=== PATIENT | male | born 1945 | race Caucasian/White ===

== ENCOUNTER 2020-05-21 20:26 | Emergency (ER) | payer MEDICARE, OTHER ==
[2020-05-21 20:35] VITALS: RESP 18; TEMP 98.1
[2020-05-21 20:46] LABS: Basophils # (A) 0.1 k/uL (0-0.2); Basophils % (A) 1 %; Eosinophils # (A) 0.2 k/uL (0-0.7); Eosinophils % (A) 2 %; HGB 15.8 gm/dL (13.0-17.5); Lymphocytes # (A) 2.4 k/uL (1.0-4.8); Lymphocytes % (A) 27 %; MCHC 34.3 g/dL (31.0-37.0); MCV 93.5 fL (80.0-100.0); Mean Platelet Volume 7.6; Monocytes % (A) 11 %; Neutrophils # (A) 5.2 k/uL (1.3-7.7); Neutrophils % (A) 57 %; Platelet Count 228 k/uL (150-450); RBC 4.92 m/uL (4.30-5.90); RDW 12.4 % (11.5-15.5); WBC 9.1 k/uL (3.8-10.6)
[2020-05-21 20:55] LABS: Albumin 4.3 g/dL (3.5-5.0); Calcium 9.4 mg/dL (8.4-10.2); Partial Thromboplastin Time 23.2 sec (22.0-30.0); Potassium 4.6 mmol/L (3.5-5.1); Prothrombin Time 9.9 sec (9.0-12.0); Total Bilirubin 0.8 mg/dL (0.2-1.3); Total Protein 6.7 g/dL (6.3-8.2)
--- NOTE | 2020-05-21 20:58 | ED ---
General Adult HPI - General Chief complaint: Neuro Symptoms/Deficit Stated complaint: Possible Stroke Source: patient Mode of arrival: EMS Limitations: no limitations - History of Present Illness Initial comments: Patient is a 74-year-old male with past medical history of TIA on Plavix presents emergency Department with reported strokelike symptoms. Patient states that his symptoms started around 11:00 AM this morning. He was having difficulty finding his words. States that his symptoms were persistent all day to the point where he finally called EMS. EMS arrived and stated that he was having some expressive aphasia and some facial droop however this did entirely resolve by the time the patient got into the emergency department. He arrives with no visual complaints. Denies headaches or neck stiffness. No recent fevers or chills. Denies any unilateral numbness or weakness. No appreciable speech deficits from the patient at this time. Patient denies any chest pain or shortness of breath. No difficulties with ambulation. Patient does report to recent head trauma 12 days ago for which she fell and hit his head on a plastic garbage can. Denies that his symptoms are present at that time. No other alleviating, precipitating or modifying factors - Related Data Home Medications Medication Instructions Recorded Confirmed Citalopram Hydrobromide [CeleXA] 10 mg PO DAILY 04/05/15 04/05/15 Meloxicam [Mobic] 15 mg PO HS 04/05/15 04/05/15 Previous Rx's Medication Instructions Recorded HYDROcodone/APAP 5-325MG [[place] 5] 1 each PO Q6HR #30 tab 04/05/15 Naproxen [Naprosyn] 500 mg PO Q12HR #60 tab 04/05/15 Ondansetron Odt [Zofran Odt] 4 mg PO Q8HR #30 tab 04/05/15 Tamsulosin HCl [Flomax] 0.4 mg PO DAILY #30 cap 04/05/15 Allergies Allergy/AdvReac Type Severity Reaction Status Date / Time nitroglycerin AdvReac Unknown Verified 04/05/15 04:25 [From Nitro-Bid] Sulfa (Sulfonamide AdvReac Unknown Verified 04/05/15 04:25 Antibiotics) Review of Systems ROS Statement: Those systems with pertinent positive or pertinent negative responses have been documented in the HPI. ROS Other: All systems not noted in ROS Statement are negative. Past Medical History Past Medical History: No Reported History, CVA/TIA History of Any Multi-Drug Resistant Organisms: None Reported Past Surgical History: Appendectomy, Orthopedic Surgery Additional Past Surgical History / Comment(s): hand sx Past Psychological History: Anxiety Smoking Status: Never smoker Past Alcohol Use History: Occasional Past Drug Use History: None Reported General Exam Limitations: no limitations General appearance: alert, in no apparent distress Head exam: Present: atraumatic, normocephalic, normal inspection Eye exam: Present: normal appearance, PERRL, EOMI. Absent: scleral icterus, conjunctival injection, periorbital swelling ENT exam: Present: normal exam, mucous membranes moist Neck exam: Present: normal inspection. Absent: tenderness, meningismus, lymphadenopathy Respiratory exam: Present: normal lung sounds bilaterally. Absent: respiratory distress, wheezes, rales, rhonchi, stridor Cardiovascular Exam: Present: regular rate, normal rhythm, normal heart sounds. Absent: systolic murmur, diastolic murmur, rubs, gallop, clicks GI/Abdominal exam: Present: soft, normal bowel sounds. Absent: distended, tenderness, guarding, rebound, rigid Extremities exam: Present: normal inspection, full ROM, normal capillary refill. Absent: tenderness, pedal edema, joint swelling, calf tenderness Back exam: Present: normal inspection Neurological exam: Present: alert, oriented X3, CN II-XII intact Psychiatric exam: Present: normal affect, normal mood Skin exam: Present: warm, dry, intact, normal color. Absent: rash Course Vital Signs 05/21/20 05/21/20 20:29 21:18 Temperature 98.1 F Pulse Rate 88 77 Respiratory 18 18 Rate Blood Pressure 169/88 157/69 O2 Sat by Pulse 100 100 Oximetry - Reevaluation(s) Reevaluation #1: This case with Dr. Trevino called stated that the patient was positive for an acute on chronic subdural 05/21/20 21:00 EKG Findings - EKG Comments: EKG Findings:: EKG demonstrates normal sinus rhythm with a ventricular rate of 79. [place] interval 200. QRS 154. QTC of 465. There is a right bundle branch b lock present. No acute ST segment elevations or depressions Medical Decision Making - Medical Decision Making Upon arrival the patient is placed into room 1. A thorough history and physical exam was performed. NIH stroke scale is performed and the patient has a score of 0. Speech is intact. No facial droop. Patient has intact strength rosy aterally. Code stroke is not activated due to a negative NIH. Patient is immediately sent over for CT as well as CT angios of the head and neck without laboratory studies as the patient has no history of kidney disease. Laboratory studies returned and are negative. CT of the patient's brain is evaluated by Dr. Galvan any does call me to note that there is a large left-sided acute and chronic subdural. The patient is reevaluated and continues to have a negative NIH. He remains alert and oriented. I did discuss the diagnosis and treatment options. I recommended immediate transfer to a facility with neurosurgical capabilities. Patient agreed to this. I discussed the case with a [facility]. Accepting physician is Dr. Reid. Patient will be transported lights and sirens to [facility]. - Lab Data Result diagrams: 05/21/20 20:39 05/21/20 20:39 Lab Results 05/21/20 05/21/20 05/21/20 Range/Units 20:39 20:39 20:39 WBC 9.1 (3.8-10.6) k/uL RBC 4.92 (4.30-5.90) m/uL Hgb 15.8 (13.0-17.5) gm/dL Hct 46.0 (39.0-53.0) % MCV 93.5 (80.0-100.0) fL MCH 32.0 (25.0-35.0) pg MCHC 34.3 (31.0-37.0) g/dL RDW 12.4 (11.5-15.5) % Plt Count 228 (150-450) k/uL Neutrophils % 57 % Lymphocytes % 27 % Monocytes % 11 % Eosinophils % 2 % Basophils % 1 % Neutrophils # 5.2 (1.3-7.7) k/uL Lymphocytes # 2.4 (1.0-4.8) k/uL Monocytes # 1.0 (0-1.0) k/uL Eosinophils # 0.2 (0-0.7) k/uL Basophils # 0.1 (0-0.2) k/uL PT 9.9 (9.0-12.0) sec INR 1.0 (<1.2) APTT 23.2 (22.0-30.0) sec Sodium 137 (137-145) mmol/L Potassium 4.6 (3.5-5.1) mmol/L Chloride 106 (98-107) mmol/L Carbon Dioxide 23 (22-30) mmol/L Anion Gap 8 mmol/L BUN 30 H (9-20) mg/dL Creatinine 1.25 (0.66-1.25) mg/dL Est GFR (CKD-EPI)AfAm 65 (>60 ml/min/1.73 sqM) Est GFR (CKD-EPI)NonAf 56 (>60 ml/min/1.73 sqM) Glucose 179 H (74-99) mg/dL Calcium 9.4 (8.4-10.2) mg/dL Total Bilirubin 0.8 (0.2-1.3) mg/dL AST 34 (17-59) U/L ALT 27 (4-49) U/L Alkaline Phosphatase 75 (38-126) U/L Troponin I (0.000-0.034) ng/mL Total Protein 6.7 (6.3-8.2) g/dL Albumin 4.3 (3.5-5.0) g/dL 05/21/20 Range/Units 20:39 WBC (3.8-10.6) k/uL RBC (4.30-5.90) m/uL Hgb (13.0-17.5) gm/dL Hct (39.0-53.0) % MCV (80.0-100.0) fL MCH (25.0-35.0) pg MCHC (31.0-37.0) g/dL RDW (11.5-15.5) % Plt Count (150-450) k/uL Neutrophils % % Lymphocytes % % Monocytes % % Eosinophils % % Basophils % % Neutrophils # (1.3-7.7) k/uL Lymphocytes # (1.0-4.8) k/uL Monocytes # (0-1.0) k/uL Eosinophils # (0-0.7) k/uL Basophils # (0-0.2) k/uL PT (9.0-12.0) sec INR (<1.2) APTT (22.0-30.0) sec Sodium (137-145) mmol/L Potassium (3.5-5.1) mmol/L Chloride (98-107) mmol/L Carbon Dioxide (22-30) mmol/L Anion Gap mmol/L BUN (9-20) mg/dL Creatinine (0.66-1.25) mg/dL Est GFR (CKD-EPI)AfAm (>60 ml/min/1.73 sqM) Est GFR (CKD-EPI)NonAf (>60 ml/min/1.73 sqM) Glucose (74-99) mg/dL Calcium (8.4-10.2) mg/dL Total Bilirubin (0.2-1.3) mg/dL AST (17-59) U/L ALT (4-49) U/L Alkaline Phosphatase (38-126) U/L Troponin I <0.012 (0.000-0.034) ng/mL Total Protein (6.3-8.2) g/dL Albumin (3.5-5.0) g/dL Disposition Clinical Impression: Acute on chronic intracranial subdural hematoma Disposition: OTHER INSTITUTION NOT DEFINED Condition: Serious Is patient prescribed a controlled substance at d/c from ED?: No Referrals: Aurora Nichols MD [Primary Care Provider] - 1-2 days Time of Disposition: 21:21 - Out of Hospital Transfer - Req. Specs Out of Hospital Transfer - Requested Specifics: Other Emergency Center ([facility])
--- NOTE | 2020-05-21 20:58 | CT ---
EXAMINATION TYPE: CT brain wo con DATE OF EXAM: 05/21/2020 COMPARISON: None HISTORY: cva CT DLP: 1102.8 mGycm Automated exposure control for dose reduction was used. Images were obtained of the brain without contrast. There is widening of the subdural space over the left cerebral hemisphere convexity up to 1.6 cm in t hickness. There is mixed attenuation consistent with acute and chronic subdural hematoma. There is so me shift of the midline to the right side. The ventricles have normal size. I see no sign of cerebral edema. I see no evidence of cerebral parenchymal hemorrhage. The calvarium is intact. Cerebellum hyacinth ears normal. IMPRESSION: Large left side acute and chronic subdural hematoma.
--- NOTE | 2020-05-21 21:01 | XR ---
EXAMINATION TYPE: XR chest 2V DATE OF EXAM: 05/21/2020 COMPARISON: NONE HISTORY: Altered mental status TECHNIQUE: 2 views FINDINGS: There is some mild linear density at the left lung base. Heart is normal. There are no zo r masses. Costophrenic angles are clear. Bony thorax is intact. IMPRESSION: Mild subsegmental atelectasis. Normal heart.
[2020-05-21 21:19] VITALS: BP 157/69; PULSE 77
--- NOTE | 2020-05-21 21:38 | CT ---
EXAMINATION TYPE: CT angio head neck DATE OF EXAM: 05/21/2020 COMPARISON: None HISTORY: suspected cva CT DLP: 657.6 mGycm Automated exposure control for dose reduction was used. CONTRAST: Performed with IV Contrast, patient injected with 65cc mL of Isovue 370. Images obtained from the aortic arch to the vertex of the brain with IV contrast and 3-D post process ed images. There is normal branching pattern of the great vessels on the aortic arch. There is bilateral arteria l flow in the subclavian arteries. There is arterial flow in the common internal and external carotid arteries bilaterally. There is plaque formation and calcification at the posterior wall of the left carotid artery bifurcation. Similar change is seen also on the right side with some plaque formation. Lumen narrowing is less than 20%. There is arterial flow in both vertebral arteries. There is no surjit dence of carotid or vertebral artery aneurysm or dissection. There is large subdural fluid collection measuring up to 1.9 cm in thickness over the left hemisphere convexity consistent with subdural hemorrhage. There is some shift of the midline to the right side. There is arterial flow in the anterior middle and posterior cerebral arteries. There is arterial flow in the vertebrobasilar artery system. I see no evidence of intracranial arterial stenosis. There is no contrast extravasation. I see no pathologic enhancement. There is normal contrast opacification of the venous sinuses. IMPRESSION: Mild plaque at the carotid artery bifurcations and less than 20% stenosis at the origins of the inter nal carotid arteries. Large left cerebral hemisphere subdural hematoma with mass effect. No CT angiographic abnormality of the brain identified.
== END 2020-05-21 21:47 | disposition other institution (70) ==
LOC: EC 20:26
DX: I62.01 Nontraumatic acute subdural hemorrhage (principal); I62.03 Nontraumatic chronic subdural hemorrhage; R29.810 Facial weakness; R47.01 Aphasia; R29.700 NIHSS score 0; F41.9 Anxiety disorder, unspecified; Z79.899 Other long term (current) drug therapy; Z88.8 Allergy status to other drugs, medicaments and biological substances; Z88.2 Allergy status to sulfonamides; Z86.73 Personal history of transient ischemic attack (TIA), and cerebral infarction without residual deficits
CPT/HCPCS: 36415; 93005; 80053; 84484; 85025; 85610; 85730; 71046; 70496; 70450; 70498; 99285; Q9967

== ENCOUNTER → 2021-07-04 | Outpatient (CLI) | payer MEDICARE, OTHER ==
--- NOTE | 2021-07-04 14:25 | P.CONS ---
History of Present Illness - Reason for Consult Consult date: 07/04/21 - Chief Complaint Lower back pain - History of Present Illness This is a 75-year-old gentleman with history of lower back pain which started after intracranial subdural hematoma couple of years ago. The patient started having this pain after the surgery was also loss of balance. The pain is mostly axial with no radiation to the lower extremities. The pain starts after a few minutes of standing or walking. The patient denies any weakness in the lower extremities or any bowel or bladder problems. The lumbar spine MRI showed degenerative disease and facet arthropathy. He has diet-controlled diabetes and denies using any anticoagulants. Past Medical History Past Medical History: Seizure Disorder Additional Past Medical History / Comment(s): hx subdural hematoma History of Any Multi-Drug Resistant Organisms: None Reported Past Surgical History: Appendectomy, Orthopedic Surgery Additional Past Surgical History / Comment(s): hand sx rosy trigger x4 each hand, rosy knee surgery. brain bleed 06/03/21 with surgery and titanium plate Past Anesthesia/Blood Transfusion Reactions: No Reported Reaction Smoking Status: Never smoker - Past Family History Brother(s) Family Medical History: Cancer Additional Family Medical History / Comment(s): esophageal cancer Medications and Allergies Home Medications Medication Instructions Recorded Confirmed Type Citalopram Hydrobromide [CeleXA] 10 mg PO DAILY 04/05/15 04/05/15 History HYDROcodone/APAP 5-325MG [[place] 5] 1 each PO Q6HR #30 tab 04/05/15 Rx Meloxicam [Mobic] 15 mg PO HS 04/05/15 04/05/15 History Naproxen [Naprosyn] 500 mg PO Q12HR #60 tab 04/05/15 Rx Ondansetron Odt [Zofran Odt] 4 mg PO Q8HR #30 tab 04/05/15 Rx Tamsulosin HCl [Flomax] 0.4 mg PO DAILY #30 cap 04/05/15 Rx Allergies Allergy/AdvReac Type Severity Reaction Status Date / Time nitroglycerin AdvReac Unknown Verified 07/01/21 14:48 [From Nitro-Bid] Sulfa (Sulfonamide AdvReac Unknown Verified 07/01/21 14:48 Antibiotics) Physical Exam - EENT Eyes: PERRLA - Neurologic Neuro exam of the lower extremities showed normal and symmetrical deep tendon reflexes and normal muscle strength. The patient's ambulation is not steady due to imbalance. Positive tenderness in the lumbar paravertebral musculature Positive facet loading test in the lumbar area Neurologic: CNII-XII intact - Psychiatric Psychiatric: A&O x's 3, appropriate affect, intact judgment & insight Assessment and Plan Plan: This is a 75-year-old gentleman status post subdural hematoma evacuation around the left cerebral hemisphere. The patient has axial lower back pain and gait imbalance. The patient has lumbar DDD, lumbar spondylosis without myelopathy. He will benefit from a diagnostic lumbar medial branch block for levels L3 4, L4-L5, and L5-S1 under fluoroscopic guidance bilaterally. I thank you for the referral
[2021-07-04 14:31] VITALS: BP 109/70; PULSE 83; RESP 18; TEMP 97.9
== END ==
LOC: PNWHC3 13:40
PROVIDERS: ATTEND Anesthesiology
DX: M51.36 Other intervertebral disc degeneration, lumbar region (principal); M47.816 Spondylosis without myelopathy or radiculopathy, lumbar region; R26.89 Other abnormalities of gait and mobility; Z86.79 Personal history of other diseases of the circulatory system; Z98.890 Other specified postprocedural states; G40.909 Epilepsy, unspecified, not intractable, without status epilepticus; Z88.2 Allergy status to sulfonamides; E11.9 Type 2 diabetes mellitus without complications; Z88.8 Allergy status to other drugs, medicaments and biological substances
CPT/HCPCS: 99211

== ENCOUNTER 2021-07-15 05:47 | Day surgery (SDC) | payer MEDICARE, OTHER ==
[2021-07-14 10:05] VITALS: BMI 30.1
[2021-07-15] MEDS ORDERED: LACTATED RINGERS 1,000 ML IV SCH (06:01)
[2021-07-15] MEDS ORDERED: LIDOCAINE 1% (10MG/ML) FOR IV START INTRADERMA ONE (06:43)
[2021-07-15 06:50] LABS: Glucose,Whole Blood 164 mg/dL (75-99)
[2021-07-15 06:51] VITALS: RESP 16; TEMP 97.1
[2021-07-15] MEDS ORDERED: TRIAMCINOLONE ACETONIDE 40 MG/ML 1 ML VIAL ONE (07:06)
[2021-07-15] MEDS ORDERED: MIDAZOLAM 2 MG/2 ML VIAL ONE (07:06)
[2021-07-15] MEDS ORDERED: ROPIVACAINE 5MG/ML 20ML VIAL ONE (07:06)
[2021-07-15] MEDS ORDERED: fentaNYL (PF) 50 MCG/ML 2 ML AMP ONE (07:06)
[2021-07-15] MEDS ORDERED: IV FLUID CONTINUATION 1,000 ML IV ONE (07:29)
--- NOTE | 2021-07-15 07:30 | P.PCN ---
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 2- Lumber degenerative disc disease POSTOPERATIVE DIAGNOSIS: 1- Lumbar spondylosis with Facet Arthropathy without myelopathy . 2- Lumber degenerative disc disease PROCEDURE: Diagnostic bilateral L3 , L4 , and L5 medial branch block under fluoroscopy guidance(fluoroscopy images available in the radiology Department ) ( To target the facet joint between L4-5 , and L5-S1 ) ANESTHESIA:,Monitered anesthesia care ,as per anesthesia Department.. EBL: Minimal COMPLICATION: None PROCEDURE INDICATION: Chronic low back pain secondary to Facet arthropathy unresponsive to conservative treatment. PROCEDURE DESCRIPTION: the patient was seen and identified in the preop holding area , risks and benefits and possible complications of the procedure and alternative were discussed with the patient, and the patient agreed to proceed with the procedure and signed the consent and vital signs monitored during the procedure and fluoroscopy was used to maximize the benefit and accuracy of the needle placement, and sedation was given to decrease patient anxiety, patient was taken to the procedure room and placed in prone position vital signs monitored in the back prepped with chlorhexidine X3 then under strict sterile technique using a right oblique fluoroscopy ,the junction of the transverse process and the superior articulating process of the right L3 , L4 , and L5 vertebra which corresponding to the fluoroscopy image of the eye of the Fausto dog on the block side for the medial branches and subsequently , after local infiltration of skin and subcu tissuies with Ropivacaine 0.5 % , one mL at each level ,then 22-gauge Quincke-type needles , 3 needle was used , each one of them placed at the junction of the base of the transverse process and the superior articular process at the appropriate level, and the needle was advanced until the periosteum contacted, needle placement confirmed with AP oblique and lateral view and after appropriate needle placement confirmed, and after negative aspiration for heme and CSF and there was no paresthesia 1-1/2 mL of Ropivacaine 0.5% mixed with 20 mg Kenalog , then half mL injected at each level after negative aspiration the needle subsequently removed and the same procedure repeated for the left side at left side at L3 , L4 and L5 levels. At the end of the procedure and the needles removed and a bandage applied after the skin was cleaned the cleaning solution patient taken to recovery room in stable condition and monitors in the recovery room for 20-30 minutes and discharged home in stable condition after discharge criteria met and patient will follow up with the pain clinic in 2-4 weeks
--- NOTE | 2021-07-15 07:36 | FL ---
EXAMINATION TYPE: FL guided pain mgmt statistic DATE OF EXAM: 07/15/2021 CLINICAL HISTORY: Low back pain. TECHNIQUE: Fluoroscopy. COMPARISON: None. FINDINGS: Fluoroscopic guidance was provided during pain relief procedure performed by Dr. Merino . A total of 10 seconds of fluoroscopic time was utilized during the procedure and 4 spot images are acquired. Images acquired shows needle localization at multiple levels in the lumbar spine. IMPRESSION: As Above.
[2021-07-15 07:47] VITALS: BP 115/73; PULSE 66
== END 2021-07-15 08:06 | disposition home or self-care (01) ==
LOC: ORPAIN 05:47
PROVIDERS: ATTEND Specialist
DX: G89.29 Other chronic pain (principal); M47.816 Spondylosis without myelopathy or radiculopathy, lumbar region
CPT/HCPCS: 64493; 64494; J2250; J3301; J3010; J2795

== ENCOUNTER 2021-08-26 08:36 | Day surgery (SDC) | payer MEDICARE, OTHER ==
[2021-08-24 16:14] VITALS: BMI 31.1
[~2021-08-26 08:36] MED LIST: LACTATED RINGERS 1,000 ML IV SCH
[2021-08-26 09:37] VITALS: TEMP 98.2
[2021-08-26 09:37] LABS: Glucose,Whole Blood 207 mg/dL (75-99)
[2021-08-26] MEDS ORDERED: methylPREDNISolone ACETATE 40 MG/ML 1 ML VIAL ONE (09:49)
[2021-08-26] MEDS ORDERED: ROPIVACAINE 5MG/ML 20ML VIAL ONE (09:49)
[2021-08-26] MEDS ORDERED: fentaNYL (PF) 50 MCG/ML 2 ML AMP ONE (09:50)
[2021-08-26] MEDS ORDERED: MIDAZOLAM 2 MG/2 ML VIAL ONE (09:50)
--- NOTE | 2021-08-26 10:10 | P.PCN ---
Date of Procedure: 08/26/21 Procedure(s) Performed: PREOPERATIVE DIAGNOSIS : 1- Lumbar spondylosis with Facet Arthropathy without myelopathy . 2- Lumber degenerative disc disease POSTOPERATIVE DIAGNOSIS: 1- Lumbar spondylosis with Facet Arthropathy without myelopathy . 2- Lumber degenerative disc disease PROCEDURE: Diagnostic bilateral L3 , L4 , and L5 medial branch block under fluoroscopy guidance(fluoroscopy images available in the radiology Department ) ( To target the facet joint between L4-5 , and L5-S1 )# 2nd ANESTHESIA:,Monitered anesthesia care ,as per anesthesia Department.. EBL: Minimal COMPLICATION: None PROCEDURE INDICATION: Chronic low back pain secondary to Facet arthropathy unresponsive to conservative treatment. PROCEDURE DESCRIPTION: the patient was seen and identified in the preop holding area , risks and benefits and possible complications of the procedure and alternative were discussed with the patient, and the patient agreed to proceed with the procedure and signed the consent and vital signs monitored dur ing the procedure and fluoroscopy was used to maximize the benefit and accuracy of the needle placement, and sedation was given to decrease patient anxiety, patient was taken to the procedure room and placed in prone position vital signs monitored in the back prepped with chlorhexidine X3 then under strict sterile technique using a right oblique fluoroscopy ,the junction of the transverse process and the superior articulating process of the right L3 , L4 , and L5 vertebra which corresponding to the fluoroscopy image of the eye of the Fausto dog on the block side for the medial branches and subsequently , after local infiltration of skin and subcu tissuies with Ropivacaine 0.5 % , one mL at each level ,then 22-gauge Quincke-type needles , 3 needle was used , each one of them placed at the junction of the base of the transverse process and the superior articular process at the appropriate level, and the needle was advanced until the periosteum contacted, needle placement confirmed with AP oblique and lateral view and after appropriate needle placement confirmed, and after negative aspiration for heme and CSF and there was no paresthesia 1-1/2 mL of Ropivacaine 0.5% mixed with 20 mg Depo-Medrol , then half mL injected at each level after negative aspiration the needle subsequently removed and the same procedure repeated for the left side at left side at L3 , L4 and L5 levels. At the end of the procedure and the needles removed and a bandage applied after the skin was cleaned the cleaning solution patient taken to recovery room in stable condition and monitors in the recovery room for 20-30 minutes and discharged home in stable condition after discharge criteria met and patient will follow up with the pain clinic in 2-4 weeks
[2021-08-26] MEDS ORDERED: IV FLUID CONTINUATION 1,000 ML IV ONE (10:15)
[2021-08-26 10:27] LABS: Glucose,Whole Blood 234 mg/dL (75-99)
[2021-08-26] MEDS ORDERED: INSULIN ASPART (NovoLOG) 100 UNIT/ML VIAL SQ ONE (10:46)
[2021-08-26 11:03] VITALS: BP 122/70; PULSE 71; RESP 16
[2021-08-26 11:08] LABS: Glucose,Whole Blood 190 mg/dL (75-99)
--- NOTE | 2021-08-26 11:23 | FL ---
EXAMINATION TYPE: FL guided pain mgmt statistic DATE OF EXAM: 08/26/2021 FLUOROSCOPY Fluoroscopy time of 30 seconds was used during bilateral facet block. Intervention procedure, needle placement. 4 image/s document/s the procedure.
== END 2021-08-26 11:18 | disposition home or self-care (01) ==
LOC: ORPAIN 08:36
PROVIDERS: ATTEND Specialist
DX: M47.816 Spondylosis without myelopathy or radiculopathy, lumbar region (principal); G89.29 Other chronic pain
CPT/HCPCS: 64493; 64494; J2250; J1030; J3010; J2795

== ENCOUNTER → 2021-09-14 | Outpatient (CLI) | payer MEDICARE, OTHER ==
[2021-09-14 11:07] VITALS: BP 115/71; PULSE 80; RESP 18; TEMP 98.7
--- NOTE | 2021-09-14 11:14 | P.PN ---
Subjective Progress Note Date: 09/14/21 This is follow up visits for this 75 years old male with a chronic history of lower back pain which started after intracranial subdural hematoma couple of years ago. The patient started having this pain after the surgery was also loss of balance. The pain is mostly axial with no radiation to the lower e xtremities. The pain starts after a few minutes of standing or walking. The patient denies any weakness in the lower extremities or any bowel or bladder problems. The lumbar spine MRI showed degenerative disease and facet arthropathy. He has diet-controlled diabetes and denies using any anticoagulants. Recently we had done diagnostic medial branch block lumbar area at L4 5 and L5-S1, and get more than 80% improvement of his low back pain after each block, and the pain relief lasted for short term - EENT Eyes: PERRLA - Neurologic Neuro exam of the lower extremities showed normal and symmetrical deep tendon reflexes and normal muscle strength. The patient's ambulation is not steady due to imbalance. Positive tenderness in the lumbar paravertebral musculature Positive facet loading test in the lumbar area Neurologic: CNII-XII intact - Psychiatric Psychiatric: A&O x's 3, appropriate affect, intact judgment & insight Assessment and Plan Plan: This is a 75-year-old gentleman status post subdural hematoma evacuation around the left cerebral hemisphere. The patient has axial lower back pain and gait imbalance. The patient has lumbar DDD, lumbar spondylosis without myelopathy. He will benefit fromRFA lumbar medial branch block for levels L4-L5, and L5-S1 under fluoroscopic guidance bilaterally. Objective - Vital Signs Vital signs: Vital Signs Temp 98.7 F 09/14/21 10:56 Pulse 80 09/14/21 10:56 Resp 18 09/14/21 10:56 BP 115/71 09/14/21 10:56 Pulse Ox 96 09/14/21 10:56
== END ==
LOC: PNWHC3 10:26
PROVIDERS: ATTEND Specialist
DX: M51.36 Other intervertebral disc degeneration, lumbar region (principal); M47.816 Spondylosis without myelopathy or radiculopathy, lumbar region; R26.9 Unspecified abnormalities of gait and mobility; Z98.890 Other specified postprocedural states; Z88.2 Allergy status to sulfonamides; Z88.8 Allergy status to other drugs, medicaments and biological substances
CPT/HCPCS: 99211

== ENCOUNTER 2021-10-13 12:26 | Day surgery (SDC) | payer MEDICARE, OTHER ==
[2021-10-11 09:28] VITALS: BMI 30.1
[2021-10-13 13:08] VITALS: TEMP 98
[2021-10-13] MEDS: LACTATED RINGERS 1,000 ML IV SCH ×2 (13:20→13:23)
[2021-10-13 13:21] LABS: Glucose,Whole Blood 161 mg/dL (75-99)
[2021-10-13] MEDS ORDERED: MIDAZOLAM 2 MG/2 ML VIAL ONE (13:31)
[2021-10-13] MEDS ORDERED: fentaNYL (PF) 50 MCG/ML 2 ML AMP ONE (13:31)
[2021-10-13] MEDS ORDERED: TRIAMCINOLONE ACETONIDE 40 MG/ML 1 ML VIAL ONE (13:31)
[2021-10-13] MEDS ORDERED: ROPIVACAINE 5MG/ML 20ML VIAL ONE (13:31)
--- NOTE | 2021-10-13 14:03 | P.PCN ---
Date of Procedure: 10/13/21 Description of Procedure: Pre- and Post-operative Diagnosis: Lumbar facet arthropathy, and lumbar spondylosis without myelopathy. Procedure: Bilateral L4-5 radiofrequency thermocoagulation of medial branch under fluoroscopic guidance Bilateral L5-S1 dorsal ramus radiofrequency thermocoagulation under fluoroscopic guidance Surgeon: Anjelica Rosado Anesthesia: Local: 1% Lidocaine, IV sedation : Midazolam 2 mg, and fentanyl 50 micrograms. Complications: None Estimated blood loss: None. Specimen removed: None Fluoroscopic image: Saved to patient electronic medical records. Indications for Procedure: The patient is well known to pain clinic for his chronic low back pain management. The lumbar facet loading test was positive with a clinical diagnosis of lumbar facet arthropathy. Patient had marked decrease in pain after the diagnostic medial branch procedure. Came here for radiofrequency ablation for longer pain relief. PROCEDURE DESCRIPTION: The patient was seen and identified in the preoperative area. Risks, benefits, complications, and alternatives were discussed with the patient. The patient agreed to proceed with the procedure and signed the consent. IV was started. Vital signs were stable. Patient was taken to the procedure room and timeout was completed. The patient was placed in the prone position on procedure table and a pillow was placed under the abdomen to reduce lumbar lordosis. The lumbosacral area was prepped and draped in the usual sterile fashion. Critical pause was taken. Vital signs were closely monitored during the procedure. The fluoroscopic camera was placed in the anteroposterior position to identify the junction of superior articular process and its corresponding injection with its transverse process of Right side L4, L5, S1, which were anesthetized with 3 ml of 1% lidocaine. We used 18-gauge 100-mm curved, sharp radiofrequency cannula with 10-mm active tip for the procedure. The first cannula was guided by fluoroscopy to the S1 superior articular process and its corresponding junction with its ala. The second cannula was guided by fluoroscopy into the L5 superior articular process and its corresponding junction with its transverse process and pedicle. The third cannula was guided by fluoroscopy into the L4 SAP and its corresponding junction with its transverse process and its pedicle. After confirmation of needle tip position on oblique view, each site underwent motor testing at 2 Hz and 0 to 2.5 volts, and there was good motor stimulation in the back and no radicular symptoms or paresthesias. After confirmation of motor testing, each site was infiltrated with 0.5 mL at each level of block solution. Block solution contained 4 mL of 0.5% ropivacaine preservative free mixed with 40 MG of Kenalog. At this time, each site was ablated using continuous radiofrequency mode at 80 degrees Celsius for 90 seconds at each level. At the end of the procedure, each needle was retracted approximately 1 cm and the skin was infiltrated with 0.5% ropivacaine preservative free 1 ml at each site. Entire procedure repeated on the left side. Skin was cleansed and bandages were applied. Disposition : The patient tolerated the procedure very well. The patient was transferred to the recovery room and remained stable until discharged home. The patient was given detailed discharge instructions for infection, bleeding, and increased pain at the injection site, and was advised to seek immediate medical attention should significant side effects develop. The patient will be scheduled with Pain Clinic within 4 -8 weeks.
[2021-10-13] MEDS ORDERED: IV FLUID CONTINUATION 1,000 ML IV ONE (14:07)
[2021-10-13 14:09] VITALS: RESP 18
[2021-10-13 14:23] VITALS: BP 116/80; PULSE 77
--- NOTE | 2021-10-13 15:33 | FL ---
EXAMINATION TYPE: FL guided pain mgmt statistic DATE OF EXAM: 10/13/2021 HISTORY: Fluoroscopy time 12 seconds of fluoroscopy provided. IMPRESSION: 1. Fluoroscopy time.
== END 2021-10-13 14:39 | disposition home or self-care (01) ==
LOC: ORPAIN 12:26
DX: G89.29 Other chronic pain (principal); M47.816 Spondylosis without myelopathy or radiculopathy, lumbar region; E11.9 Type 2 diabetes mellitus without complications; M19.90 Unspecified osteoarthritis, unspecified site; R56.9 Unspecified convulsions; Z86.79 Personal history of other diseases of the circulatory system; Z98.49 Cataract extraction status, unspecified eye; Z98.890 Other specified postprocedural states; Z90.49 Acquired absence of other specified parts of digestive tract; Z88.2 Allergy status to sulfonamides; Z88.8 Allergy status to other drugs, medicaments and biological substances
CPT/HCPCS: 64635; 64636; J2250; J3301; J3010; J2795; 99152; 99153

== ENCOUNTER → 2021-11-17 | Outpatient (CLI) | payer MEDICARE, OTHER ==
[2021-11-17 13:57] VITALS: BP 116/70; PULSE 78; RESP 18; TEMP 98.7
--- NOTE | 2021-11-17 13:58 | P.PN ---
Subjective Progress Note Date: 11/17/21 Principal diagnosis: A 75 yr old male with a history of severe and chronic low back pain secondary to lumbar degenerative disc diseases and lumbar spondylosis with facet arthropathy presents today for evaluation for bilateral L4-L5 L5-S1 RFA. Patient completed this procedure in September 2021 and experienced only 5% pain relief. Pain level is 10/10 in intensity, sharp shooting in the lower lumbar spine where it meets the pelvis. Pain is provoked by sitting for prolonged p eriods of time. Pain is alleviated with medications and injections physical therapy stretching and rest. Patient is wheelchair-bound and presents with a female quantitative developer at side. Interventional pain procedures completed include bilateral L4-L5, L5-S1 RFA Patient is currently on OTC Motrin Patient denies any side effects of the medication(s), denies excessive drowsiness or sleepiness, denies suicidal ideation and reports that the current pain medication is helping to control the pain and improve activities of daily living. Patient denies any motor or sensory deficits. Patient denies any fever or night sweats, denies any change in the bowel movements or urination. Physical Examination: -Constitutional: Cooperative. Not in acute distress . -HEENT: Neck is supple. No lymphadenopathy. No thyromegaly. Normal thyroid size. Eyes: No ptosis , no icterus, no photophobia. ENT: No auditory deficits. Normal oropharynx. No Thrush. - Respiratory: Chest clear to auscultations bilaterally. No wheezing. No rhonchi. - Cardiovascular: Regular rate and rhythm. S1 / S2 , no S3 , no S4. - Gastrointestinal: Abdomen soft no tenderness. Bowel sounds positive in all four quadrants. No organomegaly. - Genitourinary: Deferred. - Neurologic: Cranial nerve II to XII intact. No focal neurological deficits. - Psychatric: Alert & oriented x 3. Matching mood & appropriate affect. Judgment and insight intact. - Lymphatic: No Lymphadenopathy. - Musculoskeletal: Cervical spine: Muscle bulk/ tone/ strength in the bilateral upper extremities normal. Facet loading test cervical area positive. Lumbar spine: Motor bulk/ tone/ strength lower extremities , thigh and legs : 5/5 Deep tendon reflexes : Normal Knee Jerk. Normal Ankle Jerk . Vertebral body tenderness to palpation over the L5 Lumbar Facet Loading Test positive below the L5 transverse bilaterally Straight Leg Raise: positive at 30 degree right side/ left side Rigo test: positive right side / left side Range of motion: Range of motion in flexion of the lumbar spine <60 degrees Range of motion: Extension of the lumbar spine <20 degrees Severe tenderness over the Sacroiliac joint: right side / left side Assessment and plan: Chronic low back pain secondary to lumbar degenerative disc disease , lumbar spondylosis with facet arthropathy without myelopathy Recommendation of bilateral L5 iliolumbar ligament injection May need an additional injection based on response to treatment Will contact Dr Elfego Stone, Neurology, for procedure as pt has a history of seizure disorder Denies use of aspirin or anticoagulants Risks benefits of procedure discussed and patient verbalized understanding All patient questions answered MAPS reviewed and it was appropriate. I have spent 31 minutes on patient care today. Dr Merino was available by phone for the evaluation of this patient. The time was used to review the medical records including relevant urine studies and Prescription history (MAPs), review of the available imaging, evaluation and examination of the patient, coordination of care with the medical staff and if applicable referring physicians, as well as creation of the medical record PQRS Measure Charge Sheet Mode of Arrival: Wheelchair - Pain Location Lower Back Non-Pharmacological Interventions: Home Exercise, Inactivity, Physical Therapy, Stretching Pharmacological Interventions: Block, PRN Medication PQRS Narrative: Smoking Status Never smoker Blood Pressure 116/70 Pain Intensity [Lower Back] 10 Scale Used Numeric (1 - 10) Hx Alcohol Use (MH) Yes Home Medications: Ambulatory Orders Atorvastatin [Lipitor] 40 mg PO HS 07/05/21 Cholecalciferol [Vitamin D3 (25 Mcg = 1000 Iu)] 50 mcg PO DAILY 07/05/21 Cyanocobalamin (Vitamin B-12) [Vitamin B-12] 500 mcg PO DAILY 07/05/21 Melatonin 5 mg PO HS 07/05/21 Ubidecarenone [Co Q-10] 100 mg PO HS 07/05/21 Valproic Acid [Depakene] 250 mg PO DAILY@1500 07/05/21 Venlafaxine HCl ER [Effexor Xr] 150 mg PO 0900 07/05/21 hydrALAZINE HCL [Apresoline] 100 mg PO 0900,1500,209907/05/21 levETIRAcetam 1,000 mg PO DAILY@0900,209907/05/21 Cetirizine HCl 10 mg PO HS 07/14/21 Ibuprofen 200 mg PO DIRECTED PRN 07/14/21 Valproic Acid [Depakene] 500 mg PO DAILY@0900,2100 07/14/21 Vit C/E/Zn/Coppr/Lutein/Zeaxan [Preservision Areds 2 Softgel] 1 each PO DAILY 07/14/21 metFORMIN HCL 500 mg PO PC-BID 09/12/21
== END ==
LOC: PNWHC3 12:57
PROVIDERS: ATTEND Physician Assistant Medical
DX: G89.29 Other chronic pain (principal); M51.36 Other intervertebral disc degeneration, lumbar region; M47.816 Spondylosis without myelopathy or radiculopathy, lumbar region; Z88.2 Allergy status to sulfonamides; Z88.8 Allergy status to other drugs, medicaments and biological substances
CPT/HCPCS: 99211

== ENCOUNTER 2021-12-06 13:10 | Day surgery (SDC) | payer MEDICARE, OTHER ==
[2021-12-02 15:50] VITALS: BMI 30.1
[2021-12-06 13:57] VITALS: TEMP 98
[2021-12-06 14:01] LABS: Glucose,Whole Blood 204 mg/dL (75-99)
[2021-12-06] MEDS ORDERED: LACTATED RINGERS 1,000 ML IV ONE (14:01)
[2021-12-06] MEDS ORDERED: LACTATED RINGERS 1,000 ML IV SCH (14:11)
[2021-12-06] MEDS ORDERED: INSULIN ASPART (NovoLOG) 100 UNIT/ML VIAL SQ ONE (14:17)
[2021-12-06] MEDS ORDERED: methylPREDNISolone ACETATE 40 MG/ML 1 ML VIAL ONE (14:25)
[2021-12-06] MEDS ORDERED: MIDAZOLAM 2 MG/2 ML VIAL ONE (14:25)
[2021-12-06] MEDS ORDERED: fentaNYL (PF) 50 MCG/ML 2 ML AMP ONE (14:25)
[2021-12-06] MEDS ORDERED: ROPIVACAINE 5MG/ML 20ML VIAL ONE (14:25)
--- NOTE | 2021-12-06 14:44 | P.PCN ---
Date of Procedure: 12/06/21 Procedure(s) Performed: Procedure= bilateral iliolumbar ligament steroid injection under fluoroscopy guidance (fluoroscopy image stored on file in the radiology Department ). Preoperative diagnosis= 1-bilateral iliolumbar ligament and neuralgia. 2- lumbar spondylosis with facet arthropathy . Postoperative diagnosis=Same as preop Diagnosis . Complication = none Condition= stable Anesthesia= moderate sedation with intravenous Versed 2 mg , and fentanyl 100 micrograms . Indication for the procedure= patient complaining of low back pain , examination was positive for severe tenderness over the iliolumbar ligament bilaterally and patient diagnosed with a bilateral iliolumbar ligaments nausea and he seems to have injection. Description of the procedure= procedure risk and benefits discussed with the patient, including but not limited, risk of infection and bleeding, and ALLERGIC reaction to the medication and not complete pain relief and patient agreed with the preceding patient taken to the operating room, placed in prone position or standard monitors applied to the patient then after induction of anesthesia back prepped with chlorhexidine 3 times , Then under strict sterile technique, first I did the right iliolumbar ligament the which was identified under fluoroscopy guidance been local infiltration of the skin and subcu interstitial with lidocaine 1% then 22-gauge Quincke Needle advanced slowly under fluoroscopy and placed at the location of the right iliolumbar ligament which is between the transverse process of right , and the sacral alae on the right side, after negative aspiration, after appropriate needle placement confirmed under fluoroscopy, ropivacaine 5 ml 0.5% mixed with 20 mg of Depo-Medrol, injected intermittently after negative aspiration, patient tolerated the procedure well without any complications ,and the same exact procedure was repeated for the left side iliolumbar ligament, patient tolerated the procedure well, without any completion ,and he will follow up in the pain clinic in a few weeks
[2021-12-06] MEDS ORDERED: IV FLUID CONTINUATION 600 ML IV ONE (14:48)
[2021-12-06 15:06] VITALS: RESP 16
[2021-12-06 15:28] VITALS: BP 121/74; PULSE 71
--- NOTE | 2021-12-06 16:32 | FL ---
Fluoroscopy HISTORY: Pain 6 seconds fluoroscopy time supplied to the referring clinician. 2 intraoperative C-arm images docume nt the procedure. See dictated report from anesthesia.
== END 2021-12-06 15:35 | disposition home or self-care (01) ==
LOC: ORPAIN 13:10
PROVIDERS: ATTEND Specialist
DX: G58.8 Other specified mononeuropathies (principal); M47.816 Spondylosis without myelopathy or radiculopathy, lumbar region; Z88.2 Allergy status to sulfonamides; Z88.8 Allergy status to other drugs, medicaments and biological substances; E11.9 Type 2 diabetes mellitus without complications
CPT/HCPCS: 77002; 20550; J2250; J1030; J3010; J2795; 99152

== ENCOUNTER → 2021-12-26 | Outpatient (CLI) | payer MEDICARE, OTHER ==
[2021-12-26 11:42] VITALS: BP 124/65; PULSE 82; RESP 18; TEMP 98.6
--- NOTE | 2021-12-26 12:34 | P.PN ---
Subjective Progress Note Date: 12/26/21 Principal diagnosis: A 76 yr old male with at side with a history of severe and chronic low back pain secondary to lumbar degenerative disc diseases and lumbar spondylosis with facet arthropathy presents today for evaluation status post bilateral iliolumbar ligament injection #1. Patient states he experienced 80-85% pain relief for 4 days status post procedure. Admits he was able to sit on the toilet, stand to bend over to lift pants up with ease. Pain level is currently at 0 out of 10 in intensity when sitting but escalates as high as 9 out of 10 in intensity when walking, standing or lifting. Pain is dull/ achy in the lumbar spine without radiation of pain. Pain is alleviated with medications, topicals, injections, ice and heat which has been ineffective, physical therapy that ended 09/04, home exercise regimen as tolerated, use of a cane or lumbar brace or wheelchair for ambulation, massage therapy that also ended 09/04 and rest. Interventional pain procedures completed include bilateral RFA of L4-L5, L5-S1; Bilateral iliolumbar ligament injection #1. Patient is currently on Motrin OTC, Aspercreme. Patient denies any side effects of the medication(s), denies excessive drowsiness or sleepiness, denies suicidal ideation and reports that the current pain medication is helping to control the pain and improve activities of daily living. Patient denies any motor or sensory deficits. Patient denies any fever or night sweats, denies any change in the bowel movements or urination. Physical Examination: -Constitutional: Cooperative. Not in acute distress . -HEENT: Neck is supple. No lymphadenopathy. No thyromegaly. Normal thyroid size. Eyes: No ptosis , no icterus, no photophobia. ENT: No auditory deficits. Normal oropharynx. No Thrush. - Respiratory: Chest clear to auscultations bilaterally. No wheezing. No rhonchi. - Cardiovascular: Regular rate and rhythm. S1 / S2 , no S3 , no S4. - Gastrointestinal: Abdomen soft no tenderness. Bowel sounds positive in all four quadrants. No organomegaly. - Genitourinary: Deferred. - Neurologic: Cranial nerve II to XII intact. No focal neurological deficits. - Psychatric: Alert & oriented x 3. Matching mood & appropriate affect. Judgment and insight intact. - Lymphatic: No Lymphadenopathy. - Musculoskeletal: Cervical spine: Muscle bulk/ tone/ strength in the bilateral upper extremities normal. Facet loading test cervical area positive. Lumbar spine: Motor bulk/ tone/ strength lower extremities , thigh and legs : 5/5 Deep tendon reflexes : Normal Knee Jerk. Normal Ankle Jerk . Vertebral body tenderness to palpation over L5 Lumbar Facet Loading Test positive Straight Leg Raise: positive at 30 degrees right side/ left side Gaenslen's Test positive Sacral spine : Severe tenderness over the Sacroiliac joint: right side / left side Range of motion: Flexion of the lumbar spine <60 degrees Range of motion: Extension of the lumbar spine <20 degrees Gaenslen's Test positive Rigo test: positive right side / left side Assessment and plan: Chronic low back pain secondary to lumbar degenerative disc disease , lumbar spondylosis with facet arthropathy without myelopathy Recommendation of repeat bilateral iliolumbar ligament injection #2. Risks, benefits of procedure discussed and patient verbalized understanding. Denies anticoagulant use. Admits to a medical history of diabetes mellitus and taking Glucophage. May consider a third iliolumbar ligament injection [facility]. All patient questions answered MAPS reviewed and it was appropriate. I have spent 31 minutes on patient care today. Dr Merino was available by phone for the evaluation of this patient. The time was used to review the medical records including relevant urine studies and Prescription history (MAPs), review of the available imaging, evaluation and examination of the patient, coordination of care with the medical staff and if applicable referring physicians, as well as creation of the medical record Objective - Vital Signs Vital signs: Vital Signs Temp 98.6 F 12/26/21 11:36 Pulse 82 12/26/21 11:36 Resp 18 12/26/21 11:36 BP 124/65 12/26/21 11:36 Pulse Ox 94 L 12/26/21 11:36 Intake & Output 12/25/21 12/26/21 12/26/21 18:59 06:59 18:59 Weight 95.254 kg PQRS Measure Charge Sheet Mode of Arrival: Ambulatory, Wheelchair - Pain Location Lower Back Non-Pharmacological Interventions: Exercise, Home Exercise, Inactivity, Massage, Physical Therapy, Position/Reposition, Sitting, Stretching Pharmacological Interventions: Block, PRN Medication, Topical Medication PQRS Narrative: Smoking Status Never smoker Blood Pressure 124/65 Pain Intensity [Lower Back] 9 Scale Used Numeric (1 - 10) Hx Alcohol Use (MH) Yes Home Medications: Ambulatory Orders Atorvastatin [Lipitor] 40 mg PO HS 07/05/21 Cholecalciferol [Vitamin D3 (25 Mcg = 1000 Iu)] 50 mcg PO DAILY 07/05/21 Cyanocobalamin (Vitamin B-12) [Vitamin B-12] 500 mcg PO DAILY 07/05/21 Melatonin 5 mg PO HS 07/05/21 Ubidecarenone [Co Q-10] 100 mg PO HS 07/05/21 Valproic Acid [Depakene] 250 mg PO DAILY@1500 07/05/21 Venlafaxine HCl ER [Effexor Xr] 150 mg PO DAILY 07/05/21 hydrALAZINE HCL [Apresoline] 100 mg PO TID 07/05/21 levETIRAcetam 1,000 mg PO BID 07/05/21 Cetirizine HCl 10 mg PO HS 07/14/21 Ibuprofen 200 mg PO DIRECTED PRN 07/14/21 Valproic Acid [Depakene] 500 mg PO DAILY@0900,2100 07/14/21 Vit C/E/Zn/Coppr/Lutein/Zeaxan [Preservision Areds 2 Softgel] 1 each PO DAILY 07/14/21 metFORMIN HCL 500 mg PO PC-BID 09/12/21
== END ==
LOC: PNWHC3 10:46
PROVIDERS: ATTEND Physician Assistant Medical
DX: M51.36 Other intervertebral disc degeneration, lumbar region (principal); M47.816 Spondylosis without myelopathy or radiculopathy, lumbar region; G89.29 Other chronic pain; E11.9 Type 2 diabetes mellitus without complications; Z79.84 Long term (current) use of oral hypoglycemic drugs; Z88.2 Allergy status to sulfonamides; Z88.8 Allergy status to other drugs, medicaments and biological substances
CPT/HCPCS: 99211

== ENCOUNTER 2022-01-12 09:09 | Day surgery (SDC) | payer MEDICARE, OTHER ==
[2022-01-10 14:28] VITALS: BMI 30.1
[2022-01-12 09:37] VITALS: TEMP 97.9
[2022-01-12 09:43] LABS: Glucose,Whole Blood 203 mg/dL (75-99)
--- NOTE | 2022-01-12 09:53 | P.PCN ---
Date of Procedure: 01/12/22 Description of Procedure: Procedure: Iliolumbar injection bilateral Diagnosis: Lumbar spondylosis without myelopathy Postop diagnosis same Patient was evaluated in the preoperative area as well as in the clinic. An iliolumbar injection was recommended given his low back pain with tenderness to palpation over the lumbar paraspinal muscles. He recently had a radiofrequency ablation done. He reports that the pain is worse in the right compared to left. Procedure: Patient was brought into the room after consent was signed. Risks and benefits were explained in the preoperative tear area. The patient chose to have the procedure without any IV anesthesia. Patient was brought into the room and placed in the prone position. The back was cleansed with ChloraPrep solution. Landmarks were palpated and the area was cleansed and covered for sterility. At that point a total of 20 ML's of 0.25% ropivacaine were injected in the bilateral iliolumbar ligament. A 25-gauge 3-1/2 inch spinal needle was used and was removed intact. A Band-Aid was placed over the puncture site on either side. Patient was taken to the recovery room in stable condition. Patient will follow up in the clinic as needed moving forward. We'll follow-up in about 4 weeks to determine next best step
[2022-01-12] MEDS ORDERED: methylPREDNISolone ACETATE 40 MG/ML 1 ML VIAL ONE (09:55)
[2022-01-12] MEDS ORDERED: ROPIVACAINE 5MG/ML 20ML VIAL ONE (09:55)
[2022-01-12 10:12] VITALS: RESP 16
[2022-01-12 10:25] VITALS: BP 124/57; PULSE 75
== END 2022-01-12 10:40 | disposition home or self-care (01) ==
LOC: ORPAIN 09:09
PROVIDERS: ATTEND Hospitalist
DX: M47.816 Spondylosis without myelopathy or radiculopathy, lumbar region (principal)
CPT/HCPCS: 20550; J1030; J2795

== ENCOUNTER 2022-01-16 14:50 | Emergency (ER) | payer MEDICARE, OTHER ==
[2022-01-16 15:14] VITALS: BP 133/89; RESP 16; TEMP 97.8
[2022-01-16 15:34] VITALS: PULSE 75
--- NOTE | 2022-01-16 18:05 | XR ---
EXAMINATION TYPE: XR KUB DATE OF EXAM: 01/16/2022 5:34 PM INDICATION: Patient age:Male; 76 years old; Reason for study: no BM x5 days; COMPARISON: CT abdomen and pelvis 04/05/2015. TECHNIQUE: One radiographic view of the abdomen was obtained. FINDINGS: The bowel gas pattern is nonspecific without dilated loops of small or large bowel. There i s a moderate to large stool burden throughout the colon. There is no evidence for organomegaly or pne umoperitoneum. The osseous structures are intact with multilevel disc degeneration changes of the lo wer spine.. Nonspecific calcification in the right abdomen could represent renal calculus versus oth er. This measures up to 8 mm. Fecal material and gas are demonstrated throughout the colon and rectum . IMPRESSION: Moderate to large stool burden throughout the colon which could be seen in setting of constipation.
[2022-01-16] MEDS ORDERED: NA PHOS,M-B/NA PHOS,DI-BA 133 ML ENEMA RECTAL STA (18:10)
--- NOTE | 2022-01-16 18:38 | ED ---
General Adult HPI - General Chief complaint: Urogenital Stated complaint: constipation Time Seen by Provider: 01/16/22 16:50 Source: patient Mode of arrival: EMS - History of Present Illness Initial comments: This 76-year-old male with past medical history CVA, diabetes mellitus, hypertension and seizure disorder presents to the emergency Department with constipation 5 days. Patient states he has experienced this in the past and was able to have a bowel movement after taking MiraLAX, however he did try taking MiraLAX over the last 5 days and does not experienced any relief. Patient states last bowel movement was last Sunday, however he did pass one piece of stool today about the size of an egg. Patient states he is experiencing some abdominal discomfort but denies any abdominal pain, fever, vomiting or nausea. Patient states some lying flat he does not experience any abdominal discomfort, however when he sits up he states it does cause increased pressure in his lower abdomen. Patient states he has been passing gas as usual. Patient states he has been eating and drinking as normal. Patient states he did try a normal saline enema today without any relief. Patient denies any fever, chest pain, shortness of breath, abdominal pain, nausea, vomiting, headache, lightheadedness, change in vision, weakness. - Related Data Home Medications Medication Instructions Recorded Confirmed Atorvastatin [Lipitor] 40 mg PO HS@209907/05/21 01/16/22 Cholecalciferol [Vitamin D3 (25 50 mcg PO DAILY@89907/05/21 01/16/22 Mcg = 1000 Iu)] Melatonin 5 mg PO HS@209907/05/21 01/16/22 Ubidecarenone [Co Q-10] 100 mg PO HS@209907/05/21 01/16/22 Valproic Acid [Depakene] 250 mg PO DAILY@1500 07/05/21 01/16/22 Venlafaxine HCl ER [Effexor Xr] 150 mg PO DAILY@89907/05/21 01/16/22 hydrALAZINE HCL [Apresoline] 100 mg PO TID@0900,1500,209907/05/21 01/16/22 levETIRAcetam 1,000 mg PO BID@0900,209907/05/21 01/16/22 Cetirizine HCl 10 mg PO HS@209907/14/21 01/16/22 Valproic Acid [Depakene] 500 mg PO DAILY@0900,2100 07/14/21 01/16/22 Vit C/E/Zn/Coppr/Lutein/Zeaxan 1 cap PO DAILY@0900 07/14/21 01/16/22 [Preservision Areds 2 Softgel] metFORMIN HCL 500 mg PO BID@0900,1900 09/12/21 01/16/22 Cyanocobalamin [Vitamin B-12] 500 mcg PO DAILY@0900 01/16/22 01/16/22 Previous Rx's Medication Instructions Recorded Docusate [Colace] 100 mg PO BID #10 capsule 01/16/22 Allergies Allergy/AdvReac Type Severity Reaction Status Date / Time nitroglycerin AdvReac Severe severe Verified 01/16/22 18:07 [From Nitro-Bid] headaches. Sulfa (Sulfonamide AdvReac Severe severe Verified 01/16/22 18:07 Antibiotics) headaches Review of Systems ROS Statement: Those systems with pertinent positive or pertinent negative responses have been documented in the HPI. ROS Other: All systems not noted in ROS Statement are negative. Past Medical History Past Medical History: CVA/TIA, Diabetes Mellitus, Hypertension, Seizure Disorder Additional Past Medical History / Comment(s): HX TRIPPED & HIT HIS HEAD APRIL 2020 HAD INTRACRAINIAL SUBDURAL HEMATOMA AND DELAYED SURGERY-(dizziness developed 12 days later, surgery delayed then due to being on blood thinner). HX OF SEIZURES AFTER HEAD INJURY-(LAST SEIZURE 05/2020). STATES HANDS SHAKE. BOTH LEG SHAKES, balance problems, WEAKNESS RUBEN LEGS. PAIN LOWER BACK FOR OVER 1 YEAR-PAIN WITH WALKING . History of Any Multi-Drug Resistant Organisms: None Reported Past Surgical History: Appendectomy, Orthopedic Surgery Additional Past Surgical History / Comment(s): Hand surgery, arthroscopy surgery (rt knee x 2, left x 3). SURGERY FOR INTRACRANIAL SUBDURAL HEMATOMA (MAY 2020). Pain Clinic Procedure, ruben cataracts Past Anesthesia/Blood Transfusion Reactions: No Reported Reaction Past Psychological History: Depression Smoking Status: Never smoker - Past Family History Mother Family Medical History: No Reported History General Exam General appearance: alert, in no apparent distress Head exam: Present: atraumatic, normocephalic, normal inspection Eye exam: Present: normal appearance, PERRL, EOMI. Absent: scleral icterus, conjunctival injection, periorbital swelling Pupils: Present: normal accommodation ENT exam: Present: normal exam, mucous membranes moist Neck exam: Present: normal inspection, full ROM. Absent: tenderness, meningismus, lymphadenopathy Respiratory exam: Present: normal lung sounds bilaterally. Absent: respiratory distress, wheezes, rales, rhonchi, stridor Cardiovascular Exam: Present: regular rate, normal rhythm, normal heart sounds. Absent: systolic murmur, diastolic murmur, rubs, gallop, clicks GI/Abdominal exam: Present: soft, normal bowel sounds, other (Diffuse discomfort to deep palpation in all 4 quadrants. No pain or tenderness to palpation). Absent: distended, tenderness, guarding, rebound, rigid Extremities exam: Present: normal inspection, full ROM, normal capillary refill. Absent: tenderness, pedal edema, joint swelling, calf tenderness Back exam: Present: normal inspection, full ROM. Absent: CVA tenderness (R), CVA tenderness (L), paraspinal tenderness, vertebral tenderness Neurological exam: Present: alert, oriented X3, CN II-XII intact Psychiatric exam: Present: normal affect, normal mood Skin exam: Present: warm, dry, intact, normal color. Absent: rash Course Vital Signs 01/16/22 01/16/22 15:02 15:34 Temperature 97.8 F Pulse Rate 75 Respiratory 16 Rate Blood Pressure 133/89 O2 Sat by Pulse 97 Oximetry Medical Decision Making - Medical Decision Making This 76-year-old male presents emergency Department with constipation and no bowel movement 5 days. Patient denying any other symptoms. X-ray KUB impression: Moderate to large stool burden throughout the colon which could be seen in setting of constipation. Bowel gas pattern is nonspecific without dilated loops of small bowel or large bowel. No evidence for organomegaly or pneumoperitoneum. Osseous structures are intact with multi-level disc degeneration changes of the lower spine. Nonspecific calcification of the right abdomen could represent renal calculus versus other. This measures up to 8 mm. Fecal material and gas demonstrated throughout the colon and rectum. CT abdomen and pelvis without contrast impression large stool present throughout the colon with small bowel feces, correlate for adynamic ileus. Nonobstructing bilateral renal calculi. Patient was requesting discharged and did receive a soapsuds enema after computed tomography scan and did have a large bowel movement. Fleet enema administered to patient first, prior to CT. He did receive some relief and did pass a small amount of stool. Soapsuds enema administered to patient after CT and he was able to pass a large amount of stool and stated he felt significant instant relief. Patient sent home with magnesium citrate and docusate. Patient was instructed to drink half bottle of magnesium citrate if he still feels stool buildup over the next couple of days and if he does not experience any bowel movement after 6 hours to drink other half of magnesium citrate. 10 pills of docusate were prescribed and patient was instructed to use as needed no more than 2 times a day for 5 days in a row. Patient instructed to hold MiraLAX while using magnesium citrate. Prior to discharge patient understood plan and verbally agreed to plan. Patient was requesting discharge and stated he would return if any of his symptoms returned or if any new or worsening symptoms arose. Instructed patient to follow up with his primary care provider in next 1-2 days. Strict return precautions were discussed. Patient verbally agreed to plan. Patient sent home in stable condition. Case discussed in detail with my attending, Dr. Khan. Disposition Clinical Impression: Constipation Disposition: HOME SELF-CARE Condition: Stable Instructions (If sedation given, give patient instructions): Constipation (ED) Additional Instructions: Take magnesium citrate by drinking half of the bottle tomorrow morning. If you do not experience any bowel movement after 6 hours of drinking half of the bottle, drink second-half. Start docusate tomorrow and use daily 5 days. Can use twice a day if needed. Do not use docusate for more than 5 days. Hold MiraLAX tomorrow if you do end up using magnesium citrate. Resume MiraLAX on Sunday. Follow-up with your primary care provider in next 1-2 days. Return to the emergency department if symptoms return or if any new, worsening or concerning symptoms arise. Prescriptions: Docusate [Colace] 100 mg PO BID #10 capsule Is patient prescribed a controlled substance at d/c from ED?: No Referrals: Aurora Nichols MD [Primary Care Provider] - 1-2 days Time of Disposition: 20:49
[2022-01-16] MEDS ORDERED: ONDANSETRON 4 MG TAB PO STA (18:58)
[2022-01-16] MEDS ORDERED: MAGNESIUM CITRATE 296 ML BOTTLE PO ONE (20:28)
--- NOTE | 2022-01-16 20:39 | CT ---
EXAMINATION TYPE: CT abdomen pelvis wo con CT DLP: 1133.4 mGycm, Automated exposure control for dose reduction was used. DATE OF EXAM: 01/16/2022 8:21 PM COMPARISON: MR abdomen pelvis most recent from 05/05/2015. CLINICAL INDICATION:Male, 76 years old with history of stone rt side x ray; RENAL STONE TECHNIQUE: Standard CT of the abdomen and pelvis without IV or oral contrast. Lack of IV or oral co ntrast limits evaluation of solid and hollow organ viscera. Coronal and sagittal reformats were perfo rmed. FINDINGS: LOWER CHEST: Posterior streaky atelectasis/scarring is noted. ABDOMEN LIVER: Unremarkable GALLBLADDER AND BILE DUCTS: Unremarkable. PANCREAS: Unremarkable. SPLEEN: Unremarkable. ADRENAL GLANDS: Unremarkable. KIDNEYS AND URETERS: No evidence of hydronephrosis. Bilateral nonobstructing calculi measuring up to 9 mm on the right and 3 mm on the left. Bilateral renal cysts measuring up to 32 mm on the right and 26 mm on the left. PELVIS BLADDER: Unremarkable REPRODUCTIVE: Unremarkable. ABDOMEN & PELVIS STOMACH AND BOWEL: Large stool burden throughout the colon. Small bowel feces sign seen throughout mu ltiple loops of small bowel. No evidence of bowel obstruction. PERITONEUM: No evidence of pneumoperitoneum or free fluid. VASCULATURE: No evidence of aortic aneurysm. Scattered atherosclerosis of the arterial vasculature. MUSCULOSKELETAL: No acute osseous abnormalities. Multilevel disc degeneration changes throughout the spine worse at L4-L5 with disc bulging. LYMPH NODES: No gross evidence for lymphadenopathy. SOFT TISSUE/ABDOMINAL WALL: Unremarkable IMPRESSION: 1. Large stool burden throughout the colon with small bowel feces, correlate for adynamic ileus. 2. Nonobstructing bilateral renal calculi.
== END 2022-01-16 21:10 | disposition home or self-care (01) ==
LOC: EC 14:50
DX: K59.00 Constipation, unspecified (principal); E11.9 Type 2 diabetes mellitus without complications; I10 Essential (primary) hypertension; F32.A Depression, unspecified; Z79.84 Long term (current) use of oral hypoglycemic drugs; Z88.2 Allergy status to sulfonamides; Z86.73 Personal history of transient ischemic attack (TIA), and cerebral infarction without residual deficits; Z90.49 Acquired absence of other specified parts of digestive tract
CPT/HCPCS: 74018; 74176; 99284

== ENCOUNTER → 2022-02-09 | Outpatient (CLI) | payer MEDICARE, OTHER ==
[2022-02-09 14:06] VITALS: BP 119/62; PULSE 77; RESP 18
--- NOTE | 2022-02-09 14:37 | P.PN ---
Subjective Progress Note Date: 02/09/22 Principal diagnosis: A 76 yr old wheelchair bound male with at side with a history of severe and chronic low back pain secondary to lumbar degenerative disc diseases and lumbar spondylosis with facet arthropathy presents today for evaluation status post second bilateral iliolumbar ligament injection. He states he experienced 0% pain relief status post procedure. Pain level is 2 out of 10 in intensity in the lower aspects of the lumbar spine while sitting, dull, achy in character but escalates as high as 10 out of 10 in intensity when standing and walking. Pain is alleviated with medications, topicals which provided no relief, injections which provided little to no relief, physical therapy in March 2021, chiropractic treatments in June 2021 integrated with massage that provided no relief, use of a wheelchair for ambulation, sitting and inactivity. Interventional pain procedures completed include bilateral RFA L3-L5. Bilateral iliolumbar ligament injection 2 Patient is currently on Motrin OTC Patient denies any side effects of the medication(s), denies excessive drowsiness or sleepiness, denies suicidal ideation and reports that the current pain medication is helping to control the pain and improve activities of daily living. Patient denies any motor or sensory deficits. Patient denies any fever or night sweats, denies any change in the bowel movements or urination. Physical Examination: -Constitutional: Cooperative. Not in acute distress . -HEENT: Neck is supple. No lymphadenopathy. No thyromegaly. Normal thyroid size. Eyes: No ptosis , no icterus, no photophobia. ENT: No auditory deficits. Normal oropharynx. No Thrush. - Respiratory: Chest clear to auscultations bilaterally. No wheezing. No rhonchi. - Cardiovascular: Regular rate and rhythm. S1 / S2 , no S3 , no S4. - Gastrointestinal: Abdomen soft no tenderness. Bowel sounds positive in all four quadrants. No organomegaly. - Genitourinary: Deferred. - Neurologic: Cranial nerve II to XII intact. No focal neurological defici ts. - Psychatric: Alert & oriented x 3. Matching mood & appropriate affect. Judgment and insight intact. - Lymphatic: No Lymphadenopathy. - Musculoskeletal: Cervical spine: Muscle bulk/ tone/ strength in the bilateral upper extremities normal. Facet loading test cervical area positive. Lumbar spine: Motor bulk/ tone/ strength lower extremities , thigh and legs : 5/5 Deep tendon reflexes : Normal Knee Jerk. Normal Ankle Jerk . Vertebral body tenderness to palpation over L3, L4, L5 Lumbar Facet Loading Test positive Straight Leg Raise: positive at 30 degrees right side/ left side Gaenslen's Test positive Sacral spine : Severe tenderness over the Sacroiliac joint: right side / left side Range of motion: Flexion of the lumbar spine <60 degrees Range of motion: Extension of the lumbar spine <20 degrees Gaenslen's Test positive Rigo test: positive right side / left side Assessment and plan: Chronic low back pain secondary to lumbar degenerative disc disease , lumbar spondylosis with facet arthropathy without myelopathy We have very few options left to manage pain. Advised pt and at side to return to Dr Hdz to explore additional treatment options, including orthopedic surgery, if the patient is a surgical candidate, MARCELLA as the patient stated he's had success with many minimally invasive procedures throughout his joints & spine at [facility] in the past, and a possible implantable neurostimulator device. Pt and are also considering utilizing a non implantable device worn on the lumbar spine they know about from the internet to manage pain. All patient questions answered I have spent 31 minutes on patient care today. Dr Merino was available by phone for the evaluation of this patient. The time was used to review the medical records including relevant urine studies and Prescription history (MAPs), review of the available imaging, evaluation and examination of the patient, coordination of care with the medical staff and if applicable referring physicians, as well as creation of the medical record Objective - Vital Signs Vital signs: Vital Signs Temp Pulse 77 02/09/22 14:01 Resp 18 02/09/22 14:01 BP 119/62 02/09/22 14:01 Pulse Ox 94 L 02/09/22 14:01 Intake & Output 02/08/22 02/09/22 02/09/22 18:59 06:59 18:59 Weight 95.254 kg PQRS Measure Charge Sheet Mode of Arrival: Ambulatory - Pain Location Lower Back Non-Pharmacological Interventions: Chiropractic Treatment, Home Exercise, Massage, Physical Therapy, Position/Reposition, Sitting, Stretching Pharmacological Interventions: Block, PRN Medication, Topical Medication PQRS Narrative: Smoking Status Never smoker Blood Pressure 119/62 Pain Intensity [Lower Back] 2 Scale Used Numeric (1 - 10) Hx Alcohol Use (MH) No Home Medications: Ambulatory Orders Atorvastatin [Lipitor] 40 mg PO HS@209907/05/21 Cholecalciferol [Vitamin D3 (25 Mcg = 1000 Iu)] 50 mcg PO DAILY@89907/05/21 Melatonin 5 mg PO HS@209907/05/21 Ubidecarenone [Co Q-10] 100 mg PO HS@209907/05/21 Valproic Acid [Depakene] 250 mg PO DAILY@1500 07/05/21 Venlafaxine HCl ER [Effexor Xr] 100 mg PO DAILY@89907/05/21 hydrALAZINE HCL [Apresoline] 100 mg PO TID@0900,1500,209907/05/21 levETIRAcetam 1,000 mg PO BID@899,209907/05/21 Cetirizine HCl 10 mg PO HS@209907/14/21 Valproic Acid [Depakene] 500 mg PO DAILY@899,209907/14/21 Vit C/E/Zn/Coppr/Lutein/Zeaxan [Preservision Areds 2 Softgel] 1 cap PO DAILY@89907/14/21 metFORMIN HCL 500 mg PO BID@0900,1900 09/12/21 Cyanocobalamin [Vitamin B-12] 500 mcg PO DAILY@0900 01/16/22 Docusate [Colace] 100 mg PO BID PRN 02/08/22 L.acidoph,Paracasei, B.lactis [Probiotic] 1 each PO HS 02/08/22
== END ==
LOC: PNWHC3 13:14
PROVIDERS: ATTEND Specialist
DX: M51.36 Other intervertebral disc degeneration, lumbar region (principal); M47.816 Spondylosis without myelopathy or radiculopathy, lumbar region; G89.29 Other chronic pain; Z88.2 Allergy status to sulfonamides; Z88.8 Allergy status to other drugs, medicaments and biological substances
CPT/HCPCS: 99211

== ENCOUNTER → 2022-03-30 | Outpatient (CLI) | payer MEDICARE, OTHER ==
[2022-03-30 14:38] VITALS: BP 109/67; PULSE 88; RESP 18; TEMP 98
--- NOTE | 2022-03-30 14:52 | P.PAINPG ---
Objective - Vital Signs Vital signs: Vital Signs Temp 98 F 03/30/22 14:25 Pulse 88 03/30/22 14:25 Resp 18 03/30/22 14:25 BP 109/67 03/30/22 14:25 Pulse Ox 94 L 03/30/22 14:25 FiO2 PQRS Measure Charge Sheet Mode of Arrival: Wheelchair Comment: A 76 yr old wheelchair bound male with at side with a history of severe and chronic low back pain secondary to lumbar degenerative disc diseases and lumbar spondylosis with facet arthropathy presents today for evaluation status post BL iliolumbar ligament injection #2. He states he experienced 0% pain relief s/p procedure. Pain level is currently at 0/10 while sitting but 10/10 in intensity when standing for periods of 15 seconds or more. Pain is dull/ achy in the lower aspects of his lumbar spine with sharp/ shooting pain towards the LEs. Pain is provoked by weight bearing activities. Pain is alleviated with dictations, topicals, ejection, physical therapy integrated with occupational therapy in 2019, chiropractic she was in 2019 which provided no relief, daily home stretching regimen, use of a wheelchair and walker for ambulation, massage therapy integrated with physical therapy, repositioning and rest. Interventional pain procedures completed include BL RFA L3-L5, BL iliolumbar 2. Patient is currently on Motrin OTC, Aspercreme topical. Patient denies any side effects of the medication(s), denies excessive drowsiness or sleepiness, denies suicidal ideation and reports that the current pain medication is helping to control the pain and improve activities of daily living. Patient denies any motor or sensory deficits. Patient denies any fever or night sweats, denies any change in the bowel movements or urination. Physical Examination: -Constitutional: Cooperative. Not in acute distress . -HEENT: Neck is supple. No lymphadenopathy. No thyromegaly. Normal thyroid size. Eyes: No ptosis , no icterus, no photophobia. ENT: No auditory deficits. Normal oropharynx. No Thrush. - Respiratory: Chest clear to auscultations bilaterally. No wheezing. No rhonchi. - Cardiovascular: Regular rate and rhythm. S1 / S2 , no S3 , no S4. - Gastrointestinal: Abdomen soft no tenderness. Bowel sounds positive in all four quadrants. No organomegaly. - Genitourinary: Deferred. - Neurologic: Cranial nerve II to XII intact. No focal neurological deficits. - Psychatric: Alert & oriented x 3. Matching mood & appropriate affect. Judgment and insight intact. - Lymphatic: No Lymphadenopathy. - Musculoskeletal: Cervical spine: Muscle bulk/ tone/ strength in the bilateral upper extremities normal Vertebral body tenderness to palpation over Facet loading test positive Thoracic spine Muscle bulk / tone/ strength in the bilateral paraspinal muscles normal Vertebral body tender to palpation over Facet loading test positive Lumbar spine: Motor bulk/ tone/ strength lower extremities , thigh and legs : 5/5 Deep tendon reflexes : Normal Knee Jerk. Normal Ankle Jerk . Vertebral body tenderness to palpation over L5 Lumbar Facet Loading Test positive Straight Leg Raise: positive at 30 degrees right side/ left side Gaenslen's Test positive Sacral spine : Severe tenderness over the Sacroiliac joint: right side / left side Range of motion: Flexion of the lumbar spine <60 degrees Range of motion: Extension of the lumbar spine <20 degrees Gaenslen's Test positive Raymond's Test positive Rigo test: positive right side / left side Thigh Thrust Test Sacral Thrust Test Assessment and plan: Chronic low back pain secondary to lumbar degenerative disc disease , lumbar spondylosis with facet arthropathy without myelopathy Recommendation of LESI L5-S1. May need a series of injections, up to 3 within a six-month timeframe, for optimal pain relief. Risks, benefits of procedure discussed and pt verbalized understanding. Denies anticoagulant use or medical history of diabetes. All patient questions answered MAPS reviewed and it was appropriate. I have spent 31 minutes on patient care today. Dr Merino was available by phone for the evaluation of this patient. The time was used to review the medical records including relevant urine studies and Prescription history (MAPs), review of the available imaging, evaluation and examination of the patient, coordination of care with the medical staff and if applicable referring physicians, as well as creation of the medical record - Pain Location Lower Back Non-Pharmacological Interventions: Chiropractic Treatment, Home Exercise, Inac tivity, Massage, Physical Therapy, Position/Reposition, Sitting, Stretching Pharmacological Interventions: Block, PRN Medication, Topical Medication PQRS Narrative: Smoking Status Never smoker Blood Pressure 109/67 Pain Intensity [Lower Back] 10 Scale Used Numeric (1 - 10) Hx Alcohol Use (MH) Yes Home Medications: Ambulatory Orders Atorvastatin [Lipitor] 40 mg PO HS@2100 21/21 Cholecalciferol [Vitamin D3 (25 Mcg = 1000 Iu)] 50 mcg PO DAILY@89907/05/21 Melatonin 5 mg PO HS@209907/05/21 Ubidecarenone [Co Q-10] 100 mg PO HS@209907/05/21 Valproic Acid [Depakene] 250 mg PO DAILY@1500 07/05/21 Venlafaxine HCl ER [Effexor Xr] 100 mg PO DAILY@89907/05/21 hydrALAZINE HCL [Apresoline] 100 mg PO TID@899,1499,209907/05/21 levETIRAcetam 1,000 mg PO BID@899,209907/05/21 Cetirizine HCl 10 mg PO HS@209907/14/21 Valproic Acid [Depakene] 500 mg PO DAILY@899,209907/14/21 Vit C/E/Zn/Coppr/Lutein/Zeaxan [Preservision Areds 2 Softgel] 1 cap PO DAILY@89907/14/21 metFORMIN HCL 500 mg PO BID@0900,1900 09/12/21 Cyanocobalamin [Vitamin B-12] 500 mcg PO DAILY@0901/16/22 Docusate [Colace] 100 mg PO BID PRN 02/08/22 L.acidoph,Paracasei, B.lactis [Probiotic] 1 each PO HS 02/08/22 Controlled Substance Measures - Controlled Substance Measures Is patient prescribed a controlled substance at discharge?: No
== END ==
LOC: PNWHC3 13:42
PROVIDERS: ATTEND Specialist
DX: M51.36 Other intervertebral disc degeneration, lumbar region (principal); M47.816 Spondylosis without myelopathy or radiculopathy, lumbar region; G89.29 Other chronic pain; Z88.2 Allergy status to sulfonamides; Z88.8 Allergy status to other drugs, medicaments and biological substances
CPT/HCPCS: 99211

== ENCOUNTER 2022-04-06 08:16 | Day surgery (SDC) | payer MEDICARE, OTHER ==
[2022-04-06 08:58] VITALS: RESP 16; TEMP 97.5
[2022-04-06] MEDS ORDERED: LACTATED RINGERS 1,000 ML IV ONE ×2 (08:58)
[2022-04-06] MEDS ORDERED: INSULIN ASPART (NovoLOG) 100 UNIT/ML VIAL SQ ONE (09:07)
[2022-04-06] MEDS ORDERED: fentaNYL (PF) 50 MCG/ML 2 ML AMP ONE (09:08)
[2022-04-06] MEDS ORDERED: MIDAZOLAM 2 MG/2 ML VIAL ONE (09:08)
[2022-04-06] MEDS ORDERED: methylPREDNISolone ACETATE 40 MG/ML 1 ML VIAL ONE (09:08)
[2022-04-06] MEDS ORDERED: IOPAMIDOL M200 10 ML VIAL ONE (09:08)
[2022-04-06 09:12] LABS: Glucose,Whole Blood 205 mg/dL (70-110)
--- NOTE | 2022-04-06 09:23 | P.PCN ---
Date of Procedure: 04/06/22 Procedure(s) Performed: PREOPERATIVE DIAGNOSIS: 1- Lumbar Degenerative Disc Diseases 2-Lumbar spondylosis with Facet arthropathy without myelopathy POSTOPERATIVE DIAGNOSIS: Same as preop diagnosis. PROCEDURE 1. Lumbar epidural steroid injection under fluoroscopic guidance at the L5-S1 level. (Fluoroscopy imaging was available in radiology department) 2. Lumbar epidurogram. ANESTHESIA: Local with 1% lidocaine 3 ml and , moderate sedation with intravenous Versed 1 mg ,and fentanyle 50 Mcg EBL: Minimal PROCEDURE INDICATION: The patient with low back pain and radiculitis symptoms unresponsive to conservative treatment. Fluoroscopy was used to optimize visualization of the needle placement and to maximize safety. PROCEDURE DESCRIPTION / TECHNIQUE: The patient was seen and identified in the preoperative area. Risks, benefits, complications including but not limited to infections ,bleeding ,allergic reaction to the medications ,nerve damage and not complete pain releife , and alternatives were discussed with the patient. The patient agreed to proceed with the procedure and signed the consent. IV was started, and vital signs were stable. Patient was taken to the OR and time out was completed. The patient was placed in the prone position on procedure table and a pillow was placed under the abdomen to reduce lumbar lordosis. The lumbosacral area was prepped and draped in the usual sterile fashion.ere closely monitored during the procedure. Con scious sedation was used during the procedure to decrease patients anxiety. Vital signs was monitered during the entire procedure. Using anterior-posterior fluoroscopy, the L5-S1 interlaminar space was identified and the skin over this site was marked and then infiltrated with 1% lidocaine subcutaneously. Subsequently, a 20-gauge Tuohy epidural needle was inserted and advanced toward the epidural space using the ``Loss of resistance technique and guided by AP and lateral fluoroscopy. The correct needle position in the epidural space was verified with the injection of 2 mL of the water soluble contrast dye Isovue 200 contrast and observing an excellent epidurogram with the epidural spread of the dye, after negative aspiration for blood and CSF and in the absence of paresthesias. Again after negative aspiration, a 6 ml mixture containing 40 mg of Depo-medrol , and 2 ml of preservative free Normal Saline, and 2 ml of preservative free lidocaine 1% solution was injected and a washout of epidurogram was seen. Needle was withdrawn intact, skin was cleansed, and bandages were applied. COMPLICATIONS: None DISPOSITION / PLANS: The patient was placed in a supine position and transferred to the recovery area in a stable condition for observation. There was no evidence of lower extremity motor or sensory deficit after the procedure. Patient was discharged from the recovery room after meeting discharge criteria. Home discharge instructions were given to the patient by the staff. The patient was reexamined prior to discharge. The patient will schedule a follow up in the clinic in 2-4 weeks.
[2022-04-06] MEDS ORDERED: IV FLUID CONTINUATION 1,000 ML IV ONE ×2 (09:28)
[2022-04-06 09:31] VITALS: BP 111/72
[2022-04-06 09:48] VITALS: PULSE 76
[2022-04-06 10:09] LABS: Glucose,Whole Blood 233 mg/dL (70-110)
--- NOTE | 2022-04-06 20:39 | FL ---
EXAMINATION TYPE: FL guided pain mgmt statistic DATE OF EXAM: 04/06/2022 CLINICAL HISTORY: Lumbar epidural injection TECHNIQUE: Fluoroscopic-guided procedure. FINDINGS: Fluoroscopic guidance was provided during the procedure. A total of 1 second of fluoroscop ic time was utilized during the procedure and 1 spot image was acquired. IMPRESSION: As Above.
== END 2022-04-06 10:27 | disposition home or self-care (01) ==
LOC: ORPAIN 08:16
PROVIDERS: ATTEND Specialist
DX: M51.16 Intervertebral disc disorders with radiculopathy, lumbar region (principal); M47.26 Other spondylosis with radiculopathy, lumbar region; Z88.2 Allergy status to sulfonamides
CPT/HCPCS: 62323; J2250; J1030; J3010; Q9966; 99152

== ENCOUNTER → 2022-04-20 | Outpatient (CLI) | payer MEDICARE, OTHER ==
[2022-04-20 14:10] VITALS: BP 115/69; PULSE 97; RESP 18
--- NOTE | 2022-04-20 14:24 | P.PAINPG ---
Objective - Vital Signs Vital signs: Vital Signs Temp Pulse 97 04/20/22 13:48 Resp 18 04/20/22 13:48 BP 115/69 04/20/22 13:48 Pulse Ox 95 04/20/22 13:48 FiO2 PQRS Measure Charge Sheet Mode of Arrival: Ambulatory, Walker Comment: A 76 yr old male w at side with a history of severe and chronic low back pain secondary to lumbar degenerative disc diseases and lumbar spondylosis with facet arthropathy presents today for LESI L5-S1. Pt states he experienced 80% pain relief s/p procedure and still currently having pain relief. Pain level is currently at 0/10 in intensity but escalates as high as 5/10, intermittent, achy/sore with overactivity. Pain is provoked by overexertion. Pt is more mobile now. Pain is alleviated with medications, PT in 2020, chiropractic teratments w massage therapy 1 yr ago, home exercise regimen, repositioning and rest. Interventional pain procedures completed include LESI L4-L5 x 2, LESI L5-S1. Patient is currently on Motrin OTC, Aspercreme Patient denies any side effects of the medication(s), denies excessive drowsiness or sleepiness, denies suicidal ideation and reports that the current pain medication is helping to control the pain and improve activities of daily living. Patient denies any motor or sensory deficits. Patient denies any fever or night sweats, denies any change in the bowel movements or urination. Physical Examination: -Constitutional: Cooperative. Not in acute distress . - Neurologic: Cranial nerve II to XII intact. No focal neurological deficits. - Psychatric: Alert & oriented x 3. Matching mood & appropriate affect. Judgment and insight intact. - Musculoskeletal: Cervical spine: Muscle bulk/ tone/ strength in the bilateral upper extremities normal Vertebral body tenderness to palpation over Spurling test positive Distraction test positive Facet loading test positive Thoracic spine Muscle bulk / tone/ strength in the bilateral paraspinal muscles normal Vertebral body tender to palpation over Facet loading test positive Lumbar spine: Motor bulk/ tone/ strength lower extremities , thigh and legs : 5/5 Deep tendon reflexes : Normal Knee Jerk. Normal Ankle Jerk . Vertebral body tenderness to palpation over L5 w deep palpation Lumbar Facet Loading Test positive Straight Leg Raise: positive at 30 degrees right side/ left side Gaenslen's Test positive Sacral spine : Severe tenderness over the Sacroiliac joint: right side / left side Range of motion: Flexion of the lumbar spine <60 degrees Range of motion: Extension of the lumbar spine <20 degrees Gaenslen's Test positive Raymond's Test positive Rigo test: positive right side / left side Thigh Thrust Test Sacral Thrust Test Assessment and plan: Chronic low back pain secondary to lumbar degenerative disc disease , lumbar spondylosis with facet arthropathy without myelopathy Recommendation of LESI L5-S1 #2. May need a series of injections, up to 3 within a 6 mo period, for optimal pain relief. Risks, benefits of procedure discussed and pt verbalized understanding. Denies anticoagulant use. Admits to a medical history of diabetes. Protocol for discontinuation/ continuation of medications dereck procedure discussed. Filled Diclofenac gel 3% QID prn pain disp 100g w 1 refill Use side effects and interactions discussed and pt/ at side verbalized understanding. All patient questions answered MAPS reviewed and it was appropriate. I have spent less than 30 minutes on patient care today. Dr Merino was available by phone for the evaluation of this patient. The time was used to review the medical records including relevant urine studies and Prescription history (MAPs), review of the available imaging, evaluation and examination of the patient, coordination of care with the medical staff and if applicable referring physicians, as well as creation of the medical record - Pain Location Lower Back Non-Pharmacological Interventions: Chiropractic Treatment, Home Exercise, Inactivity, Massage, Physical Therapy, Position/Reposition, Sitting, Stretching Pharmacological Interventions: Block, Epidural, PRN Medication, Topical Medication PQRS Narrative: Smoking Status Never smoker Blood Pressure 115/69 Pain Intensity [Lower Back] 0 Scale Used Numeric (1 - 10) Hx Alcohol Use (MH) Yes Home Medications: Ambulatory Orders Atorvastatin [Lipitor] 40 mg PO HS@209907/05/21 Cholecalciferol [Vitamin D3 (25 Mcg = 1000 Iu)] 50 mcg PO DAILY@89907/05/21 Melatonin 5 mg PO HS@209907/05/21 Ubidecarenone [Co Q-10] 100 mg PO HS@209907/05/21 Valproic Acid [Depakene] 250 mg PO DAILY@149907/05/21 Venlafaxine HCl ER [Effexor Xr] 100 mg PO DAILY@89907/05/21 hydrALAZINE HCL [Apresoline] 100 mg PO TID@0900,1500,209907/05/21 levETIRAcetam 1,000 mg PO BID@0900,209907/05/21 Cetirizine HCl 10 mg PO HS@209907/14/21 Valproic Acid [Depakene] 500 mg PO DAILY@0900,209907/14/21 Vit C/E/Zn/Coppr/Lutein/Zeaxan [Preservision Areds 2 Softgel] 1 cap PO DAILY@0907/14/21 metFORMIN HCL 500 mg PO BID@0900,1900 09/12/21 Cyanocobalamin [Vitamin B-12] 500 mcg PO DAILY@0900 01/16/22 Docusate [Colace] 100 mg PO BID PRN 02/08/22 L.acidoph,Paracasei, B.lactis [Probiotic] 1 each PO HS 02/08/22 Controlled Substance Measures - Controlled Substance Measures Is patient prescribed a controlled substance at discharge?: No
== END ==
LOC: PNWHC3 13:43
PROVIDERS: ATTEND Specialist
DX: M51.36 Other intervertebral disc degeneration, lumbar region (principal); M47.816 Spondylosis without myelopathy or radiculopathy, lumbar region; G89.29 Other chronic pain; E11.9 Type 2 diabetes mellitus without complications; Z79.84 Long term (current) use of oral hypoglycemic drugs; Z88.1 Allergy status to other antibiotic agents; Z88.2 Allergy status to sulfonamides
CPT/HCPCS: 99211

== ENCOUNTER 2022-05-11 12:19 | Day surgery (SDC) | payer MEDICARE, OTHER ==
[2022-05-10 09:40] VITALS: BMI 31.8
[~2022-05-11 12:19] MED LIST changes: +LIDOCAINE 1% (10MG/ML) FOR IV START INTRADERMA PRN
[2022-05-11 12:54] VITALS: RESP 18; TEMP 98.6
[2022-05-11 13:06] LABS: Glucose,Whole Blood 149 mg/dL (70-110)
[2022-05-11] MEDS ORDERED: MIDAZOLAM 2 MG/2 ML VIAL ONE (13:29)
[2022-05-11] MEDS ORDERED: IOPAMIDOL M200 10 ML VIAL ONE (13:29)
[2022-05-11] MEDS ORDERED: fentaNYL (PF) 50 MCG/ML 2 ML AMP ONE (13:29)
[2022-05-11] MEDS ORDERED: methylPREDNISolone ACETATE 40 MG/ML 1 ML VIAL ONE (13:29)
--- NOTE | 2022-05-11 13:39 | P.PCN ---
Date of Procedure: 05/11/22 Procedure(s) Performed: PREOPERATIVE DIAGNOSIS: 1- Lumbar Degenerative Disc Diseases 2-Lumbar spondylosis with Facet arthropathy without myelopathy POSTOPERATIVE DIAGNOSIS: Same as preop diagnosis. PROCEDURE 1. Lumbar epidural steroid injection under fluoroscopic guidance at the L5-S1 level. (Fluoroscopy imaging was available in radiology department) 2. Lumbar epidurogram. ANESTHESIA: moderate sedation with intravenous Versed 1 mg ,and fentanyle 50 Mcg Sedation start time 1332. Sedation start time 1336 EBL: Minimal PROCEDURE INDICATION: The patient with low back pain and radiculitis symptoms un responsive to conservative treatment. Fluoroscopy was used to optimize visualization of the needle placement and to maximize safety. PROCEDURE DESCRIPTION / TECHNIQUE: The patient was seen and identified in the preoperative area. Risks, benefits, complications including but not limited to infections ,bleeding ,allergic reaction to the medications ,nerve damage and not complete pain releife , and alternatives were discussed with the patient. The patient agreed to proceed with the procedure and signed the consent. IV was started, and vital signs were stable. Patient was taken to the OR and time out was completed. The patient was placed in the prone position on procedure table and a pillow was placed under the abdomen to reduce lumbar lordosis. The lumbosacral area was prepped and draped in the usual sterile fashion.ere closely monitored during the procedure. Conscious sedation was used during the procedure to decrease patients anxiety. Vital signs was monitered during the entire procedure. Using anterior-posterior fluoroscopy, the L5-S1 interlaminar space was identified and the skin over this site was marked and then infiltrated with 1% lidocaine subcutaneously. Subsequently, a 20-gauge Tuohy epidural needle was inserted and advanced toward the epidural space using the ``Loss of resistance technique and guided by AP and lateral fluoroscopy. The correct needle position in the epidural space was verified with the injection of 2 mL of the water soluble contrast dye Isovue 200 contrast and observing an excellent epidurogram with the epidural spread of the dye, after negative aspiration for blood and CSF and in the absence of paresthesias. Again after negative aspiration, a 6 ml mixture containing 40 mg of Depo-medrol , and 2 ml of preservative free Normal Saline, and 2 ml of preservative free lidocaine 1% solution was injected and a washout of epidurogram was seen. Needle was withdrawn intact, skin was cleansed, and bandages were applied. COMPLICATIONS: None DISPOSITION / PLANS: The patient was placed in a supine position and transferred to the recovery area in a stable condition for observation. There was no evidence of lower extremity motor or sensory deficit after the procedure. Patient was discharged from the recovery room after meeting discharge criteria. Home discharge instructions were given to the patient by the staff. The patient was reexamined prior to discharge. The patient will schedule a follow up in the clinic in 2-4 weeks.
[2022-05-11] MEDS ORDERED: IV FLUID CONTINUATION 1,000 ML IV ONE ×2 (13:44)
--- NOTE | 2022-05-11 13:46 | FL ---
Fluoroscopy INDICATION: Pain FINDINGS: Fluoroscopy time: 1 seconds. Images obtained: 2. IMPRESSIONS: 1. Documentation of fluoroscopy.
[2022-05-11 14:21] VITALS: BP 118/75; PULSE 70
== END 2022-05-11 14:29 | disposition home or self-care (01) ==
LOC: ORPAIN 12:19
PROVIDERS: ATTEND Specialist
DX: M51.16 Intervertebral disc disorders with radiculopathy, lumbar region (principal); M47.26 Other spondylosis with radiculopathy, lumbar region
CPT/HCPCS: 62323; J2250; J1030; J3010; Q9966

== ENCOUNTER → 2022-05-31 | Outpatient (CLI) | payer MEDICARE, OTHER ==
[2022-05-31 14:15] VITALS: BP 109/78; PULSE 77; RESP 18; TEMP 97.9
--- NOTE | 2022-05-31 14:47 | P.PAINPG ---
PQRS Measure Charge Sheet Comment: A 76 yr old male w at side with a history of severe and chronic low back pain secondary to lumbar degenerative disc diseases and lumbar spondylosis with facet arthropathy presents today for an evaluation s/p LESI L5-S1. Pt received 25% pain relief x 2 weeks s/p procedure. Pain level is currently at 0/10 in intensity while sitting and 8/10 when standing, constant, dull/ achy/ sharp/ shooting towards . Pain is provoked by standing/ walking for periods of 10 min or more. Pain is alleviated with medications (Ibuprofen), injections, use of a walker for ambulation, home exercise regimen, sitting, inactivity and rest. Interventional pain procedures completed include LESI x 2, BL RFA L3-L5. Patient is currently on Ibuprofen Patient denies any side effects of the medication(s), denies excessive drowsiness or sleepiness, denies suicidal ideation and reports that the current pain medication is helping to control the pain and improve activities of daily living. Patient denies any motor or sensory deficits. Patient denies any fever or night sweats, denies any change in the bowel movements or urination. Physical Examination: -Constitutional: Cooperative. Not in acute distress . - Neurologic: Cranial nerve II to XII intact. No focal neurological deficits. - Psychatric: Alert & oriented x 3. Matching mood & appropriate affect. Judgment and insight intact. - Musculoskeletal: Cervical spine: Muscle bulk/ tone/ strength in the bilateral upper extremities normal Vertebral body tenderness to palpation over Spurling test positive Distraction test positive Facet loading test positive Thoracic spine Muscle bulk / tone/ strength in the bilateral paraspinal muscles normal Vertebral body tender to palpation over Facet loading test positive Lumbar spine: Motor bulk/ tone/ strength lower extremities , thigh and legs : 5/5 Deep tendon reflexes : Normal Knee Jerk. Normal Ankle Jerk . Vertebral body tenderness to palpation over L4 Lumbar Facet Loading Test positive Straight Leg Raise: positive at 30 degrees right side/ left side Gaenslen's Test positive Sacral spine : Severe tenderness over the Sacroiliac joint: right side / left side Range of motion: Flexion of the lumbar spine <60 degrees Range of motion: Extension of the lumbar spine <20 degrees Gaenslen's Test positive Raymond's Test positive Rigo test: positive right side / left side Thigh Thrust Test Sacral Thrust Test Assessment and plan: Chronic low back pain secondary to lumbar degenerative disc disease , lumbar spondylosis with facet arthropathy without myelopathy Recommendation of LESI L4-L5. May need a series (#3) up to 4 within a 12 mo period, for optimal pain relief. Risks, benefits of procedure discussed and pt verbalized understanding. Denies anticoagulant use or medical history of diabetes. All patient questions answered MAPS reviewed and it was appropriate. I have spent less than 30 minutes on patient care today. Dr Merino was available by phone for the evaluation of this patient. The time was used to review the medical records including relevant urine studies and Prescription history (MAPs), review of the available imaging, evaluation and examination of the patient, coordination of care with the medical staff and if applicable referring physicians, as well as creation of the medical record - Pain Location Lower Back Non-Pharmacological Interventions: Exercise, Inactivity, Position/Reposition, Stretching Pharmacological Interventions: Epidural, PRN Medication PQRS Narrative: Smoking Status Never smoker Hx Alcohol Use (MH) Yes Home Medications: Ambulatory Orders Atorvastatin [Lipitor] 40 mg PO HS@209907/05/21 Cholecalciferol [Vitamin D3 (25 Mcg = 1000 Iu)] 50 mcg PO DAILY@89907/05/21 Melatonin 5 mg PO HS@209907/05/21 Ubidecarenone [Co Q-10] 100 mg PO HS@209907/05/21 Valproic Acid [Depakene] 250 mg PO DAILY@149907/05/21 Venlafaxine HCl ER [Effexor Xr] 100 mg PO DAILY@89907/05/21 hydrALAZINE HCL [Apresoline] 100 mg PO TID@09,1499,209907/05/21 levETIRAcetam 1,000 mg PO BID@899,209907/05/21 Cetirizine HCl 10 mg PO HS@209907/14/21 Valproic Acid [Depakene] 500 mg PO DAILY@899,209907/14/21 Vit C/E/Zn/Coppr/Lutein/Zeaxan [Preservision Areds 2 Softgel] 1 cap PO DAILY@89907/14/21 metFORMIN HCL 500 mg PO BID@0900,1900 09/12/21 Cyanocobalamin [Vitamin B-12] 500 mcg PO DAILY@89901/16/22 Docusate [Colace] 100 mg PO BID PRN 02/08/22 Controlled Substance Measures - Controlled Substance Measures Is patient prescribed a controlled substance at discharge?: No
== END ==
LOC: PNWHC3 13:01
PROVIDERS: ATTEND Specialist
DX: M51.36 Other intervertebral disc degeneration, lumbar region (principal); M47.816 Spondylosis without myelopathy or radiculopathy, lumbar region; G89.29 Other chronic pain; Z88.2 Allergy status to sulfonamides; Z88.8 Allergy status to other drugs, medicaments and biological substances
CPT/HCPCS: 99211

== ENCOUNTER 2022-06-27 12:56 | Day surgery (SDC) | payer MEDICARE, OTHER ==
[2022-06-27] MEDS ORDERED: LACTATED RINGERS 1,000 ML IV SCH (13:43)
[2022-06-27] MEDS ORDERED: LIDOCAINE 1% (10MG/ML) FOR IV START INTRADERMA PRN (13:43)
[2022-06-27 13:51] VITALS: TEMP 97.7
[2022-06-27] MEDS ORDERED: LACTATED RINGERS 1,000 ML IV ONE (13:51)
[2022-06-27 13:54] LABS: Glucose,Whole Blood 176 mg/dL (70-110)
[2022-06-27] MEDS ORDERED: methylPREDNISolone ACETATE 40 MG/ML 1 ML VIAL ONE (14:10)
[2022-06-27] MEDS ORDERED: MIDAZOLAM 2 MG/2 ML VIAL ONE (14:10)
[2022-06-27] MEDS ORDERED: IOPAMIDOL M200 10 ML VIAL ONE (14:10)
[2022-06-27] MEDS ORDERED: fentaNYL (PF) 50 MCG/ML 2 ML AMP ONE (14:10)
--- NOTE | 2022-06-27 14:21 | P.PCN ---
Date of Procedure: 06/27/22 Procedure(s) Performed: PREOPERATIVE DIAGNOSIS: 1- Lumbar Degenerative Disc Diseases 2-Lumbar spondylosis with Facet arthropathy without myelopathy POSTOPERATIVE DIAGNOSIS: Same as preop diagnosis. PROCEDURE 1. Lumbar epidural steroid injection under fluoroscopic guidance at the L4-5 level. (Fluoroscopy imaging was available in radiology department) 2. Lumbar epidurogram. ANESTHESIA: moderate sedation with intravenous Versed 1 mg ,and fentanyle 50 Mcg Sedation start time 1412 Sedation start time 1418 EBL: Minimal PROCEDURE INDICATION: The patient with low back pain and radiculitis symptoms unresponsive to conservative treatment. Fluoroscopy was used to optimize visualization of the needle placement and to maximize safety. PROCEDURE DESCRIPTION / TECHNIQUE: The patient was seen and identified in the preoperative area. Risks, benefits, complications including but not limited to infections ,bleeding ,allergic reaction to the medications ,nerve damage and not complete pain releife , and alternatives were discussed with the patient. The patient agreed to proceed with the procedure and signed the consent. IV was started, and vital signs were stable. Patient was taken to the OR and time out was completed. The patient was placed in the prone position on procedure table and a pillow was placed under the abdomen to reduce lumbar lordosis. The lumbosacral area was prepped and draped in the usual sterile fashion.ere closely monitored during the procedure. Conscious sedation was used during the procedure to decrease patients anxiety. Vital signs was monitered during the entire procedure. Using anterior-posterior fluoroscopy, the L4-5 interlaminar space was identified and the skin over this site was marked and then infiltrated with 1% lidocaine subcutaneously. Subsequently, a 20-gauge Tuohy epidural needle was inserted and advanced toward the epidural space using the ``Loss of resistance technique and guided by AP and lateral fluoroscopy. The correct needle position in the epidural space was verified with the injection of 2 mL of the water soluble contrast dye Isovue 200 contrast and observing an excellent epidurogram with the epidural spread of the dye, after negative aspiration for blood and CSF and in the absence of paresthesias. Again after negative aspiration, a 6 ml mixture containing 40 mg of Depo-medrol , and 2 ml of preservative free Normal Saline, and 2 ml of preservative free lidocaine 1% solution was injected and a washout of epidurogram was seen. Needle was withdrawn intact, skin was cleansed, and bandages were applied. COMPLICATIONS: None DISPOSITION / PLANS: The patient was placed in a supine position and transferred to the recovery area in a stable condition for observation. There was no evidence of lower extremity motor or sensory deficit after the procedure. Patient was discharged from the recovery room after meeting discharge criteria. Home discharge instructions were given to the patient by the staff. The patient was reexamined prior to discharge. The patient will schedule a follow up in the clinic in 2-4 weeks.
[2022-06-27] MEDS ORDERED: IV FLUID CONTINUATION 1,000 ML IV ONE (14:25)
--- NOTE | 2022-06-27 14:39 | FL ---
EXAMINATION TYPE: FL guided pain mgmt statistic DATE OF EXAM: 06/27/2022 CLINICAL HISTORY: Low back pain. TECHNIQUE: Fluoroscopy. COMPARISON: None. FINDINGS: Fluoroscopic guidance was provided during pain relief procedure performed by Dr. Merino . A total of 3 seconds of fluoroscopic time was utilized during the procedure and 2 spot images are acquired. Images acquired shows needle localization at the lumbar spine level with contrast injection . IMPRESSION: As Above.
[2022-06-27 14:57] VITALS: RESP 15
[2022-06-27 15:03] VITALS: BP 113/73; PULSE 74
== END 2022-06-27 15:18 | disposition home or self-care (01) ==
LOC: ORPAIN 12:56
PROVIDERS: ATTEND Specialist
DX: M51.16 Intervertebral disc disorders with radiculopathy, lumbar region (principal); M47.26 Other spondylosis with radiculopathy, lumbar region; M54.50 Low back pain, unspecified; F41.9 Anxiety disorder, unspecified; Z91.030 Bee allergy status
CPT/HCPCS: 62323; J2250; J1030; J3010; Q9966

== ENCOUNTER → 2022-07-24 | Outpatient (CLI) | payer MEDICARE, OTHER ==
[2022-07-24 13:58] VITALS: BP 121/66; PULSE 88; RESP 16
--- NOTE | 2022-07-24 14:49 | P.PAINPG ---
PQRS Measure Charge Sheet Comment: A 76 yr old male w at side with a history of severe and chronic low back pain secondary to lumbar degenerative disc diseases and lumbar spondylosis with facet arthropathy without myelopathy presents today for evaluation s/p MARCELLA L4- L5. Pt states he experienced 0% pain relief s/p procedure. Pain level is currently at 10/10 in intensity, constant, localized in the lower lumbar spine, achy in character w shooting towards the BLEs. Pain is provoked by weight bearing activity. Pain is alleviated with use of a wheelchair for ambulation, PT/ massage/ chiropractic treatments this year, home stertching regimen, meds (Motrin, Aspercreme), repositioning and rest. Interventional pain procedures completed include MARCELLA L4-L5 Patient is currently on Motrin, Aspercreme Patient denies any side effects of the medication(s), denies excessive drowsiness or sleepiness, denies suicidal ideation and reports that the current pain medication is helping to control the pain and improve activities of daily living. Patient denies any motor or sensory deficits. Patient denies any fever or night sweats, denies any change in the bowel movements or urination. Physical Examination: -Constitutional: Cooperative. Not in acute distress . - Neurologic: Cranial nerve II to XII intact. No focal neurological deficits. - Psychatric: Alert & oriented x 3. Matching mood & appropriate affect. Judgment and insight intact. - Musculoskeletal: Cervical spine: Muscle bulk/ tone/ strength in the bilateral upper extremities normal Vertebral body tenderness to palpation over Spurling test positive Distraction test positive Facet loading test positive Thoracic spine Muscle bulk / tone/ strength in the bilateral paraspinal muscles normal Vertebral body tender to palpation over Facet loading test positive Lumbar spine: Motor bulk/ tone/ strength lower extremities , thigh and legs : 5/5 Deep tendon reflexes : Normal Knee Jerk. Normal Ankle Jerk . Vertebral body tenderness to palpation over Lumbar Facet Loading Test positive Straight Leg Raise: positive at 30 degrees right side/ left side Gaenslen's Test positive Sacral spine : Severe tenderness over the Sacroiliac joint: right side / left side Range of motion: Flexion of the lumbar spine <60 degrees Range of motion: Extension of the lumbar spine <20 degrees Gaenslen's Test positive Raymond's Test positive Rigo test: positive right side / left side Thigh Thrust Test Sacral Thrust Test Assessment and plan: Chronic low back pain secondary to lumbar degenerative disc disease , lumbar spondylosis with facet arthropathy without myelopathy Would like PT integrated w massage, 2 x / wk x 6 wks Re: M51.36, M 62.81 All patient questions answered I have spent less than 30 minutes on patient care today. Dr Merino was available by phone for the evaluation of this patient. The time was used to review the medical records including relevant urine studies and Prescription history (MAPs), review of the available imaging, evaluation and examination of the patient, coordination of care with the medical staff and if applicable referring physicians, as well as creation of the medical record PQRS Narrative: Smoking Status Never smoker Hx Alcohol Use (MH) Yes Home Medications: Ambulatory Orders Atorvastatin [Lipitor] 40 mg PO HS@209907/05/21 Cholecalciferol [Vitamin D3 (25 Mcg = 1000 Iu)] 50 mcg PO DAILY@89907/05/21 Melatonin 5 mg PO HS@209907/05/21 Ubidecarenone [Co Q-10] 100 mg PO HS@209907/05/21 Valproic Acid [Depakene] 250 mg PO DAILY@1500 07/05/21 Venlafaxine HCl ER [Effexor Xr] 100 mg PO DAILY@89907/05/21 hydrALAZINE HCL [Apresoline] 100 mg PO TID@00,1499,209907/05/21 levETIRAcetam 1,000 mg PO BID@899,209907/05/21 Cetirizine HCl 10 mg PO HS@209907/14/21 Valproic Acid [Depakene] 500 mg PO DAILY@899,209907/14/21 Vit C/E/Zn/Coppr/Lutein/Zeaxan [Preservision Areds 2 Softgel] 1 cap PO DAILY@89907/14/21 metFORMIN HCL 500 mg PO BID@0900,1900 09/12/21 Cyanocobalamin [Vitamin B-12] 500 mcg PO DAILY@89901/16/22 Docusate [Colace] 100 mg PO BID PRN 02/08/22 Controlled Substance Measures - Controlled Substance Measures Is patient prescribed a controlled substance at discharge?: No
== END ==
LOC: PNWHC3 13:30
PROVIDERS: ATTEND Specialist
DX: M47.816 Spondylosis without myelopathy or radiculopathy, lumbar region (principal); M51.36 Other intervertebral disc degeneration, lumbar region; G89.29 Other chronic pain; Z88.8 Allergy status to other drugs, medicaments and biological substances; Z88.2 Allergy status to sulfonamides; E66.9 Obesity, unspecified; Z68.30 Body mass index [BMI] 30.0-30.9, adult
CPT/HCPCS: 99211

== ENCOUNTER → 2022-09-06 | Outpatient (CLI) | payer MEDICARE ==
[2022-09-06 14:04] VITALS: BP 125/82; PULSE 86; RESP 16; TEMP 98.5
--- NOTE | 2022-09-06 14:53 | P.PN ---
Subjective Progress Note Date: 09/06/22 This is 76 yr old male ,with history of severe and chronic low back pain secondary to lumbar degenerative disc diseases and lumbar spondylosis with facet arthropathy without myelopathy presents, today for evaluation s/p MARCELLA L4-L5. Previously we have done 3 lumbar epidural steroid injection, Pt states he had some benefit after the first and the second lumbar epidural steroid injection but he had no benefit after the third injections,he experienced 0% pain relief s/p the last procedure. He'll currently doing physical therapy and he reported that it helped to improve his pain,, localized in the lower lumbar spine, achy in character w shooting towards the BLEs. Pain is provoked by weight bearing activity. Pain is alleviated with use of a wheelchair for ambulation, PT/ massage/ chiropractic treatments this year, home stertching regimen, meds (Motrin, Aspercreme), repositioning and rest. Interventional pain procedures completed include MARCELLA L4-L5 Patient is currently on Motrin, Aspercreme Patient denies any side effects of the medication(s), denies excessive drowsiness or sleepiness, denies suicidal ideation and reports that the current pain medication is helping to control the pain and improve activities of daily living. Patient denies any motor or sensory deficits. Patient denies any fever or night sweats, denies any change in the bowel movements or urination. Physical Examination: -Constitutional: Cooperative. Not in acute distress . - Neurologic: Cranial nerve II to XII intact. No focal neurological deficits. - Psychatric: Alert & oriented x 3. Matching mood & appropriate affect. Judgment and insight intact. - Musculoskeletal: Cervical spine: Muscle bulk/ tone/ strength in the bilateral upper extremities normal Vertebral body tenderness to palpation over Spurling test positive Distraction test positive Facet loading test positive Thoracic spine Muscle bulk / tone/ strength in the bilateral paraspinal muscles normal Vertebral body tender to palpation over Facet loading test positive Lumbar spine: Motor bulk/ tone/ strength lower extremities , thigh and legs : 5/5 Deep tendon reflexes : Normal Knee Jerk. Normal Ankle Jerk . Vertebral body tenderness to palpation over Lumbar Facet Loading Test positive Straight Leg Raise: positive at 30 degrees right side/ left side Gaenslen's Test positive Sacral spine : Severe tenderness over the Sacroiliac joint: right side / left side Range of motion: Flexion of the lumbar spine <60 degrees Range of motion: Extension of the lumbar spine <20 degrees Gaenslen's Test positive Raymond's Test positive Rigo test: positive right side / left side Thigh Thrust Test Sacral Thrust Test Assessment and plan: Chronic low back pain secondary to lumbar degenerative disc disease , lumbar spondylosis with facet arthropathy without myelopathy Patient continues to have low back pain after lumbar epidural steroid injections 3 Patient currently doing physical therapy and he has to feel more session of physical therapy Patient to follow up with Dr. Hdz spine surgeon for evaluation for possible surgical intervention. She could benefit from a repeat lumbar epidural steroid injection in the future All patient questions answered Home Medications: Ambulatory Orders Atorvastatin [Lipitor] 40 mg PO HS@209907/05/21 Cholecalciferol [Vitamin D3 (25 Mcg = 1000 Iu)] 50 mcg PO DAILY@89907/05/21 Melatonin 5 mg PO HS@209907/05/21 Ubidecarenone [Co Q-10] 100 mg PO HS@209907/05/21 Valproic Acid [Depakene] 250 mg PO DAILY@1500 07/05/21 Venlafaxine HCl ER [Effexor Xr] 100 mg PO DAILY@89907/05/21 hydrALAZINE HCL [Apresoline] 100 mg PO TID@00,1499,209907/05/21 levETIRAcetam 1,000 mg PO BID@899,209907/05/21 Cetirizine HCl 10 mg PO HS@209907/14/21 Valproic Acid [Depakene] 500 mg PO DAILY@899,209907/14/21 Vit C/E/Zn/Coppr/Lutein/Zeaxan [Preservision Areds 2 Softgel] 1 cap PO DAILY@89907/14/21 metFORMIN HCL 500 mg PO BID@0900,1900 09/12/21 Cyanocobalamin [Vitamin B-12] 500 mcg PO DAILY@89901/16/22 Docusate [Colace] 100 mg PO BID PRN 02/08/22 Controlled Substance Measures - Controlled Substance Measures Is patient prescribed a controlled substance at discharge?: No Objective - Vital Signs Vital signs: Vital Signs Temp 98.5 F 09/06/22 13:58 Pulse 86 09/06/22 13:58 Resp 16 09/06/22 13:58 BP 125/82 09/06/22 13:58 Pulse Ox 96 09/06/22 13:58 FiO2 Intake & Output 09/05/22 09/06/22 09/06/22 18:59 06:59 18:59 Weight 95.254 kg
== END | disposition home or self-care (01) ==
LOC: PNWHC3 13:36
PROVIDERS: ATTEND Specialist
DX: M51.36 Other intervertebral disc degeneration, lumbar region (principal); M47.896 Other spondylosis, lumbar region; M46.96 Unspecified inflammatory spondylopathy, lumbar region
CPT/HCPCS: 99211

== ENCOUNTER → 2023-04-11 | Outpatient (CLI) | payer MEDICARE, OTHER ==
--- NOTE | 2023-04-12 08:30 | MR ---
EXAMINATION TYPE: MR Prostate wo/w con DATE OF EXAM: 04/11/2023 9:00 AM COMPARISON: 01/16/2022. CLINICAL INDICATION:Male, 77 years old with history of R97.20; TECHNIQUE: Multi-planar, multi-sequence imaging of the pelvis is performed prior to and following the uncomplicated administration of bolus intravenous gadolinium. CONTRAST: 9.5 Gadavist Interpretive Criteria: PI-RADS v2.1 SERUM PSA: 6.4 on 06/23/2021. 6.9 and 02/24/2022. 11.6 and 03/07/2023. SURGICAL PATHOLOGY: No data available. FINDINGS: Prostatic dimensions: 5.1 x 5.6 x 3.8 cm. Ellipsoid Volume: 56.83 (PSA density=0.20 ng/mL/mL) CENTRAL GLAND (Central and Transition Zones/CZ+TZ): Multiple bilateral, heterogenous appearing hypertrophic stromal nodules, without suspicious lesion. M edian lobe hypertrophy with protrusion into the base of the bladder. (PI-RADS 2) PERIPHERAL ZONE (PZ): Bilateral linear, indistinct wedgelike areas of low ADC, and low T2 signal, No evidence of masslike a bnormality, or localized perfusional hypervascularity, to further suggest a focus of clinically signi ficant prostate cancer. (PI-RADS 2) SEMINAL VESICLES (SV): Symmetric and unremarkable. PERIPROSTATIC TISSUES: Unremarkable. LYMPH NODES: Enlarging right common iliac chain lymph node measuring up to 12 mm in short axis. Previously 7 mm in short axis on 01/16/2022. REMAINING PELVIS: Bladder wall is within normal limits given distention. No abnormal free or organized intrapelvic fluid collection. No pathologic bowel dilation or mural thickening. OSSEOUS STRUCTURES: No suspicious osseous abnormality. IMPRESSION: 1. Limited peripheral zone evaluation on DWI imaging secondary to rectal gas. Within that limitation there is no specific features for high-risk prostate cancer. Maximum PI-RADS score: 2. 2. Moderate BPH, estimated gland volume 56.83 mL. 3. Indeterminate enlarging right external iliac lymph node compared to 01/16/[address]22 CT examination. Consi brian PET/CT gallium-68 PSMA scan if there is high suspicion for prostatic malignancy.
== END | disposition home or self-care (01) ==
LOC: RADMRIMAIN 08:00
PROVIDERS: ATTEND Urology
DX: N40.0 Benign prostatic hyperplasia without lower urinary tract symptoms (principal); R97.20 Elevated prostate specific antigen [PSA]
CPT/HCPCS: 72197; A9585

== ENCOUNTER 2023-05-13 22:47 | Observation (INO) | payer MEDICARE, OTHER ==
[2023-05-13] MEDS ORDERED: SODIUM CHLORIDE 0.9% 1,000 ML IV STA (22:50)
--- NOTE | 2023-05-13 22:51 | ED ---
Weakness HPI - General Stated complaint: Weakness Time Seen by Provider: 05/13/23 22:50 Source: RN notes reviewed, old records reviewed Mode of arrival: EMS Limitations: no limitations - History of Present Illness Initial comments: This is a 77-year-old male to the emergency department for evaluation of weakness. Weakness of unknown cause. Patient states he is was profoundly weak throughout the day today. No difficulty with ambulation. Patient denies any headache trauma falls back pain. Does feel lightheaded and dizzy no chest pain. No fevers no travel history no sick contacts no change in medications. Patient continues to complain of weakness with nausea vomiting and diarrhea MD Complaint: generalized weakness, lack of energy, difficulty walking -: days(s) Location: generalized Severity: moderate Severity scale (1-10): 6 Consistency: constant Improves with: none Context: recent illness, history of similar Associated Symptoms: confusion, loss of appetite, nausea/vomiting - Related Data Home Medications Medication Instructions Recorded Confirmed Atorvastatin [Lipitor] 40 mg PO HS@209907/05/21 05/14/23 Cholecalciferol [Vitamin D3 (25 50 mcg PO DAILY@89907/05/21 05/14/23 Mcg = 1000 Iu)] Melatonin 5 mg PO HS@209907/05/21 05/14/23 Ubidecarenone [Co Q-10] 100 mg PO HS@209907/05/21 05/14/23 Valproic Acid [Depakene] 250 mg PO DAILY@1500 07/05/21 05/14/23 hydrALAZINE HCL [Apresoline] 100 mg PO TID@0900,1500,209907/05/21 05/14/23 levETIRAcetam 1,000 mg PO BID@0900,209907/05/21 05/14/23 Cetirizine HCl 10 mg PO HS@209907/14/21 05/14/23 Valproic Acid [Depakene] 500 mg PO DAILY@0900,209907/14/21 05/14/23 Vit C/E/Zn/Coppr/Lutein/Zeaxan 1 cap PO DAILY@0907/14/21 05/14/23 [Preservision Areds 2 Softgel] metFORMIN HCL 500 mg PO DAILY@0909/12/21 05/14/23 Cyanocobalamin [Vitamin B-12] 1,000 mcg PO DAILY@0900 01/16/22 05/14/23 Multivit-Min/FA/Lycopen/Lutein 1 tab PO DAILY@0905/14/23 05/14/23 [Centrum Silver Tablet] Venlafaxine HCl ER [Effexor XR] 150 mg PO DAILY@0905/14/23 05/14/23 metFORMIN HCL [Glucophage] 1,000 mg PO DAILY@1900 05/14/23 05/14/23 Previous Rx's Medication Instructions Recorded Cefuroxime [Ceftin] 250 mg PO BID 5 Days #10 tab 05/16/23 Allergies Allergy/AdvReac Type Severity Reaction Status Date / Time nitroglycerin AdvReac Severe severe Verified 05/14/23 07:59 [From Nitro-Bid] headaches. Sulfa (Sulfonamide AdvReac Severe severe Verified 05/14/23 07:59 Antibiotics) headaches Review of Systems ROS Statement: Those systems with pertinent positive or pertinent negative responses have been documented in the HPI. ROS Other: All systems not noted in ROS Statement are negative. Past Medical History Past Medical History: CVA/TIA, Diabetes Mellitus, Hearing Disorder / Deafness, Hypertension, Seizure Disorder Additional Past Medical History / Comment(s): HX TRIPPED & HIT HIS HEAD APRIL 2020 HAD INTRACRAINIAL SUBDURAL HEMATOMA AND DELAYED SURGERY-(dizziness developed 12 days later, surgery delayed then due to being on blood thinner). HX OF SEIZURES AFTER HEAD INJURY-(LAST SEIZURE 05/2020). STATES HANDS SHAKE. BOTH LEGS SHAKE, balance problems, WEAKNESS BILATERAL LEGS. PAIN LOWER BACK FOR OVER 1 YEAR-PAIN WITH WALKING. Hard of hearing. History of Any Multi-Drug Resistant Organisms: None Reported Past Surgical History: Appendectomy, Orthopedic Surgery Additional Past Surgical History / Comment(s): Hand surgery, arthroscopy surgery (right X2, left X3), SURGERY FOR INTRACRANIAL SUBDURAL HEMATOMA (MAY 2020).,[facility] Procedure, bilateral cataract surgery. Past Anesthesia/Blood Transfusion Reactions: No Reported Reaction Smoking Status: Never smoker - Past Family History Mother Family Medical History: No Reported History General Exam - General Exam Comments Initial Comments: NIH of 0 General appearance: alert, in no apparent distress Head exam: Present: atraumatic, normocephalic, normal inspection Eye exam: Present: normal appearance, PERRL, EOMI. Absent: scleral icterus, conjunctival injection, periorbital swelling ENT exam: Present: normal exam, mucous membranes moist Neck exam: Present: normal inspection. Absent: tenderness, meningismus, lymphadenopathy Respiratory exam: Present: normal lung sounds bilaterally. Absent: respiratory distress, wheezes, rales, rhonchi, stridor Cardiovascular Exam: Present: regular rate, normal rhythm, normal heart sounds. Absent: systolic murmur, diastolic murmur, rubs, gallop, clicks GI/Abdominal exam: Present: soft, normal bowel sounds. Absent: distended, tenderness, guarding, rebound, rigid Extremities exam: Present: normal inspection, full ROM, normal capillary refill. Absent: tenderness, pedal edema, joint swelling, calf tenderness Back exam: Present: normal inspection Neurological exam: Present: alert, oriented X3, CN II-XII intact Psychiatric exam: Present: normal affect, normal mood Skin exam: Present: warm, dry, intact, normal color. Absent: rash Course Vital Signs 05/13/23 05/14/23 05/14/23 22:52 01:00 06:00 Temperature 99.1 F 99.8 F H Pulse Rate 97 98 83 Respiratory 16 16 18 Rate Blood Pressure 131/84 119/78 122/68 O2 Sat by Pulse 96 96 96 Oximetry 05/14/23 05/14/23 06:36 07:28 Temperature 98.2 F 98.5 F Pulse Rate 79 Respiratory 16 Rate Blood Pressure 136/76 O2 Sat by Pulse 97 Oximetry - Reevaluation(s) Reevaluation #1: 05/14/23 05:09 Medical records reviewed Reevaluation #2: 05/14/23 05:09 Patient still feeling significantly weak Reevaluation #3: 05/14/23 05:09 Patient informed of results questions answered Reevaluation #4: 05/14/23 00:07 Was pt. sent in by a medical professional or institution (, PA, CLAY HOISTER, urgent care, hospital, or halfway...) When possible be specific @ -no Did you speak to anyone other than the patient for history (EMS, parent, family, police, friend...)? What history was obtained from this source @ -no Did you review nursing and triage notes (agree or disagree)? Why? @ -agree Are old charts reviewed (outside hosp., previous admission, EMS record, old EKG, old radiological studies, urgent care reports/EKG's, halfway records)? Report findings @ -yes Differential Diagnosis (chest pain, altered mental status, abdominal pain women, abdominal pain men, vaginal bleeding, weakness, fever, dyspnea, syncope, headache, dizziness, GI bleed, back pain, seizure, CVA, palpatations, mental health, musculoskeletal)? @ -prior EKG interpreted by me (3pts min.). @ -yes X-rays interpreted by me (1pt min.). @ -yes CT interpreted by me (1pt min.). @ -yes U/S interpreted by me (1pt. min.). @ -no What testing was considered but not performed or refused? (CT, X-rays, U/S, labs)? Why? @ -none What meds were considered but not given or refused? Why? @ -none Did you discuss the management of the patient with other professionals (professionals i.e. , PA, CLAY HOISTER, lab, RT, psych nurse, social insurance administrator, electrical controls designer, teacher, program officer, director of casework)? Give summary @ -no Was smoking cessation discussed for >3mins.? @ -no Was critical care preformed (if so, how long)? @ -no Were there social determinants of health that impacted care today? How? (Homelessness, low income, unemployed, alcoholism, drug addiction, transportation, low edu. Level, literacy, decrease access to med. care, skilled nursing, rehab)? @ -none Was there de-escalation of care discussed even if they declined (Discuss DNR or withdrawal of care, Hospice)? DNR status @ -no What co-morbidities impacted this encounter? (DM, HTN, Smoking, COPD, CAD, Cancer, CVA, ARF, Chemo, Hep., AIDS, mental health diagnosis, sleep apnea, morbid obesity)? @ -none Was patient admitted / discharged? Hospital course, mention meds given and route, prescriptions, significant lab abnormalities, going to OR and other pertinent info. @ - 77 male to the emergency department for evaluation of severe weakness. Patient states he was unable to walk or get around on his own today. Patient presents with meals conditions with elevated lactic acid. Patient has multiple imaging modalities is also complaining of nausea vomiting diarrhea and he will be admitted for dehydration and weakness Admitted Undiagnosed new problem with uncertain prognosis? @ -no Drug Therapy requiring intensive monitoring for toxicity (Heparin, Nitro, Insulin, Cardizem)? @ -no Were any procedures done? @ -no Diagnosis/symptom? @ -Nausea vomiting diarrhea and weakness Acute, or Chronic, or Acute on Chronic? @ -Acute Uncomplicated (without systemic symptoms) or Complicated (systemic symptoms)? @ -Complicated Side effects of treatment? @ -no Exacerbation, Progression, or Severe Exacerbation? @ -exacerbation Poses a threat to life or bodily function? How? (Chest pain, USA, MS, pneumonia, PE, COPD, DKA, ARF, appy, cholecystitis, CVA, Diverticulitis, Homicidal, Suicidal, threat to staff... and all critical care pts) @ -yes Reevaluation #5: 05/14/23 05:08 Differential Weakness: Hypoglycemia, shock, sepsis, hyponatremia, anemia, infection, MS, ETOH, adverse medicine reaction, overdose, stroke, this is not meant to be an all-inclusive list. - Consultations Consultation #1: Spoke with Dr. the ER wilkes for admission EKG Findings - EKG Comments: EKG Findings:: EKG is sinus tachycardia 4 [place] 208 QRS 147 QTC 426 - EKG Results: EKG: interpreted by [facility] Medical Decision Making - Medical Decision Making 77 male to the emergency department for evaluation of severe weakness. Patient states he was unable to walk or get around on his own today. Patient presents with meals conditions with elevated lactic acid. Patient has multiple imaging modalities is also complaining of nausea vomiting diarrhea and he will be admitted for dehydration and weakness - Lab Data Result diagrams: 05/16/23 05:24 05/16/23 05:24 Lab Results 05/13/23 05/13/23 05/13/23 Range/Units 23:49 23:49 23:49 WBC 12.4 H (3.8-10.6) k/uL RBC 4.59 (4.30-5.90) m/uL Hgb 15.7 (13.0-17.5) gm/dL Hct 44.2 (39.0-53.0) % MCV 96.3 (80.0-100.0) fL MCH 34.2 (25.0-35.0) pg MCHC 35.5 (31.0-37.0) g/dL RDW 13.0 (11.5-15.5) % Plt Count 72 L D (150-450) k/uL MPV 11.4 Neutrophils % 83 % Lymphocytes % 9 % Monocytes % 7 % Eosinophils % 1 % Basophils % 0 % Neutrophils # 10.3 H (1.3-7.7) k/uL Lymphocytes # 1.1 (1.0-4.8) k/uL Monocytes # 0.9 (0-1.0) k/uL Eosinophils # 0.1 (0-0.7) k/uL Basophils # 0.0 (0-0.2) k/uL PT 10.5 (9.0-12.0) sec INR 1.0 (<1.2) APTT 22.9 (22.0-30.0) sec Sodium 134 L (137-145) mmol/L Potassium 4.4 (3.5-5.1) mmol/L Chloride 98 (98-107) mmol/L Carbon Dioxide 24 (22-30) mmol/L Anion Gap 12 mmol/L BUN 16 (9-20) mg/dL Creatinine 1.02 (0.66-1.25) mg/dL Est GFR (CKD-EPI)AfAm 81 (>60 ml/min/1.73 sqM) Est GFR (CKD-EPI)NonAf 70 (>60 ml/min/1.73 sqM) Glucose 257 H (74-99) mg/dL Lactic Ac Sepsis Rflx Plasma Lactic Acid Jass (0.7-2.0) mmol/L Calcium 9.5 (8.4-10.2) mg/dL Phosphorus 2.9 (2.5-4.5) mg/dL Magnesium 1.6 (1.6-2.3) mg/dL Total Bilirubin 0.7 (0.2-1.3) mg/dL AST 26 (17-59) U/L ALT 26 (4-49) U/L Alkaline Phosphatase 63 (38-126) U/L Troponin I (0.000-0.034) ng/mL NT-Pro-B Natriuret Pep 147 pg/mL Total Protein 6.7 (6.3-8.2) g/dL Albumin 4.2 (3.5-5.0) g/dL Urine Color Urine Appearance (Clear) Urine pH (5.0-8.0) Ur Specific [place] (1.001-1.035) Urine Protein (Negative) Urine Glucose (UA) (Negative) Urine Ketones (Negative) Urine Blood (Negative) Urine Nitrite (Negative) Urine Bilirubin (Negative) Urine Urobilinogen (<2.0) mg/dL Ur Leukocyte Esterase (Negative) Urine RBC (0-5) /hpf Urine WBC (0-5) /hpf Urine Bacteria (None) /hpf Urine Mucus (None) /hpf 05/13/23 05/13/23 05/14/23 Range/Units 23:49 23:49 00:38 WBC (3.8-10.6) k/uL RBC (4.30-5.90) m/uL Hgb (13.0-17.5) gm/dL Hct (39.0-53.0) % MCV (80.0-100.0) fL MCH (25.0-35.0) pg MCHC (31.0-37.0) g/dL RDW (11.5-15.5) % Plt Count (150-450) k/uL MPV Neutrophils % % Lymphocytes % % Monocytes % % Eosinophils % % Basophils % % Neutrophils # (1.3-7.7) k/uL Lymphocytes # (1.0-4.8) k/uL Monocytes # (0-1.0) k/uL Eosinophils # (0-0.7) k/uL Basophils # (0-0.2) k/uL PT (9.0-12.0) sec INR (<1.2) APTT (22.0-30.0) sec Sodium (137-145) mmol/L Potassium (3.5-5.1) mmol/L Chloride (98-107) mmol/L Carbon Dioxide (22-30) mmol/L Anion Gap mmol/L BUN (9-20) mg/dL Creatinine (0.66-1.25) mg/dL Est GFR (CKD-EPI)AfAm (>60 ml/min/1.73 sqM) Est GFR (CKD-EPI)NonAf (>60 ml/min/1.73 sqM) Glucose (74-99) mg/dL Lactic Ac Sepsis Rflx Y Plasma Lactic Acid Jass 4.9 H* (0.7-2.0) mmol/L Calcium (8.4-10.2) mg/dL Phosphorus (2.5-4.5) mg/dL Magnesium (1.6-2.3) mg/dL Total Bilirubin (0.2-1.3) mg/dL AST (17-59) U/L ALT (4-49) U/L Alkaline Phosphatase (38-126) U/L Troponin I <0.012 (0.000-0.034) ng/mL NT-Pro-B Natriuret Pep pg/mL Total Protein (6.3-8.2) g/dL Albumin (3.5-5.0) g/dL Urine Color Urine Appearance (Clear) Urine pH (5.0-8.0) Ur Specific [place] (1.001-1.035) Urine Protein (Negative) Urine Glucose (UA) (Negative) Urine Ketones (Negative) Urine Blood (Negative) Urine Nitrite (Negative) Urine Bilirubin (Negative) Urine Urobilinogen (<2.0) mg/dL Ur Leukocyte Esterase (Negative) Urine RBC (0-5) /hpf Urine WBC (0-5) /hpf Urine Bacteria (None) /hpf Urine Mucus (None) /hpf 05/14/23 05/14/23 05/14/23 Range/Units 03:12 03:50 05:00 WBC (3.8-10.6) k/uL RBC (4.30-5.90) m/uL Hgb (13.0-17.5) gm/dL Hct (39.0-53.0) % MCV (80.0-100.0) fL MCH (25.0-35.0) pg MCHC (31.0-37.0) g/dL RDW (11.5-15.5) % Plt Count (150-450) k/uL MPV Neutrophils % % Lymphocytes % % Monocytes % % Eosinophils % % Basophils % % Neutrophils # (1.3-7.7) k/uL Lymphocytes # (1.0-4.8) k/uL Monocytes # (0-1.0) k/uL Eosinophils # (0-0.7) k/uL Basophils # (0-0.2) k/uL PT (9.0-12.0) sec INR (<1.2) APTT (22.0-30.0) sec Sodium (137-145) mmol/L Potassium (3.5-5.1) mmol/L Chloride (98-107) mmol/L Carbon Dioxide (22-30) mmol/L Anion Gap mmol/L BUN (9-20) mg/dL Creatinine (0.66-1.25) mg/dL Est GFR (CKD-EPI)AfAm (>60 ml/min/1.73 sqM) Est GFR (CKD-EPI)NonAf (>60 ml/min/1.73 sqM) Glucose (74-99) mg/dL Lactic Ac Sepsis Rflx Y Plasma Lactic Acid Jass 2.4 H* (0.7-2.0) mmol/L Calcium (8.4-10.2) mg/dL Phosphorus (2.5-4.5) mg/dL Magnesium (1.6-2.3) mg/dL Total Bilirubin (0.2-1.3) mg/dL AST (17-59) U/L ALT (4-49) U/L Alkaline Phosphatase (38-126) U/L Troponin I (0.000-0.034) ng/mL NT-Pro-B Natriuret Pep pg/mL Total Protein (6.3-8.2) g/dL Albumin (3.5-5.0) g/dL Urine Color Yellow Urine Appearance Clear (Clear) Urine pH 5.5 (5.0-8.0) Ur Specific [place] 1.020 (1.001-1.035) Urine Protein Negative (Negative) Urine Glucose (UA) 3+ (Negative) Urine Ketones 1+ (Negative) Urine Blood Negative (Negative) Urine Nitrite Negative (Negative) Urine Bilirubin Negative (Negative) Urine Urobilinogen <2.0 (<2.0) mg/dL Ur Leukocyte Esterase Negative (Negative) Urine RBC 0 (0-5) /hpf Urine WBC 0 (0-5) /hpf Urine Bacteria NONE (None) /hpf Urine Mucus NONE (None) /hpf - EKG Data -: EKG Interpreted by Me (EKG sinus 94 [place] 208 QRS 147 QTC 426) - Radiology Data Radiology results: report reviewed (Chest x-rays negative for acute disease, CT brain CT head and pelvis negative for acute disease), image reviewed Disposition Clinical Impression: Dehydration, Weakness Disposition: ADMITTED IP TO THIS [facility] Condition: Stable Is patient prescribed a controlled substance at d/c from ED?: No Time of Disposition: 05:00
[2023-05-14 00:17] LABS: ALT 26 U/L (4-49); AST 26 U/L (17-59); African American GFR (CKD) 81 (>60 ml/min/1.73 sqM); Albumin 4.2 g/dL (3.5-5.0); Alkaline Phosphatase 63 U/L (38-126); Anion Gap 12 mmol/L; Blood Urea Nitrogen 16 mg/dL (9-20); Calcium 9.5 mg/dL (8.4-10.2); Carbon Dioxide 24 mmol/L (22-30); Chloride 98 mmol/L (98-107); Glucose 257 mg/dL (74-99); Magnesium 1.6 mg/dL (1.6-2.3); Non-African American GFR(CKD) 70 (>60 ml/min/1.73 sqM); Phosphorus 2.9 mg/dL (2.5-4.5); Potassium 4.4 mmol/L (3.5-5.1); Sodium 134 mmol/L (137-145); Total Bilirubin 0.7 mg/dL (0.2-1.3); Total Protein 6.7 g/dL (6.3-8.2)
[2023-05-14 00:18] LABS: Partial Thromboplastin Time 22.9 sec (22.0-30.0); Prothrombin Time 10.5 sec (9.0-12.0)
[2023-05-14 00:26] LABS: NT-Pro-B-Type Natriuretic Pept 147 pg/mL
[2023-05-14 00:49] LABS: Basophils % (A) 0 %; Eosinophils # (A) 0.1 k/uL (0-0.7); Eosinophils % (A) 1 %; HCT 44.2 % (39.0-53.0); HGB 15.7 gm/dL (13.0-17.5); Lymphocytes # (A) 1.1 k/uL (1.0-4.8); Lymphocytes % (A) 9 %; MCH 34.2 pg (25.0-35.0); MCHC 35.5 g/dL (31.0-37.0); MCV 96.3 fL (80.0-100.0); Mean Platelet Volume 11.4; Monocytes # (A) 0.9 k/uL (0-1.0); Monocytes % (A) 7 %; Neutrophils # (A) 10.3 k/uL (1.3-7.7); Neutrophils % (A) 83 %; RBC 4.59 m/uL (4.30-5.90); WBC 12.4 k/uL (3.8-10.6)
[2023-05-14 00:52] LABS: Platelet Count 72 k/uL (150-450)
--- NOTE | 2023-05-14 01:03 | XR ---
EXAM: XR Chest, 1 View CLINICAL HISTORY: ITS.REASON XR Reason: weak' TECHNIQUE: Frontal view of the chest. COMPARISON: No relevant prior studies available. FINDINGS: Lungs: Atelectasis in the lingula. Right lung is clear. Pleural space: Small left pleural effusion. No pneumothorax. Heart: Unremarkable. No cardiomegaly. IMPRESSION: 1. Small left pleural effusion and lingular atelectasis.
[2023-05-14] MEDS ORDERED: SODIUM CHLORIDE 0.9% 1,000 ML IV STA ×2 (03:17→03:19)
[2023-05-14 04:18] LABS: Appearance,Urine Clear (Clear); Bilirubin,Urine Negative (Negative); Blood,Urine Negative (Negative); Color,Urine Yellow; Glucose,Urine (UA) 3+ (Negative); Ketones,Urine 1+ (Negative); Leukocyte Esterase,Urine Negative (Negative); Nitrite,Urine Negative (Negative); PH, Urine 5.5 (5.0-8.0); Protein,Urine Negative (Negative); Urobilinogen,Urine <2.0 mg/dL (<2.0)
[2023-05-14 04:34] LABS: RBC,Urine 0 /hpf (0-5); WBC,Urine 0 /hpf (0-5)
--- NOTE | 2023-05-14 04:46 | CT ---
EXAM: CT Head Without Intravenous Contrast CLINICAL HISTORY: ITS.REASON CT Reason: weak TECHNIQUE: Axial computed tomography images of the head/brain without intravenous contrast. CTDI is 49.2 mGy and DLP is 1129.4 mGy-cm. This CT exam was performed using one or more of the following dose reduction techniques: automated exposure control, adjustment of the mA and/or kV according to patient size, and/or use of iterative reconstruction technique. COMPARISON: No relevant prior studies available. FINDINGS: Brain: Global parenchymal atrophy. No intracranial hemorrhage, mass- effect, or cerebral edema. Mild dural thickening subjacent to the craniotomy flap. Ventricles: Unremarkable. Bones/joints: Prior left convexity craniotomy. Soft tissues: Unremarkable. Sinuses: No acute sinusitis. Mastoid air cells: Unremarkable as visualized. IMPRESSION: 1. No acute intracranial abnormality.
--- NOTE | 2023-05-14 04:50 | CT ---
EXAM: CT Abdomen and Pelvis Without Intravenous Contrast CLINICAL HISTORY: ITS.REASON CT Reason: NVD TECHNIQUE: Axial computed tomography images of the abdomen and pelvis without intravenous contrast. CTDI is 19.3 mGy and DLP is 1240 mGy-cm. This CT exam was performed using one or more of the following dose reduction techniques: automated exposure control, adjustment of the mA and/or kV according to patient size, and/or use of iterative reconstruction technique. COMPARISON: CT 01/16/2022 FINDINGS: ABDOMEN: Liver: Unremarkable. Gallbladder and bile ducts: Cholelithiasis without cholecystitis. Pancreas: Unremarkable. Spleen: Unremarkable. Adrenals: Unremarkable. Kidneys and ureters: Nonobstructing nephrolithiasis bilaterally. No ureteral stone or obstructive uropathy. Cortical cysts bilaterally. Stomach and bowel: Unremarkable. PELVIS: Appendix: No findings to suggest acute appendicitis. Bladder: Unremarkable. Reproductive: Unremarkable as visualized. ABDOMEN and PELVIS: Intraperitoneal space: Unremarkable. No free air. No significant fluid collection. Bones/joints: No acute fracture. Soft tissues: Unremarkable. Vasculature: Unremarkable. Lymph nodes: Unremarkable. IMPRESSION: No acute findings in the abdomen or pelvis.
[2023-05-14] MEDS ORDERED: MORPHINE SULFATE 4 MG/ML SYRINGE IV PRN (05:09)
[2023-05-14] MEDS ORDERED: NALOXONE 0.4 MG/ML 1 ML VIAL IV PRN (05:09)
[2023-05-14] MEDS ORDERED: ONDANSETRON 4 MG/2 ML VIAL IVP PRN (05:09)
[2023-05-14] MEDS: SODIUM CHLORIDE 0.9% 1,000 ML IV SCH ×3 (05:17→21:02)
[2023-05-14 07:57] LABS: Glucose,Whole Blood 199 mg/dL (70-110)
--- NOTE | 2023-05-14 08:43 | P.HPIM ---
History of Present Illness H&P Date: 05/14/23 Clemente Islas, is a 77-year-old male who presented to [facility] emergency room with a chief complaint of nausea vomiting diarrhea and severe generalized weakness. Patient stated that he started having nausea vomiting and diarrhea several days ago, he became increasingly weak, he was having headache. He was evaluated in the emergency room vital examination on presentation revealed a temperature of 99.1 pulse 97 respiration 16 and blood pressure 131/84 pulse ox 96% on room air Laboratory data revealed a white blood count of 12.4 hemoglobin 15.7 platelet count 72 sodium 134 potassium 4.4 chloride 98 CO2 24 BUN 16 creatinine 1.02 glucose 257 lactic acid was elevated at 4.9 troponin 0.012 urine analysis was normal. Testing in the emergency room revealed computed tomography scan of the brain revealed no acute intracranial abnormality, computed tomography scan of the abdomen and pelvis revealed no acute findings. EKG revealed sinus rhythm with right bundle branch block, and left anterior fascicular block. Chest x-ray revealed small left pleural effusion and lingular atelectasis. 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, patient underwent surgery at [facility], patient had subsequence seizures, he is currently maintained on seizure medications, past medical history also significant for hypertension, hyperlipide anai, [id number] diabetes mellitus, and decreased hearing On review of systems patient is alert and oriented 3 in no apparent distress he is complaining of some nausea at this time but no vomiting, there is no fever or chills no headache or dizziness no chest pain no shortness of breath no cough no vomiting no abdominal pain no diarrhea at this time no blood in stools no burning with urination no frequency or urgency and no hematuria, there is no weakness or numbness in any of the extremities he has generalized weakness. Past Medical History Past Medical History: CVA/TIA, Diabetes Mellitus, Hearing Disorder / Deafness, Hypertension, Seizure Disorder Additional Past Medical History / Comment(s): HX TRIPPED & HIT HIS HEAD APRIL 2020 HAD INTRACRAINIAL SUBDURAL HEMATOMA AND DELAYED SURGERY-(dizziness developed 12 days later, surgery delayed then due to being on blood thinner). HX OF SEIZURES AFTER HEAD INJURY-(LAST SEIZURE 05/2020). STATES HANDS SHAKE. BOTH LEGS SHAKE, balance problems, WEAKNESS BILATERAL LEGS. PAIN LOWER BACK FOR OVER 1 YEAR-PAIN WITH WALKING. Hard of hearing. History of Any Multi-Drug Resistant Organisms: None Reported Past Surgical History: Appendectomy, Orthopedic Surgery Additional Past Surgical History / Comment(s): Hand surgery, arthroscopy surgery (right X2, left X3), SURGERY FOR INTRACRANIAL SUBDURAL HEMATOMA (MAY 2020).,[facility] Procedure, bilateral cataract surgery. Past Anesthesia/Blood Transfusion Reactions: No Reported Reaction Past Psychological History: Depression Smoking Status: Never smoker Past Alcohol Use History: Rare Past Drug Use History: None Reported - Past Family History Mother Family Medical History: No Reported History Medications and Allergies Home Medications Medication Instructions Recorded Confirmed Type Atorvastatin [Lipitor] 40 mg PO HS@209907/05/21 09/06/22 History Cholecalciferol [Vitamin D3 (25 50 mcg PO DAILY@89907/05/21 09/06/22 History Mcg = 1000 Iu)] Melatonin 5 mg PO HS@209907/05/21 09/06/22 History Ubidecarenone [Co Q-10] 100 mg PO HS@209907/05/21 09/06/22 History Valproic Acid [Depakene] 250 mg PO DAILY@1500 07/05/21 09/06/22 History hydrALAZINE HCL [Apresoline] 100 mg PO TID@0900,1499,209907/05/21 09/06/22 History levETIRAcetam 1,000 mg PO BID@0900,209907/05/21 09/06/22 History Cetirizine HCl 10 mg PO HS@209907/14/21 09/06/22 History Valproic Acid [Depakene] 500 mg PO DAILY@0900,209907/14/21 09/06/22 History Vit C/E/Zn/Coppr/Lutein/Zeaxan 1 cap PO DAILY@89907/14/21 09/06/22 History [Preservision Areds 2 Softgel] metFORMIN HCL 500 mg PO BID@0900,1900 09/12/21 09/06/22 History Cyanocobalamin [Vitamin B-12] 500 mcg PO DAILY@89901/16/22 09/06/22 History Multivit-Min/FA/Lycopen/Lutein 1 tab PO DAILY@89905/14/23 05/14/23 History [Centrum Silver Tablet] Venlafaxine HCl ER [Effexor Xr] 150 mg PO DAILY@0900 05/14/23 05/14/23 History metFORMIN HCL [Glucophage] 1,000 mg PO DAILY@1900 05/14/23 05/14/23 History Allergies Allergy/AdvReac Type Severity Reaction Status Date / Time nitroglycerin AdvReac Severe severe Verified 05/14/23 07:59 [From Nitro-Bid] headaches. Sulfa (Sulfonamide AdvReac Severe severe Verified 05/14/23 07:59 Antibiotics) headaches Physical Exam Vitals: Vital Signs Temp Pulse Resp BP Pulse Ox 05/14/23 07:28 98.5 F 79 16 136/76 97 05/14/23 06:36 98.2 F 05/14/23 06:00 83 18 122/68 96 05/14/23 01:00 99.8 F H 98 16 119/78 96 05/13/23 22:52 99.1 F 97 16 131/84 96 Intake and Output 05/13/23 05/14/23 05/14/23 22:59 06:59 14:59 Other: Weight 98.883 kg 98.883 kg In general patient is alert and oriented x 3 in no distress HEENT head normocephalic and atraumatic Neck is supple no JVD no goiter no lymphadenopathy no carotid bruit Chest examination is clear to auscultation no crackles no wheezing Cardiac exam reveals regular heart sounds S1 and S2 no gallops no murmurs Abdomen is soft nontender no organomegaly with normal bowel sounds Extremity exam reveals no edema no cyanosis or clubbing Neurological examination reveals no gross focal deficits Results CBC & Chem 7: 05/13/23 23:49 05/13/23 23:49 Labs: Abnormal Lab Results - Last 24 Hours (Table) 05/13/23 05/13/23 05/13/23 Range/Units 23:49 23:49 23:49 WBC 12.4 H (3.8-10.6) k/uL Plt Count 72 L D (150-450) k/uL Neutrophils # 10.3 H (1.3-7.7) k/uL Sodium 134 L (137-145) mmol/L Glucose 257 H (74-99) mg/dL POC Glucose (mg/dL) (70-110) mg/dL Plasma Lactic Acid Jass 4.9 H* (0.7-2.0) mmol/L 05/14/23 05/14/23 Range/Units 03:12 07:55 WBC (3.8-10.6) k/uL Plt Count (150-450) k/uL Neutrophils # (1.3-7.7) k/uL Sodium (137-145) mmol/L Glucose (74-99) mg/dL POC Glucose (mg/dL) 199 H (70-110) mg/dL Plasma Lactic Acid Jass 2.4 H* (0.7-2.0) mmol/L Thrombosis Risk Factor Assmnt - Choose All That Apply Each Risk Factor Represents 3 Points: Age 75 years or older Thrombosis Risk Factor Assessment Total Risk Factor Score: 3 Thrombosis Risk Factor Assessment Level: Moderate Risk Assessment and Plan Plan: Gastroenteritis with nausea vomiting and diarrhea Elevated lactic acid Leukocytosis, on presentation Severe generalized weakness Underlying history of hypertension Underlying history of hyperlipidemia Underlying history of qyn-uvtqdgz-lspoklmuq diabetes mellitus Previous history of subdural hematoma in April of 2020 with surgery. Underlying history of seizure disorder At this time patient is admitted to medical floor He was started on IV fluid Home medications reviewed and reordered, at this time will hold metformin due to diarrhea and elevated lactic acid Will check hemoglobin A1c, Keppra level, valproic acid level, TSH, vitamin B12 level Neurology consultation was requested Physical therapy and occupational therapy consult requested Will follow closely
[2023-05-14] MEDS: VENLAFAXINE HCL ER 150 MG CAP PO SCH (09:21)
[2023-05-14] MEDS: CHOLECALCIFEROL 25 MCG (1000 IU) TABLET PO SCH (09:21)
[2023-05-14] MEDS: CYANOCOBALAMIN 500 MCG TAB PO SCH (09:21)
[2023-05-14] MEDS: MULTIVITAMINS, THERA 1 EACH TAB PO SCH (09:22)
[2023-05-14] MEDS: hydrALAZINE HCL 50 MG TAB PO SCH ×3 (09:22→21:03)
[2023-05-14] MEDS: levETIRAcetam 500 MG TAB PO SCH ×2 (09:22→21:03)
[2023-05-14] MEDS: VALPROIC ACID ORAL SOLN 250 MG/5 ML CUP PO SCH ×3 (09:23→19:39)
[2023-05-14 12:34] LABS: Glucose,Whole Blood 275 mg/dL (70-110)
--- NOTE | 2023-05-14 13:21 | P.CNNES ---
History of Present Illness Consult date: 05/14/23 Requesting physician: Stef Ortiz Reason for Consult: weakness History of Present Illness: This is a 77-year-old gentleman with history of subdural on the left side due to fall in 04/2020status post surgery and as a result seizure but is under control, diabetes mellitus, hypertension who presented emergency department because of generalized weakness and diarrhea. Patient is accompanied with his was at bedside. It seems that the patient has been having diarrhea for the last 2 days and per the his metformin was being adjusted during that time. As a result he was having generalized weakness as a result. Patient denies of any fever, headaches, any focal weakness, numbness. Per the patient since the patient has received the hydration in the hospital his strength has drastically improved. Patient is complaining of some abdominal pain. Again he denies of any headache or any neurological issues. Patient follows up with Dr. Stone for his neurological care/seizure management and per seizure are under control. Some other workup during his hospital visit consisted of: Patient had one low-grade fever of 99.8 otherwise otherwise been afebrile Initial white blood cells 12.4 minimally elevated the neutrophilic and he has thrombocytopenia Sodium is 134, glucose is 257, a pleasant like a venous 4.9 repeated 2.4. Otherwise rest of that comes to panel is unremarkable CT the head is reported as no acute intracranial abnormality. I personally reviewed this. Head and I agree there is no acute or subacute ischemia. There is no bleed. The patient has old left frontal craniotomy Review of Systems Review of system: The 12 point system was reviewed and apparent positive and negative per HPI. Past Medical History Past Medical History: CVA/TIA, Diabetes Mellitus, Hearing Disorder / Deafness, H ypertension, Seizure Disorder Additional Past Medical History / Comment(s): HX TRIPPED & HIT HIS HEAD APRIL 2020 HAD INTRACRAINIAL SUBDURAL HEMATOMA AND DELAYED SURGERY-(dizziness developed 12 days later, surgery delayed then due to being on blood thinner). HX OF SEIZURES AFTER HEAD INJURY-(LAST SEIZURE 05/2020). STATES HANDS SHAKE. BOTH LEGS SHAKE, balance problems, WEAKNESS BILATERAL LEGS. PAIN LOWER BACK FOR OVER 1 YEAR-PAIN WITH WALKING. Hard of hearing. History of Any Multi-Drug Resistant Organisms: None Reported Past Surgical History: Appendectomy, Orthopedic Surgery Additional Past Surgical History / Comment(s): Hand surgery, arthroscopy surgery (right X2, left X3), SURGERY FOR INTRACRANIAL SUBDURAL HEMATOMA (MAY 2020).,[facility] Procedure, bilateral cataract surgery. Past Anesthesia/Blood Transfusion Reactions: No Reported Reaction Past Psychological History: Depression Smoking Status: Never smoker Past Alcohol Use History: Rare Past Drug Use History: None Reported - Past Family History Mother Family Medical History: No Reported History Medications and Allergies Home Medications Medication Instructions Recorded Confirmed Type Atorvastatin [Lipitor] 40 mg PO HS@209907/05/21 05/14/23 History Cholecalciferol [Vitamin D3 (25 50 mcg PO DAILY@89907/05/21 05/14/23 History Mcg = 1000 Iu)] Melatonin 5 mg PO HS@209907/05/21 05/14/23 History Ubidecarenone [Co Q-10] 100 mg PO HS@209907/05/21 05/14/23 History Valproic Acid [Depakene] 250 mg PO DAILY@1500 07/05/21 05/14/23 History hydrALAZINE HCL [Apresoline] 100 mg PO TID@0900,1499,209907/05/21 05/14/23 History levETIRAcetam 1,000 mg PO BID@0900,209907/05/21 05/14/23 History Cetirizine HCl 10 mg PO HS@209907/14/21 05/14/23 History Valproic Acid [Depakene] 500 mg PO DAILY@0900,209907/14/21 05/14/23 History Vit C/E/Zn/Coppr/Lutein/Zeaxan 1 cap PO DAILY@89907/14/21 05/14/23 History [Preservision Areds 2 Softgel] metFORMIN HCL 500 mg PO DAILY@89909/12/21 05/14/23 History Cyanocobalamin [Vitamin B-12] 1,000 mcg PO DAILY@89901/16/22 05/14/23 History Multivit-Min/FA/Lycopen/Lutein 1 tab PO DAILY@89905/14/23 05/14/23 History [Centrum Silver Tablet] Venlafaxine HCl ER [Effexor Xr] 150 mg PO DAILY@89905/14/23 05/14/23 History metFORMIN HCL [Glucophage] 1,000 mg PO DAILY@1900 05/14/23 05/14/23 History Allergies Allergy/AdvReac Type Severity Reaction Status Date / Time nitroglycerin AdvReac Severe severe Verified 05/14/23 07:59 [From Nitro-Bid] headaches. Sulfa (Sulfonamide AdvReac Severe severe Verified 05/14/23 07:59 Antibiotics) headaches Physical Examination - Vital Signs Vital Signs: Vital Signs Temp Pulse Pulse Resp BP BP Pulse Ox 05/14/23 07:45 98.2 F 81 16 126/93 97 05/14/23 07:28 98.5 F 79 16 136/76 97 05/14/23 06:36 98.2 F 05/14/23 06:00 83 18 122/68 96 05/14/23 01:00 99.8 F H 98 16 119/78 96 05/13/23 22:52 99.1 F 97 16 131/84 96 Intake and Output 05/13/23 05/14/23 05/14/23 22:59 06:59 14:59 Intake Total 118 Balance 118 Intake: Oral 118 Other: Voiding Method Urinal Weight 98.883 kg 98.883 kg GENERAL: The patient is lying in bed and is not in acute distress. NEUROLOGICAL: Higher mental function: The patient is awake, alert, oriented to self, place and time. Patient is following commands. No aphasia and no neglect. Cranial nerves: The pupils are round, equal and reactive to light and accommodation. Visual soto are full to confrontation throughout. Extraocular movement is intact no nystagmus is noted. Facial sensation is normal to touch throughout. The facial strength is normal throughout. Hearing is mildly decreased bilaterally to hand rub. Tongue is midline and moved [id number] without any difficulty. No dysarthria is noted. Shoulder shrug is normal bilaterally. Motor: The strength is left lower is 4+ mostly distal with left foot (per old and was worse prior to ED and improved after hydration). Otherwise 5 over 5 throughout. Normal tone and bulk. Cerebellum: Normal finger to nose bilaterally and normal heel to ferraro on right but left unable to assess because of old weakness. Sensation: Sensation is normal to touch throughout. Reflexes (right/left): 2+ throughout uppers while lowers are 1+ Plantars are mute bilaterally. Results - Laboratory Findings CBC and BMP: 05/13/23 23:49 05/13/23 23:49 Abnormal Lab Findings: Abnormal Labs 05/13/23 05/13/23 05/13/23 23:49 23:49 23:49 WBC 12.4 H Plt Count 72 L D Neutrophils # 10.3 H Sodium 134 L Glucose 257 H POC Glucose (mg/dL) Plasma Lactic Acid Jass 4.9 H* 05/14/23 05/14/23 05/14/23 03:12 07:55 12:32 WBC Plt Count Neutrophils # Sodium Glucose POC Glucose (mg/dL) 199 H 275 H Plasma Lactic Acid Jass 2.4 H* Assessment and Plan Assessment: This is a 77-year-old gentleman who presented because of diarrhea for the past 2 days and per his Metformin was being adjusted recently who also has abdominal pain and developed generalized weakness as result. After hydration he feels much better. In our facility he has minimal fever one time but denies any headache, confusion, new focal weakness. His seizure has been under control for past 3 years. Acute diarrhea with abdominal pain possible due to medication effect (metformin) Generalized weakness due to above and improved with hydration. Low grade fever one time with slight leukocytosis rule out any underlying infection (abdominal). I feel unlikely central causes since per no confusion, focal weakness or any new neurological issues History of left subdural and April 2022 to fall status post surgical resection in which she had the left frontal craniotomy History of seizure due to the subdural in 2019 and that's controlled with the Ke ppra and valproic acid Diabetes mellitus Hypertension Plan: Recent CT is negative for any acute or subacute ischemia Patient to continue his home antiepileptic drugs: Keppra 1 g bid and Valproic acid 750mg qam and 500mg qhs (per nurse he will be taking his home medication for Valproic acid since we do not carry PO version and is refusing for him to take liquid form). Primary team ordered TSH, vitamin B12, hemoglobin A1c. I ordered CK level. Consulted the infection disease because of his fever I'll hold off pursuing any further management such as MRI of the brain or EEG since patient does not have any confusions headache focal deficit for me to pursue additional testing but if he does will be pusue it. Defer the rest of the medical measure the primary team Upon discharge recommend the patient to follow-up with his neurologist as an outpatient Dr. Stone. Plan discussed with the patient and his who is at bedside as well as his nurse. Thank you for the consultation. Time with Patient: Greater than 30
[2023-05-14 13:33] LABS: C Reactive Protein 2.2 mg/dL (<1.0)
[2023-05-14] MEDS: VIT A,C & E-LUTEIN-MINERALS 1 EACH TAB PO SCH (14:53)
[2023-05-14] MEDS ORDERED: DEXTROSE 50% SYRINGE 50 ML IVP PRN ×2 (15:51)
[2023-05-14 17:10] LABS: Glucose,Whole Blood 266 mg/dL (70-110)
[2023-05-14] MEDS: INSULIN ASPART (NovoLOG) 100 UNIT/ML VIAL SQ SCH ×2 (18:00→21:04)
[2023-05-14 20:44] LABS: Glucose,Whole Blood 241 mg/dL (70-110)
[2023-05-14] MEDS: PATIENT'S OWN (Ubidecarenone [Co Q-10] 100 MG Capsule) PO SCH (20:59)
[2023-05-14] MEDS: MELATONIN 5 MG TABLET PO SCH (21:03)
--- NOTE | 2023-05-14 21:52 | P.CONS ---
History of Present Illness - Reason for Consult Consult date: 05/14/23 Fever Requesting physician: Seun Coburn - Chief Complaint Weakness x one day - History of Present Illness Patient is a 77-year male with a past medical history negative for diabetes mellitus hypertension CVA TIA seizure disorder did have a intracranial/subdural hematoma and delayed surgery presenting to the hospital last night for evaluation of weakness symptom has been going on for a day before presentation to the hospital and the patient mentioned he felt profoundly weak throughout the day patient denies having any headache or URI symptoms patient denies having any chest pain or shortness of air he did have some cough but no sputum production no nausea vomiting no abdominal pain no diarrhea no urinary symptoms no joint swelling did feel dizzy with the same with the patient was evaluated on presentation the hospital patient did have low-grade fever of 99.8 F patient was not tachycardic hypotensive or hypoxic did have white count 12.4 with a left shift creatinine was normal lactic acid was elevated liver enzymes are normal CRP 2.2 procalcitonin was 0.10 urine has been negative patient did have a chest x-ray small left effusion and lingular atelectasis CT of the brain no acute intracranial abnormality CT abdominal pelvis no acute findings in the abdominal pelvis infectious disease was consulted for further management regarding the fever and infection Review of Systems Positive point and negatives has been mentioned in the HPI, complete review of systems was performed and all other systems are negative Past Medical History Past Medical History: CVA/TIA, Diabetes Mellitus, Hearing Disorder / Deafness, Hypertension, Seizure Disorder Additional Past Medical History / Comment(s): HX TRIPPED & HIT HIS HEAD APRIL 2020 HAD INTRACRAINIAL SUBDURAL HEMATOMA AND DELAYED SURGERY-(dizziness developed 12 days later, surgery delayed then due to being on blood thinner). HX OF SEIZURES AFTER HEAD INJURY-(LAST SEIZURE 05/2020). STATES HANDS SHAKE. BOTH LEGS SHAKE, balance problems, WEAKNESS BILATERAL LEGS. PAIN LOWER BACK FOR OVER 1 YEAR-PAIN WITH WALKING. Hard of hearing. History of Any Multi-Drug Resistant Organisms: None Reported Past Surgical History: Appendectomy, Orthopedic Surgery Additional Past Surgical History / Comment(s): Hand surgery, arthroscopy surgery (right X2, left X3), SURGERY FOR INTRACRANIAL SUBDURAL HEMATOMA (MAY 2020).,[facility] Procedure, bilateral cataract surgery. Past Anesthesia/Blood Transfusion Reactions: No Reported Reaction Past Psychological History: Depression Smoking Status: Never smoker Past Alcohol Use History: Rare Past Drug Use History: None Reported - Past Family History Mother Family Medical History: No Reported History Medications and Allergies Home Medications Medication Instructions Recorded Confirmed Type Atorvastatin [Lipitor] 40 mg PO HS@209907/05/21 05/14/23 History Cholecalciferol [Vitamin D3 (25 50 mcg PO DAILY@89907/05/21 05/14/23 History Mcg = 1000 Iu)] Melatonin 5 mg PO HS@209907/05/21 05/14/23 History Ubidecarenone [Co Q-10] 100 mg PO HS@209907/05/21 05/14/23 History Valproic Acid [Depakene] 250 mg PO DAILY@1500 07/05/21 05/14/23 History hydrALAZINE HCL [Apresoline] 100 mg PO TID@0900,1499,209907/05/21 05/14/23 History levETIRAcetam 1,000 mg PO BID@0900,209907/05/21 05/14/23 History Cetirizine HCl 10 mg PO HS@209907/14/21 05/14/23 History Valproic Acid [Depakene] 500 mg PO DAILY@0900,209907/14/21 05/14/23 History Vit C/E/Zn/Coppr/Lutein/Zeaxan 1 cap PO DAILY@89907/14/21 05/14/23 History [Preservision Areds 2 Softgel] metFORMIN HCL 500 mg PO DAILY@89909/12/21 05/14/23 History Cyanocobalamin [Vitamin B-12] 1,000 mcg PO DAILY@89901/16/22 05/14/23 History Multivit-Min/FA/Lycopen/Lutein 1 tab PO DAILY@89905/14/23 05/14/23 History [Centrum Silver Tablet] Venlafaxine HCl ER [Effexor XR] 150 mg PO DAILY@89905/14/23 05/14/23 History metFORMIN HCL [Glucophage] 1,000 mg PO DAILY@189905/14/23 05/14/23 History Cefuroxime [Ceftin] 250 mg PO BID 5 Days #10 tab 05/16/23 Rx Allergies Allergy/AdvReac Type Severity Reaction Status Date / Time nitroglycerin AdvReac Severe severe Verified 05/14/23 07:59 [From Nitro-Bid] headaches. Sulfa (Sulfonamide AdvReac Severe severe Verified 05/14/23 07:59 Antibiotics) headaches Physical Exam Vitals: Vital Signs Temp Pulse Pulse Resp BP BP Pulse Ox 05/14/23 20:00 98.3 F 76 16 112/70 97 05/14/23 15:00 98.2 F 77 16 106/67 96 05/14/23 14:58 79 112/69 05/14/23 07:45 98.2 F 81 16 126/93 97 05/14/23 07:28 98.5 F 79 16 136/76 97 05/14/23 06:36 98.2 F 05/14/23 06:00 83 18 122/68 96 05/14/23 01:00 99.8 F H 98 16 119/78 96 05/13/23 22:52 99.1 F 97 16 131/84 96 Intake and Output 05/14/23 05/14/23 05/14/23 06:59 14:59 22:59 Intake Total 236 118 Output Total 225 500 Balance 11 -382 Intake: Oral 236 118 Output: Urine 225 500 Other: Voiding Method Urinal # Voids 1 # Bowel Movements 1 Weight 98.883 kg GENERAL DESCRIPTION: Elderly lying in bed, no distress. No tachypnea or accessory muscle of respiration use. HEENT: Shows Pallor , no scleral icterus. Oral mucous membrane is dry. No pha ryngeal erythema or thrush NECK: Trachea central, no thyromegaly. LUNGS: Unlabored breathing. Decreased breath sound at the base. No wheeze or crackle. HEART: S1, S2, regular rate and rhythm. No loud murmur ABDOMEN: Soft, no tenderness , guarding or rigidity, no organomegaly EXTREMITIES: No edema of feet. SKIN: No rash, no masses palpable. NEUROLOGICAL: The patient is awake, alert, oriented x3, mood and affect normal. Results CBC & Chem 7: 05/16/23 05:24 05/16/23 05:24 Labs: Abnormal Lab Results - Last 24 Hours (Table) 05/13/23 05/13/23 05/13/23 Range/Units 23:49 23:49 23:49 WBC 12.4 H (3.8-10.6) k/uL Plt Count 72 L D (150-450) k/uL Neutrophils # 10.3 H (1.3-7.7) k/uL Sodium 134 L (137-145) mmol/L Glucose 257 H (74-99) mg/dL POC Glucose (mg/dL) (70-110) mg/dL Hemoglobin A1c (<=6.0) % Plasma Lactic Acid Jass 4.9 H* (0.7-2.0) mmol/L C-Reactive Protein (<1.0) mg/dL Vitamin B12 (200.0-944.0) pg/mL Procalcitonin (0.02-0.09) ng/mL 05/14/23 05/14/23 05/14/23 Range/Units 03:12 07:55 12:00 WBC (3.8-10.6) k/uL Plt Count (150-450) k/uL Neutrophils # (1.3-7.7) k/uL Sodium (137-145) mmol/L Glucose (74-99) mg/dL POC Glucose (mg/dL) 199 H (70-110) mg/dL Hemoglobin A1c (<=6.0) % Plasma Lactic Acid Jass 2.4 H* (0.7-2.0) mmol/L C-Reactive Protein (<1.0) mg/dL Vitamin B12 (200.0-944.0) pg/mL Procalcitonin 0.10 H (0.02-0.09) ng/mL 05/14/23 05/14/23 05/14/23 Range/Units 12:32 12:45 12:45 WBC (3.8-10.6) k/uL Plt Count (150-450) k/uL Neutrophils # (1.3-7.7) k/uL Sodium (137-145) mmol/L Glucose (74-99) mg/dL POC Glucose (mg/dL) 275 H (70-110) mg/dL Hemoglobin A1c 8.4 H (<=6.0) % Plasma Lactic Acid Jass (0.7-2.0) mmol/L C-Reactive Protein 2.2 H (<1.0) mg/dL Vitamin B12 1215.0 H (200.0-944.0) pg/mL Procalcitonin (0.02-0.09) ng/mL 05/14/23 05/14/23 Range/Units 17:09 20:43 WBC (3.8-10.6) k/uL Plt Count (150-450) k/uL Neutrophils # (1.3-7.7) k/uL Sodium (137-145) mmol/L Glucose (74-99) mg/dL POC Glucose (mg/dL) 266 H 241 H (70-110) mg/dL Hemoglobin A1c (<=6.0) % Plasma Lactic Acid Jass (0.7-2.0) mmol/L C-Reactive Protein (<1.0) mg/dL Vitamin B12 (200.0-944.0) pg/mL Procalcitonin (0.02-0.09) ng/mL Assessment and Plan (1) Pneumonia Status: Acute Code(s): J18.9 - PNEUMONIA, UNSPECIFIED ORGANISM SNOMED Code(s): 865899406 Plan: 1patient was in the hospital with extreme weakness patient did have a low-grade fever of 99.8 F also have a elevated white count with a left shift, however no obvious focus of infection except for left-sided effusion and minimal infiltrate and the patient did have minimal cough concern for possible pneumonia 2we will check blood cultures and inflammatory markers 3-empirically add Rocephin and Zithromax while waiting for the work-up to be completed We will follow on clinical condition and cultures to further adjust medication if needed Thank you for this consultation we will follow the patient along with you Dictation was produced using [employer] dictation software. please excuse any grammatical, word or spelling errors. Time with Patient: Greater than 30
[2023-05-15] MEDS: SODIUM CHLORIDE 0.9% 1,000 ML IV SCH ×3 (03:01→20:02)
[2023-05-15 05:53] LABS: Glucose,Whole Blood 202 mg/dL (70-110)
[2023-05-15] MEDS: INSULIN ASPART (NovoLOG) 100 UNIT/ML VIAL SQ SCH ×4 (06:05→20:08)
[2023-05-15] MEDS: CHOLECALCIFEROL 25 MCG (1000 IU) TABLET PO SCH (08:47)
[2023-05-15] MEDS: VIT A,C & E-LUTEIN-MINERALS 1 EACH TAB PO SCH (08:47)
[2023-05-15] MEDS: VENLAFAXINE HCL ER 150 MG CAP PO SCH (08:47)
[2023-05-15] MEDS: AZITHROMYCIN 250 MG TAB PO SCH (08:47)
[2023-05-15] MEDS: CYANOCOBALAMIN 500 MCG TAB PO SCH ×2 (08:47→08:49)
[2023-05-15] MEDS: MULTIVITAMINS, THERA 1 EACH TAB PO SCH (08:48)
[2023-05-15] MEDS: levETIRAcetam 500 MG TAB PO SCH ×2 (08:48→20:00)
[2023-05-15] MEDS: VALPROIC ACID ORAL SOLN 250 MG/5 ML CUP PO SCH ×2 (08:48→16:25)
[2023-05-15] MEDS: hydrALAZINE HCL 50 MG TAB PO SCH ×3 (08:48→20:00)
[2023-05-15 09:18] LABS: Blood Urea Nitrogen 9.8 mg/dL (9.0-27.0); Glucose 205 mg/dL (70-110)
[2023-05-15 09:19] LABS: ALT 19 U/L (10-49); AST 20 U/L (14-35); Albumin 3.6 d/dL (3.8-4.9); Alkaline Phosphatase 47 U/L (41-126); Calcium 8.5 mg/dL (8.7-10.3); Carbon Dioxide 24.2 mmol/L (21.6-31.8); Chloride 105 mmol/L (96-109); Globulin 1.8 d/dL (1.6-3.3); Magnesium 1.7 mg/dL (1.5-2.4); Phosphorus 3.5 mg/dL (2.4-5.1); Potassium 4.2 mmol/L (3.5-5.5); Sodium 139 mmol/L (135-145); Total Bilirubin 0.3 mg/dL (0.3-1.2); Total Protein 5.4 d/dL (6.2-8.2)
[2023-05-15 09:45] LABS: Basophils # (A) 0.04 X 10*3/uL (0.00-0.10); Basophils % (A) 0.4 %; Eosinophils % (A) 1.1 %; HCT 38.2 % (39.6-50.0); HGB 12.8 d/dL (13.0-17.0); Lymphocytes # (A) 1.92 X 10*3/uL (0.90-5.00); Lymphocytes % (A) 21.2 %; MCH 32.7 pg (27.0-32.0); MCHC 33.5 d/dL (32.0-37.0); MCV 97.4 FL (80.0-97.0); Mean Platelet Volume 11.7 FL (9.5-12.2); Monocytes # (A) 1.65 X 10*3/uL (0.20-1.00); Monocytes % (A) 18.2 %; NRBC Per 100 WBC 0 X 10*3/uL (0.00-0.01); Neutrophils % (A) 58.4 %; Platelet Count 144 X 10*3/uL (140-440); RBC 3.92 X 10*6/uL (4.40-5.60); RBC Morphology Normal (Normal); RDW 12.5 % (11.5-14.5); WBC 9.07 X 10*3/uL (4.50-10.00)
[2023-05-15 12:26] LABS: Glucose,Whole Blood 369 mg/dL (70-110)
--- NOTE | 2023-05-15 14:45 | P.PN ---
Subjective Progress Note Date: 05/15/23 The patient is seen at bedside and he is accompanied by his . Patient feels he is drastically much better today compared to initial presentation. No further diarrhea. Feels that the strength is again drastically better. Denies of any neurological issues. Objective - Vital Signs Vital signs: Vital Signs Temp 98.5 F 05/15/23 07:00 Pulse 68 05/15/23 07:00 Resp 18 05/15/23 07:00 BP 127/75 05/15/23 07:00 Pulse Ox 97 05/15/23 07:00 FiO2 Intake & Output 05/14/23 05/15/23 05/15/23 18:59 06:59 18:59 Intake Total 354 118 Output Total 725 500 Balance -371 -382 Weight 98.883 kg Intake: Oral 354 118 Output: Urine 725 500 Other: Voiding Method Urinal Urinal # Voids 1 3 1 # Bowel Movements 1 - Exam GENERAL: The patient is lying in bed and is not in acute distress. NEUROLOGICAL: Higher mental function: The patient is awake, alert, oriented to self, place and time. Patient is following commands. No aphasia and no neglect. Cranial nerves: The pupils are round, equal and reactive to light and accommo dation. Visual soto are full to confrontation throughout. Extraocular movement is intact no nystagmus is noted. Facial sensation is normal to touch throughout. The facial strength is normal throughout. Hearing is mildly decreased bilaterally to hand rub. Tongue is midline and moved [id number] without any difficulty. No dysarthria is noted. Shoulder shrug is normal bilaterally. Motor: The strength is left lower is 4+ mostly distal with left foot (per old and was worse prior to ED and improved after hydration). Otherwise 5 over 5 throughout. Normal tone and bulk. Cerebellum: Normal finger to nose bilaterally and normal heel to ferraro on right but left unable to assess because of old weakness. Sensation: Sensation is normal to touch throughout. Reflexes (right/left): 2+ throughout uppers while lowers are 1+ Plantars are mute bilaterally. Some other workup during his hospital visit consisted of: Valproic acid is 61. Keppra level is 35.7. TSH is 1.5 Vitamin B12 is 1215 CK level is 68. Hemoglobin A1c is 8.4. Sodium is 134, glucose is 257, a pleasant like a venous 4.9 repeated 2.4. Otherwise rest of that comes to panel is unremarkable CT the head is reported as no acute intracranial abnormality. I personally reviewed this. Head and I agree there is no acute or subacute ischemia. There is no bleed. The patient has old left frontal craniotomy - Labs CBC & Chem 7: 05/15/23 03:58 05/15/23 03:58 Labs: Abnormal Lab Results - Last 24 Hours (Table) 05/14/23 05/14/23 05/14/23 Range/Units 12:00 12:45 12:45 RBC (4.40-5.60) X 10*6/uL Hgb (13.0-17.0) d/dL Hct (39.6-50.0) % MCV (80.0-97.0) FL MCH (27.0-32.0) pg Monocytes # (0.20-1.00) X 10*3/uL BUN/Creatinine Ratio (12.00-20.00) Ratio Glucose (70-110) mg/dL POC Glucose (mg/dL) (70-110) mg/dL Hemoglobin A1c 8.4 H (<=6.0) % Calcium (8.7-10.3) mg/dL Total Protein (6.2-8.2) d/dL Albumin (3.8-4.9) d/dL Vitamin B12 1215.0 H (200.0-944.0) pg/mL Procalcitonin 0.10 H (0.02-0.09) ng/mL 05/14/23 05/14/23 05/15/23 Range/Units 17:09 20:43 03:58 RBC 3.92 L (4.40-5.60) X 10*6/uL Hgb 12.8 L (13.0-17.0) d/dL Hct 38.2 L (39.6-50.0) % MCV 97.4 H (80.0-97.0) FL MCH 32.7 H (27.0-32.0) pg Monocytes # 1.65 H (0.20-1.00) X 10*3/uL BUN/Creatinine Ratio (12.00-20.00) Ratio Glucose (70-110) mg/dL POC Glucose (mg/dL) 266 H 241 H (70-110) mg/dL Hemoglobin A1c (<=6.0) % Calcium (8.7-10.3) mg/dL Total Protein (6.2-8.2) d/dL Albumin (3.8-4.9) d/dL Vitamin B12 (200.0-944.0) pg/mL Procalcitonin (0.02-0.09) ng/mL 05/15/23 05/15/23 05/15/23 Range/Units 03:58 05:51 12:25 RBC (4.40-5.60) X 10*6/uL Hgb (13.0-17.0) d/dL Hct (39.6-50.0) % MCV (80.0-97.0) FL MCH (27.0-32.0) pg Monocytes # (0.20-1.00) X 10*3/uL BUN/Creatinine Ratio 9.80 L (12.00-20.00) Ratio Glucose 205 H (70-110) mg/dL POC Glucose (mg/dL) 202 H 369 H (70-110) mg/dL Hemoglobin A1c (<=6.0) % Calcium 8.5 L (8.7-10.3) mg/dL Total Protein 5.4 L (6.2-8.2) d/dL Albumin 3.6 L (3.8-4.9) d/dL Vitamin B12 (200.0-944.0) pg/mL Procalcitonin (0.02-0.09) ng/mL Assessment and Plan Assessment: This is a 77-year-old gentleman who presented because of diarrhea for the past 2 days and per his Metformin was being adjusted recently who also has abdominal pain and developed generalized weakness as result. After hydration he feels much better. In our facility he has minimal fever one time but denies any headache, confusion, new focal weakness. His seizure has been under control for past 3 years. Acute diarrhea with abdominal pain possible due to medication effect (metformin) Generalized weakness due to above and improved with hydration. Low grade fever one time with slight leukocytosis rule out any underlying infection (abdominal). 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 Hypertension Plan: Recent CT is negative for any acute or subacute ischemia Patient to continue his home antiepileptic drugs: Keppra 1 g bid and Valproic acid 750mg qam and 500mg qhs (per nurse he will be taking his home medication for Valproic acid since we do not carry PO version and is refusing for him to take liquid form). Consulted the infection disease because of his fever I'll hold off pursuing any further management such as MRI of the brain or EEG since patient does not have any confusions headache focal deficit for me to pursue additional testing but if he does will be pusue it. Defer the rest of the medical measure the primary team Upon discharge recommend the patient to follow-up with his neurologist as an outpatient Dr. Stone. Plan discussed with the patient and his who is at bedside as well as his nurse. There is no further neurological workup. We'll sign off. Please reconsult as needed. Time with Patient: Less than 30
--- NOTE | 2023-05-15 16:41 | P.PN ---
Subjective Progress Note Date: 05/15/23 Clemente Islas, is a 77-year-old male who presented to [facility] emergency room with a chief complaint of nausea vomiting diarrhea and severe generalized weakness. Patient stated that he started having nausea vomiting and diarrhea several days ago, he became increasingly weak, he was having headache. He was evaluated in the emergency room vital examination on presentation revealed a temperature of 99.1 pulse 97 respiration 16 and blood pressure 131/84 pulse ox 96% on room air Laboratory data revealed a white blood count of 12.4 hemoglobin 15.7 platelet count 72 sodium 134 potassium 4.4 chloride 98 CO2 24 BUN 16 creatinine 1.02 glucose 257 lactic acid was elevated at 4.9 troponin 0.012 urine analysis was normal. Testing in the emergency room revealed computed tomography scan of the brain revealed no acute intracranial abnormality, computed tomography scan of the abdomen and pelvis revealed no acute findings. EKG revealed sinus rhythm with right bundle branch block, and left anterior fascicular block. Chest x-ray revealed small left pleural effusion and lingular atelectasis. 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, patient underwent surgery at [facility], patient had subsequence seizures, he is currently maintained on seizure medications, past medical history also significant for hypertension, hyperlipidemia, dgu-mebdkjw-rbuqfnkkv diabetes mellitus, and decreased hearing On review of systems patient is alert and oriented 3 in no apparent distress he is complaining of some nausea at this time but no vomiting, there is no fever or chills no headache or dizziness no chest pain no shortness of breath no cough no vomiting no abdominal pain no diarrhea at this time no blood in stools no burning with urination no frequency or urgency and no hematuria, there is no weakness or numbness in any of the extremities he has generalized weakness. On 05/15/2023 patient was seen and examined on the medical floor he is alert and oriented 3 in no apparent distress he is feeling better than yesterday white blood count has normalized he is able to ambulate, he does not have any further diarrhea, there is no fever or chills no headache or dizziness no chest pain no shortness of breath no cough no nausea or vomiting no abdominal pain no diarrhea no blood in the stools no burning with urination no frequency or urgency and no hematuria. Input from infectious disease and neurology reviewed, continue was current medications at this time, will recheck chest x-ray and labs in a.m. if stable patient can be discharged to home tomorrow. Objective - Vital Signs Vital signs: Vital Signs Temp 98.5 F 05/15/23 07:00 Pulse 68 05/15/23 07:00 Resp 18 05/15/23 07:00 BP 127/75 05/15/23 07:00 Pulse Ox 97 05/15/23 07:00 FiO2 Intake & Output 05/14/23 05/15/23 05/15/23 18:59 06:59 18:59 Intake Total 354 118 Output Total 725 500 Balance -371 -382 Weight 98.883 kg Intake: Oral 354 118 Output: Urine 725 500 Other: Voiding Method Urinal Urinal # Voids 1 3 1 # Bowel Movements 1 - Exam In general patient is alert and oriented x 3 in no distress HEENT head normocephalic and atraumatic Neck is supple no JVD no goiter no lymphadenopathy no carotid bruit Chest examination is clear to auscultation no crackles no wheezing Cardiac exam reveals regular heart sounds S1 and S2 no gallops no murmurs Abdomen is soft nontender no organomegaly with normal bowel sounds Extremity exam reveals no edema no cyanosis or clubbing Neurological examination reveals no gross focal deficits - Labs CBC & Chem 7: 05/15/23 03:58 05/15/23 03:58 Labs: Abnormal Lab Results - Last 24 Hours (Table) 05/14/23 05/14/23 05/14/23 Range/Units 12:00 12:45 12:45 RBC (4.40-5.60) X 10*6/uL Hgb (13.0-17.0) d/dL Hct (39.6-50.0) % MCV (80.0-97.0) FL MCH (27.0-32.0) pg Monocytes # (0.20-1.00) X 10*3/uL BUN/Creatinine Ratio (12.00-20.00) Ratio Glucose (70-110) mg/dL POC Glucose (mg/dL) (70-110) mg/dL Hemoglobin A1c 8.4 H (<=6.0) % Calcium (8.7-10.3) mg/dL Total Protein (6.2-8.2) d/dL Albumin (3.8-4.9) d/dL Vitamin B12 1215.0 H (200.0-944.0) pg/mL Procalcitonin 0.10 H (0.02-0.09) ng/mL 05/14/23 05/14/23 05/15/23 Range/Units 17:09 20:43 03:58 RBC 3.92 L (4.40-5.60) X 10*6/uL Hgb 12.8 L (13.0-17.0) d/dL Hct 38.2 L (39.6-50.0) % MCV 97.4 H (80.0-97.0) FL MCH 32.7 H (27.0-32.0) pg Monocytes # 1.65 H (0.20-1.00) X 10*3/uL BUN/Creatinine Ratio (12.00-20.00) Ratio Glucose (70-110) mg/dL POC Glucose (mg/dL) 266 H 241 H (70-110) mg/dL Hemoglobin A1c (<=6.0) % Calcium (8.7-10.3) mg/dL Total Protein (6.2-8.2) d/dL Albumin (3.8-4.9) d/dL Vitamin B12 (200.0-944.0) pg/mL Procalcitonin (0.02-0.09) ng/mL 05/15/23 05/15/23 05/15/23 Range/Units 03:58 05:51 12:25 RBC (4.40-5.60) X 10*6/uL Hgb (13.0-17.0) d/dL Hct (39.6-50.0) % MCV (80.0-97.0) FL MCH (27.0-32.0) pg Monocytes # (0.20-1.00) X 10*3/uL BUN/Creatinine Ratio 9.80 L (12.00-20.00) Ratio Glucose 205 H (70-110) mg/dL POC Glucose (mg/dL) 202 H 369 H (70-110) mg/dL Hemoglobin A1c (<=6.0) % Calcium 8.5 L (8.7-10.3) mg/dL Total Protein 5.4 L (6.2-8.2) d/dL Albumin 3.6 L (3.8-4.9) d/dL Vitamin B12 (200.0-944.0) pg/mL Procalcitonin (0.02-0.09) ng/mL Assessment and Plan Plan: Gastroenteritis with nausea vomiting and diarrhea Elevated lactic acid Leukocytosis, on presentation Severe generalized weakness Underlying history of hypertension Underlying history of hyperlipidemia Underlying history of nfj-qquotgb-wdjhwstsm diabetes mellitus Previous history of subdural hematoma in April of 2020 with surgery. Underlying history of seizure disorder At this time patient is admitted to medical floor He was started on IV fluid Home medications reviewed and reordered, at this time will hold metformin due to diarrhea and elevated lactic acid Will check hemoglobin A1c, Keppra level, valproic acid level, TSH, vitamin B12 level Neurology consultation was requested Physical therapy and occupational therapy consult requested Will follow closely
[2023-05-15 17:26] LABS: Glucose,Whole Blood 398 mg/dL (70-110)
--- NOTE | 2023-05-15 17:52 | XR ---
EXAMINATION TYPE: XR chest 2V DATE OF EXAM: 05/15/2023 5:47 PM COMPARISON: Chest radiographs from 05/14/2023 TECHNIQUE: XR chest 2V Frontal and lateral views of the chest. CLINICAL INDICATION:Male, 77 years old with history of shortness of breath; FINDINGS: Lungs/Pleura: There is no evidence of pleural effusion, focal consolidation, or pneumothorax. Pulmonary vascularity: Unremarkable. Heart/mediastinum: Cardiomediastinal silhouette is unremarkable. Musculoskeletal: No acute osseous pathology. IMPRESSION: No acute cardiopulmonary disease/process.
[2023-05-15] MEDS: PATIENT'S OWN (Ubidecarenone [Co Q-10] 100 MG Capsule) PO SCH (19:47)
[2023-05-15] MEDS: MELATONIN 5 MG TABLET PO SCH (20:00)
[2023-05-15] MEDS: VALPROIC ACID 250MG CAP PO SCH (20:00)
[2023-05-15 20:06] LABS: Glucose,Whole Blood 223 mg/dL (70-110)
[2023-05-16] MEDS: SODIUM CHLORIDE 0.9% 1,000 ML IV SCH (00:12)
[2023-05-16 04:23] VITALS: RESP 16
[2023-05-16 06:06] LABS: Glucose,Whole Blood 234 mg/dL (70-110)
[2023-05-16] MEDS: INSULIN ASPART (NovoLOG) 100 UNIT/ML VIAL SQ SCH (06:20)
[2023-05-16 08:43] LABS: Basophils # (A) 0.02 X 10*3/uL (0.00-0.10); Basophils % (A) 0.3 %; Eosinophils # (A) 0.11 X 10*3/uL (0.04-0.35); Eosinophils % (A) 1.4 %; HGB 12.8 d/dL (13.0-17.0); Lymphocytes # (A) 1.45 X 10*3/uL (0.90-5.00); Lymphocytes % (A) 18.2 %; MCH 33.3 pg (27.0-32.0); MCHC 35.6 d/dL (32.0-37.0); MCV 93.8 FL (80.0-97.0); Mean Platelet Volume 11.1 FL (9.5-12.2); Monocytes # (A) 1.46 X 10*3/uL (0.20-1.00); Monocytes % (A) 18.3 %; NRBC Per 100 WBC 0 X 10*3/uL (0.00-0.01); Neutrophils # (A) 4.88 X 10*3/uL (1.80-7.70); Platelet Count 139 X 10*3/uL (140-440); RBC 3.84 X 10*6/uL (4.40-5.60); RDW 12.3 % (11.5-14.5); WBC 7.98 X 10*3/uL (4.50-10.00)
[2023-05-16 08:49] LABS: ALT 19 U/L (10-49); AST 18 U/L (14-35); Albumin 3.4 d/dL (3.8-4.9); Alkaline Phosphatase 42 U/L (41-126); Blood Urea Nitrogen 11.2 mg/dL (9.0-27.0); Calcium 8.4 mg/dL (8.7-10.3); Chloride 106 mmol/L (96-109); Globulin 1.7 d/dL (1.6-3.3); Glucose 223 mg/dL (70-110); Sodium 139 mmol/L (135-145); Total Bilirubin 0.3 mg/dL (0.3-1.2); Total Protein 5.1 d/dL (6.2-8.2)
[2023-05-16 08:55] VITALS: BP 125/72; PULSE 61; TEMP 97.9
[2023-05-16] MEDS: VIT A,C & E-LUTEIN-MINERALS 1 EACH TAB PO SCH (08:55)
[2023-05-16] MEDS: AZITHROMYCIN 250 MG TAB PO SCH (08:55)
[2023-05-16] MEDS: hydrALAZINE HCL 50 MG TAB PO SCH (08:55)
[2023-05-16] MEDS: levETIRAcetam 500 MG TAB PO SCH (08:55)
[2023-05-16] MEDS: MULTIVITAMINS, THERA 1 EACH TAB PO SCH (08:56)
[2023-05-16] MEDS: CHOLECALCIFEROL 25 MCG (1000 IU) TABLET PO SCH (08:56)
[2023-05-16] MEDS: CYANOCOBALAMIN 500 MCG TAB PO SCH (09:01)
[2023-05-16] MEDS: VENLAFAXINE HCL ER 150 MG CAP PO SCH (09:04)
[2023-05-16] MEDS: VALPROIC ACID 250MG CAP PO SCH (09:04)
--- NOTE | 2023-05-16 11:21 | P.DS ---
Providers Date of admission: 05/14/23 05:11 Expected date of discharge: 05/16/23 Attending physician: Stef Ortiz Consults: 05/14/23 08:45 Consult Physician Routine Consulting Provider: Cisco Bustos Consult Reason/Comments: weakness Do you want consulting provider notified?: Yes 05/14/23 12:26 Consult Physician Routine Consulting Provider: Tk Garcia Consult Reason/Comments: fever. Do you want consulting provider notified?: Yes Primary care physician: Aurora Nichols Hospital Course: Discharge diagnosis Gastroenteritis with nausea vomiting and diarrhea Elevated lactic acid Leukocytosis, on presentation Severe generalized weakness Underlying history of hypertension Underlying history of hyperlipidemia Underlying history of lsr-hviieux-lohndtdcl diabetes mellitus Previous history of subdural hematoma in April of 2020 with surgery. Underlying history of seizure disorder Hospital course Clemente Islas, is a 77-year-old male who presented to [facility] emergency room with a chief complaint of nausea vomiting diarrhea and severe generalized weakness. Patient stated that he started having nausea vomiting and diarrhea several days ago, he became increasingly weak, he was having headache. He was evaluated in the emergency room vital examination on presentation revealed a temperature of 99.1 pulse 97 respiration 16 and blood pressure 131/84 pulse ox 96% on room air Laboratory data revealed a white blood count of 12.4 hemoglobin 15.7 platelet count 72 sodium 134 potassium 4.4 chloride 98 CO2 24 BUN 16 creatinine 1.02 glucose 257 lactic acid was elevated at 4.9 troponin 0.012 urine analysis was normal. Testing in the emergency room revealed computed tomography scan of the brain r evealed no acute intracranial abnormality, computed tomography scan of the abdomen and pelvis revealed no acute findings. EKG revealed sinus rhythm with right bundle branch block, and left anterior fascicular block. Chest x-ray revealed small left pleural effusion and lingular atelectasis. 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, patient underwent surgery at [facility], patient had subsequence seizures, he is currently maintained on seizure medications, past medical history also significant for hypertension, hyperlipidemia, oca-spmtfes-jqkjilfdf diabetes mellitus, and decreased hearing On review of systems patient is alert and oriented 3 in no apparent distress he is complaining of some nausea at this time but no vomiting, there is no fever or chills no headache or dizziness no chest pain no shortness of breath no cough no vomiting no abdominal pain no diarrhea at this time no blood in stools no burning with urination no frequency or urgency and no hematuria, there is no weakness or numbness in any of the extremities he has generalized weakness. On 05/15/2023 patient was seen and examined on the medical floor he is alert and oriented 3 in no apparent distress he is feeling better than yesterday white blood count has normalized he is able to ambulate, he does not have any further diarrhea, there is no fever or chills no headache or dizziness no chest pain no shortness of breath no cough no nausea or vomiting no abdominal pain no diarrhea no blood in the stools no burning with urination no frequency or urgency and no hematuria. Input from infectious disease and neurology reviewed, continue was current medications at this time, will recheck chest x-ray and labs in a.m. if stable patient can be discharged to home tomorrow. On 05/16/2023 3 patient is alert and oriented 3. Patient reports significant improvement. Repeat chest x-ray completed yesterday showing no acute cardiopulmonary disease/process. Discussed case with infectious disease recommendations to discharge patient on Ceftin for 5 days. Patient denies chest pain or shortness of breath. Patient denies nausea vomiting or diarrhea. Patient denies urinary burning or frequency Patient Condition at Discharge: Stable Plan - Discharge Summary Discharge Rx Participant: No New Discharge Prescriptions: New Cefuroxime [Ceftin] 250 mg PO BID 5 Days #10 tab Continue Melatonin 5 mg PO HS@2100 levETIRAcetam 1,000 mg PO BID@0900,2100 hydrALAZINE HCL [Apresoline] 100 mg PO TID@0900,1500,2100 Ubidecarenone [Co Q-10] 100 mg PO HS@2100 Valproic Acid [Depakene] 500 mg PO DAILY@0900,2100 Cyanocobalamin [Vitamin B-12] 1,000 mcg PO DAILY@0900 Venlafaxine HCl ER [Effexor XR] 150 mg PO DAILY@0900 Multivit-Min/FA/Lycopen/Lutein [Centrum Silver Tablet] 1 tab PO DAILY@0900 Cholecalciferol [Vitamin D3 (25 Mcg = 1000 Iu)] 50 mcg PO DAILY@0900 Atorvastatin [Lipitor] 40 mg PO HS@2100 Valproic Acid [Depakene] 250 mg PO DAILY@1500 Vit C/E/Zn/Coppr/Lutein/Zeaxan [Preservision Areds 2 Softgel] 1 cap PO DAILY@899 Cetirizine HCl 10 mg PO HS@2099 metFORMIN HCL 500 mg PO DAILY@899 metFORMIN HCL [Glucophage] 1,000 mg PO DAILY@1900 Discharge Medication List Atorvastatin [Lipitor] 40 mg PO HS@209907/05/21 [History] Cholecalciferol [Vitamin D3 (25 Mcg = 1000 Iu)] 50 mcg PO DAILY@89907/05/21 [History] Melatonin 5 mg PO HS@209907/05/21 [History] Ubidecarenone [Co Q-10] 100 mg PO HS@209907/05/21 [History] Valproic Acid [Depakene] 250 mg PO DAILY@149907/05/21 [History] hydrALAZINE HCL [Apresoline] 100 mg PO TID@899,1499,209907/05/21 [History] levETIRAcetam 1,000 mg PO BID@899,209907/05/21 [History] Cetirizine HCl 10 mg PO HS@209907/14/21 [History] Valproic Acid [Depakene] 500 mg PO DAILY@899,209907/14/21 [History] Vit C/E/Zn/Coppr/Lutein/Zeaxan [Preservision Areds 2 Softgel] 1 cap PO DAILY@89907/14/21 [History] metFORMIN HCL 500 mg PO DAILY@89909/12/21 [History] Cyanocobalamin [Vitamin B-12] 1,000 mcg PO DAILY@89901/16/22 [History] Multivit-Min/FA/Lycopen/Lutein [Centrum Silver Tablet] 1 tab PO DAILY@89905/14/23 [History] Venlafaxine HCl ER [Effexor XR] 150 mg PO DAILY@89905/14/23 [History] metFORMIN HCL [Glucophage] 1,000 mg PO DAILY@189905/14/23 [History] Cefuroxime [Ceftin] 250 mg PO BID 5 Days #10 tab 05/16/23 [Rx] Follow up Appointment(s)/Referral(s): Aurora Nichols MD [Primary Care Provider] - 1-2 days Activity/Diet/Wound Care/Special Instructions: Activity as tolerated Diet heart healthy Discharge Disposition: HOME SELF-CARE
[2023-05-16] MEDS ORDERED: VALPROIC ACID 250MG CAP PO SCH (15:00)
--- NOTE | 2023-05-22 14:39 | P.PN ---
Subjective Progress Note Date: 05/15/23 Principal diagnosis: Fever possible pneumonia Patient is a 77-year male with a past medical history negative for diabetes mellitus hypertension CVA TIA seizure disorder did have a intracranial/subdural hematoma and delayed surgery presenting to the hospital last night for evaluation of weakness, patient did have a low-grade fever, chest x-ray left lingular infiltrate concerning for pneumonia on today's evaluation that is 05/15/2023, the patient denies any fever or any chills, the patient is feeling better his breathing comfortably did have mild cough no nausea no vomiting and abdominal pain and no diarrhea On today's blood work that is 05/15/2023 the patient white count has normalized down to 9.07, creatinine is 1.0, pro-calcitonin is 0.10 urine was negative Objective - Vital Signs Vital signs: Vital Signs Temp 98.5 F 05/15/23 07:00 Pulse 68 05/15/23 07:00 Resp 18 05/15/23 07:00 BP 127/75 05/15/23 07:00 Pulse Ox 97 05/15/23 07:00 FiO2 Intake & Output 05/14/23 05/15/23 05/15/23 18:59 06:59 18:59 Intake Total 354 Output Total 725 Balance -371 Weight 98.883 kg Intake: Oral 354 Output: Urine 725 Other: Voiding Method Urinal Urinal # Voids 1 3 # Bowel Movements 1 - Exam GENERAL DESCRIPTION: Middle-aged male lying in bed, no distress. No tachypnea or accessory muscle of respiration use. HEENT: Shows Pallor , no scleral icterus. Oral mucous membrane is dry. No pharyngeal erythema or thrush NECK: Trachea central, no thyromegaly. LUNGS: Unlabored breathing. Clear to auscultation anteriorly. No wheeze or crackle. HEART: S1, S2, regular rate and rhythm. No loud murmur ABDOMEN: Soft, no tenderness , guarding or rigidity, no organomegaly EXTREMITIES: No edema of feet. SKIN: No rash, no masses palpable. NEUROLOGICAL: The patient is awake, alert, oriented x3, mood and affect normal. - Labs CBC & Chem 7: 05/16/23 05:24 05/16/23 05:24 Labs: Abnormal Lab Results - Last 24 Hours (Table) 05/14/23 05/14/23 05/14/23 Range/Units 12:00 12:32 12:45 RBC (4.40-5.60) X 10*6/uL Hgb (13.0-17.0) d/dL Hct (39.6-50.0) % MCV (80.0-97.0) FL MCH (27.0-32.0) pg Monocytes # (0.20-1.00) X 10*3/uL BUN/Creatinine Ratio (12.00-20.00) Ratio Glucose (70-110) mg/dL POC Glucose (mg/dL) 275 H (70-110) mg/dL Hemoglobin A1c (<=6.0) % Calcium (8.7-10.3) mg/dL C-Reactive Protein 2.2 H (<1.0) mg/dL Total Protein (6.2-8.2) d/dL Albumin (3.8-4.9) d/dL Vitamin B12 1215.0 H (200.0-944.0) pg/mL Procalcitonin 0.10 H (0.02-0.09) ng/mL 05/14/23 05/14/23 05/14/23 Range/Units 12:45 17:09 20:43 RBC (4.40-5.60) X 10*6/uL Hgb (13.0-17.0) d/dL Hct (39.6-50.0) % MCV (80.0-97.0) FL MCH (27.0-32.0) pg Monocytes # (0.20-1.00) X 10*3/uL BUN/Creatinine Ratio (12.00-20.00) Ratio Glucose (70-110) mg/dL POC Glucose (mg/dL) 266 H 241 H (70-110) mg/dL Hemoglobin A1c 8.4 H (<=6.0) % Calcium (8.7-10.3) mg/dL C-Reactive Protein (<1.0) mg/dL Total Protein (6.2-8.2) d/dL Albumin (3.8-4.9) d/dL Vitamin B12 (200.0-944.0) pg/mL Procalcitonin (0.02-0.09) ng/mL 05/15/23 05/15/23 05/15/23 Range/Units 03:58 03:58 05:51 RBC 3.92 L (4.40-5.60) X 10*6/uL Hgb 12.8 L (13.0-17.0) d/dL Hct 38.2 L (39.6-50.0) % MCV 97.4 H (80.0-97.0) FL MCH 32.7 H (27.0-32.0) pg Monocytes # 1.65 H (0.20-1.00) X 10*3/uL BUN/Creatinine Ratio 9.80 L (12.00-20.00) Ratio Glucose 205 H (70-110) mg/dL POC Glucose (mg/dL) 202 H (70-110) mg/dL Hemoglobin A1c (<=6.0) % Calcium 8.5 L (8.7-10.3) mg/dL C-Reactive Protein (<1.0) mg/dL Total Protein 5.4 L (6.2-8.2) d/dL Albumin 3.6 L (3.8-4.9) d/dL Vitamin B12 (200.0-944.0) pg/mL Procalcitonin (0.02-0.09) ng/mL Assessment and Plan (1) Fever Status: Acute Code(s): R50.9 - FEVER, UNSPECIFIED SNOMED Code(s): 659037843 (2) Leukocytosis Status: Acute Code(s): D72.829 - ELEVATED WHITE BLOOD CELL COUNT, UNSPECIFIED SNOMED Code(s): 045299441 (3) Pneumonia Status: Acute Code(s): J18.9 - PNEUMONIA, UNSPECIFIED ORGANISM SNOMED Code(s): 457040756 Plan: 1patient was in the hospital with extreme weakness patient did have a low-grade fever of 99.8 F also have a elevated white count with a left shift, patient did have mild cough and left-sided effusion and minimal infiltrate and the patient did have minimal cough concern for possible pneumonia 2 blood cultures are currently pending and inflammatory markers, mildly elevated 3Patient seemed to have a clinical improvement with Rocephin and Zithromax to continue while waiting for the work-up to be completed Dictation was produced using [employer] software. please excuse any grammatical, word or spelling errors.
--- NOTE | 2023-05-22 14:41 | P.PN ---
Subjective Progress Note Date: 05/16/23 Principal diagnosis: Fever possible pneumonia Patient is a 77-year male with a past medical history negative for diabetes mellitus hypertension CVA TIA seizure disorder did have a intracranial/subdural hematoma and delayed surgery presenting to the hospital last night for evaluation of weakness, patient did have a low-grade fever, chest x-ray left lingular infiltrate concerning for pneumonia on today's evaluation that is 05/16/2023, the patient remains to be afebrile, the patient is is breathing comfortably on room air, the patient did have mild cough no nausea no vomiting and abdominal pain and no diarrhea On today's blood work the patient white count is 7.98, creatinine is 1.0, and no sputum was collected blood culture negative so far Objective - Vital Signs Vital signs: Vital Signs Temp 97.9 F 05/16/23 07:00 Pulse 61 05/16/23 07:00 Resp 16 05/16/23 07:00 BP 125/72 05/16/23 07:00 Pulse Ox 96 05/16/23 07:00 FiO2 Intake & Output 05/15/23 05/16/23 05/16/23 18:59 06:59 18:59 Intake Total 118 Output Total 500 1425 225 Balance -460 -0095 -162 Intake: Oral 118 Output: Urine 500 1425 225 Other: Voiding Method Urinal Urinal # Voids 1 - Exam GENERAL DESCRIPTION: Middle-aged male lying in bed, no distress. No tachypnea or accessory muscle of respiration use. HEENT: Shows Pallor , no scleral icterus. Oral mucous membrane is dry. No pharyngeal erythema or thrush NECK: Trachea central, no thyromegaly. LUNGS: Unlabored breathing. Clear to auscultation anteriorly. No wheeze or crackle. HEART: S1, S2, regular rate and rhythm. No loud murmur ABDOMEN: Soft, no tenderness , guarding or rigidity, no organomegaly EXTREMITIES: No edema of feet. SKIN: No rash, no masses palpable. NEUROLOGICAL: The patient is awake, alert, oriented x3, mood and affect normal. - Labs CBC & Chem 7: 05/16/23 05:24 05/16/23 05:24 Labs: Abnormal Lab Results - Last 24 Hours (Table) 05/15/23 05/15/23 05/15/23 Range/Units 12:25 17:24 20:05 RBC (4.40-5.60) X 10*6/uL Hgb (13.0-17.0) d/dL Hct (39.6-50.0) % MCH (27.0-32.0) pg Plt Count (140-440) X 10*3/uL Monocytes # (0.20-1.00) X 10*3/uL BUN/Creatinine Ratio (12.00-20.00) Ratio Glucose (70-110) mg/dL POC Glucose (mg/dL) 369 H 398 H 223 H (70-110) mg/dL Calcium (8.7-10.3) mg/dL Total Protein (6.2-8.2) d/dL Albumin (3.8-4.9) d/dL 05/16/23 05/16/23 05/16/23 Range/Units 05:24 05:24 06:05 RBC 3.84 L (4.40-5.60) X 10*6/uL Hgb 12.8 L (13.0-17.0) d/dL Hct 36.0 L (39.6-50.0) % MCH 33.3 H (27.0-32.0) pg Plt Count 139 L (140-440) X 10*3/uL Monocytes # 1.46 H (0.20-1.00) X 10*3/uL BUN/Creatinine Ratio 11.20 L (12.00-20.00) Ratio Glucose 223 H (70-110) mg/dL POC Glucose (mg/dL) 234 H (70-110) mg/dL Calcium 8.4 L (8.7-10.3) mg/dL Total Protein 5.1 L (6.2-8.2) d/dL Albumin 3.4 L (3.8-4.9) d/dL Microbiology - Last 24 Hours (Table) 05/14/23 14:37 Blood Culture - Preliminary Blood Assessment and Plan (1) Pneumonia Status: Acute Code(s): J18.9 - PNEUMONIA, UNSPECIFIED ORGANISM SNOMED Code(s): 353192988 Plan: 1patient was in the hospital with extreme weakness patient did have a low-grade fever of 99.8 F also have a elevated white count with a left shift, patient did have mild cough and left-sided effusion and minimal infiltrate and the patient did have minimal cough concern for possible pneumonia 2 blood cultures are negative so far 3Patient seemed to have a clinical improvement on Rocephin and Zithromax , plan to finish therapy with short course of oral Ceftin discussed with SOFTWARE DEVELOPMENT LEADER for admitting day working on discharge Dictation was produced using [employer] dictation software. please excuse any grammatical, word or spelling errors. Time with Patient: Less than 30
== END 2023-05-16 13:01 | disposition home or self-care (01) ==
LOC: EC 22:47 → 6NMEDSUR 05-14 05:11
PROVIDERS: ADMIT Internal Medicine; ATTEND Internal Medicine
DX: K52.9 Noninfective gastroenteritis and colitis, unspecified (principal); R79.89 Other specified abnormal findings of blood chemistry; J18.9 Pneumonia, unspecified organism; E86.0 Dehydration; R53.1 Weakness; E11.9 Type 2 diabetes mellitus without complications; I10 Essential (primary) hypertension; F32.A Depression, unspecified; E78.5 Hyperlipidemia, unspecified; G40.909 Epilepsy, unspecified, not intractable, without status epilepticus; Z86.73 Personal history of transient ischemic attack (TIA), and cerebral infarction without residual deficits; Z79.84 Long term (current) use of oral hypoglycemic drugs; Z79.899 Other long term (current) drug therapy; Z88.2 Allergy status to sulfonamides
CPT/HCPCS: 96361 ×2; 96365; 96366; 96372 ×3; 99285; 36415; 93005; 97162; 97530 ×2; 97166; 80164; 83880; 80053 ×3; 80177; 82607; 82550; 83605 ×2; 83735 ×2; 84100 ×2; 84443; 84484 ×2; 85025 ×3; 85610; 85730; 86140; 81003; 87040; 83036; 84145; 71045; 71046; 70450; 74176; G0378 ×3; J0696 ×2

== ENCOUNTER → 2024-02-20 | Outpatient (CLI) | payer MEDICARE, OTHER | LOC: NEUROMAIN 12:30 | PROVIDERS: ATTEND Psychiatry & Neurology Neurology | DX: G40.909 Epilepsy, unspecified, not intractable, without status epilepticus (principal); Z88.2 Allergy status to sulfonamides; Z88.8 Allergy status to other drugs, medicaments and biological substances | CPT/HCPCS: 95700; 95713 ==